=== PATIENT | male | born 1955 | race Hispanic/Latino ===

== ENCOUNTER 2018-03-05 12:25 | Inpatient (IN) | payer OTHER ==
[2018-03-05] MEDS ORDERED: Sodium Chloride 0.9% 1,000 ML IV ONE ×2 (13:23→15:04)
[2018-03-05 13:32] LABS: BASO % 0.5 % (0.0-2.0); EOS % 0.2 % (0.0-4.0); HEMOGLOBIN 15.7 g/dL (12.0-18.0); LYMPH # 0.6 K/uL (1.0-4.3); LYMPH % 6.4 % (20.0-40.0); MEAN CELL VOLUME 86.3 fL (80.0-94.0); MEAN CORPUSCULAR HEMOGLOBIN 29.1 pg (27.0-31.0); MEAN CORPUSCULAR HGB CONC 33.7 g/dL (33.0-37.0); MEAN PLATELET VOLUME 8.5 fL (7.2-11.7); MONO # 0.6 K/uL (0.0-0.8); MONO % 6.6 % (0.0-10.0); NEUT # 7.8 K/uL (1.8-7.0); NEUT % 86.3 % (50.0-75.0); NRBC % 0.1 % (0.0-2.0); PLATELET COUNT 239 K/uL (130-400); RED CELL DISTRIBUTION WIDTH 14.7 % (11.5-14.5)
[2018-03-05 13:46] LABS: ALBUMIN 3.2 g/dL (3.5-5.0); ALT/SGPT 6 U/L (21-72); AST/SGOT 36 U/L (17-59); BLOOD UREA NITROGEN 9 mg/dL (9-20); CALCIUM 8.4 mg/dl (8.6-10.4); GFR NON-AFRICAN AMERICAN > 60
--- NOTE | 2018-03-05 13:48 | C.PDOC ---
History Of Present Illness 62 y/o male, with history of diabetes and hypertension, comes in stating that he fell yesterday morning after feeling weak and had difficulty walking. Patient states he was in bed and got up to use the bathroom when he started feeling weak and slid to the floor. Patient was unable to get up and spent most of his day in his bedroom on the floor. States some residents in his apartment eventually came to check on him and found him on floor, prompting them to call EMS. Upon arrival, patient was helped to bed by EMS and felt okay and refused transport to the hospital. During that night, he got up and felt weak again. Patient did not eat or drink anything during the day and again fell to the floor, where he called 911. Patient presents to ED stating he has trouble walking with his legs and has chronic pain but nothing new. Otherwise he denies injury, chest pain, SOB, headache, LOC, or head injury. Time Seen by Provider: 03/05/18 13:16 Chief Complaint (Nursing): Weakness/Neurological Deficit History Per: Patient History/Exam Limitations: no limitations Onset/Duration Of Symptoms: Days Current Symptoms Are (Timing): Still Present Past Medical History Reviewed: Historical Data, Nursing Documentation, Vital Signs Vital Signs: Last Vital Signs Temp 98.7 F 03/05/18 12:36 Pulse 96 H 03/05/18 13:31 Resp 23 03/05/18 13:31 BP 148/84 03/05/18 13:31 Pulse Ox 97 03/05/18 13:31 - Medical History PMH: Diabetes, HTN Denies: Chronic Kidney Disease Surgical History: Cholecystectomy (05/2014) - [facility] Procedures DETACHMENT AT LEFT 5TH TOE, COMPLETE, OPEN APPROACH (02/04/15) Family History: States: No Known Family Hx - Social History Hx Tobacco Use: No Hx Alcohol Use: No Hx Substance Use: No - Immunization History Hx Tetanus Toxoid Vaccination: No Hx Influenza Vaccination: No Hx Pneumococcal Vaccination: No Review Of Systems Constitutional: Positive for: Weakness, Malaise. Negative for: Fever Cardiovascular: Positive for: Edema (chronic). Negative for: Chest Pain Respiratory: Negative for: Shortness of Breath Gastrointestinal: Negative for: Abdominal Pain, Diarrhea Musculoskeletal: Positive for: Leg Pain (bilaterally) Neurological: Negative for: Headache Physical Exam - Physical Exam Appears: Non-toxic, In Acute Distress, Unkempt Skin: Warm, Dry, Rash (groin and perineum including scrotum extending onto bilateral thighs, moist erythema ) Head: Atraumatic, Normacephalic Eye(s): bilateral: Normal Inspection, PERRL, EOMI Oral Mucosa: Dry Neck: Supple Chest: Symmetrical Cardiovascular: Rhythm Regular (tachycardic with occasional PVCs), No Murmur Respiratory: Normal Breath Sounds, No Rales, No Rhonchi, No Wheezing Gastrointestinal/Abdominal: Soft, No Tenderness, No Guarding Extremity: Pedal Edema (on bilateral legs; tense brawny edema with weeping from lower legs) Extremity: Bilateral: Normal Color And Temperature, Normal ROM Neurological/Psych: Oriented x3, Normal Speech ED Course And Treatment - Laboratory Results Result Diagrams: 18 13:28 1218 13:28 Lab Interpretation: Abnormal (Glucose 341, CPK 396, urine concentrated with blood, ketones and glucose) ECG: Interpreted By Ri ECG Rhythm: Junctional Rhythm (tachycardic with occasional PVCs), ST/T Changes (nonspecific) O2 Sat by Pulse Oximetry: 97 (RA) Pulse Ox Interpretation: Normal - Radiology CXR: Interpreted by Ri CXR Interpretation: Yes: Cardiomegaly (with vascular congestion). 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 Medical Decision Making Medical Decision Making: Plan: --EKG --Labs --IV fluids --Urinalysis Disposition - Disposition Disposition: HOSPITALIZED Disposition Time: 16:03 Condition: STABLE - POA Present On Arrival: Poor Glycemic Control - Clinical Impression Clinical Impression: Uncontrolled diabetes mellitus, Dehydration, Tinea cruris - Scribe Statement The provider has reviewed the documentation as recorded by the Josephine Wodo Provider Attestation: All medical record entries made by the Josephine were at my direction and personally dictated by me. I have reviewed the chart and agree that the record accurately reflects my personal performance of the history, physical exam, medical decision making, and the department course for this patient. I have also personally directed, reviewed, and agree with the discharge instructions and disposition.
[2018-03-05] MEDS ORDERED: Sodium Chloride 0.9% 1,000 ML ONE ×2 (13:50→15:10)
[2018-03-05 14:23] LABS: BANDS 1 % (0-2); LYMPHOCYTE 6 % (20-40); MONOCYTE 7 % (0-10); NEUTROPHIL 86 % (50-75); PLATELET ESTIMATE NORMAL (NORMAL); TOTAL CELLS COUNTED 100
[2018-03-05 14:24] LABS: ANISOCYTOSIS SLIGHT; LARGE PLATELETS PRESENT
[2018-03-05 15:02] LABS: SQUAMOUS EPITHIAL 1 /hpf (0-5); URINE BACTERIA RARE (<OCC); URINE BILIRUBIN NEGATIVE (NEGATIVE); URINE BLOOD 2+ (NEGATIVE); URINE CLARITY Clear (Clear); URINE COLOR Yellow (YELLOW); URINE GLUCOSE (UA) 3+ mg/dL (Normal); URINE LEUKOCYTE ESTERASE TRACE Leu/uL (Negative); URINE PROTEIN 3+ mg/dL (NEGATIVE); URINE UROBILINOGEN NORMAL mg/dL (0.2-1.0)
[2018-03-05 16:05] LABS: INFLUENZA A B NEGATIVE FOR FLU A/B (NEGATIVE)
[2018-03-05 16:16] LABS: TROPONIN I 0.046 ng/mL (0.00-0.120)
--- NOTE | 2018-03-05 16:30 | CP.PCM.HP ---
<Aida Wei - Last Filed: 03/05/18 17:38> History of Present Illness - History of Present Illness History of Present Illness: CC: I fell Patient is a 62 year old male with PMHx of DM2 and HTN who presents to the ED today s/p 2 falls. Pt reports he fell yesterday while trying to get up from bed. Pt reports he felt somewhat lightheaded, then slipped on his wood floor attempting to get out of bed. Pt reports he landed on his bottom and denies LOC or trauma to head. Pt was then unable to get up from floor, and remained there overnight until neighbors called EMS. Pt refused to go to hospital as he thought the lightheadedness had passed, and had no pain. Pt then sustained a second fall getting out of bed this morning, and immediately called EMS to bring him to ED. Once again pt reports attempting to roll out of bed, falling onto knees; denies LOC of trauma to head. Pt denies previous history of falls or syncopal events. Pt reports approximately 2 months of dry cough. Swelling in legs bilaterally. Numbness to medial dorsum of feet bilaterally. Patient denies recent illness or fever like symptoms including chilss/sweats. Denies chest pain, SOB, abdominal pain, nausea, diarrhea, dysuria. PMD: [place] PMHx: DM2, HTN, PSHx: left 5th toe amputation Meds: metformin, unknown antihypertensive Allergies: NKDA FamHx: DM2, HTN SocHx: denies alcohol/tobacco/drug use. Lives alone Healthcare proxy: Rut Tate, sister Code status: Wants DNR/DNI Present on Admission - Present on Admission Any Indicators Present on Admission: No Review of Systems - EENT Eyes: absent: Blurred Vision - Cardiovascular Cardiovascular: Leg Edema, Leg Ulcers. absent: Chest Pain - Respiratory Respiratory: Cough. absent: Dyspnea - Gastrointestinal Gastrointestinal: absent: Abdominal Pain, Diarrhea, Nausea - Genitourinary Genitourinary: absent: Difficulty Urinating, Dysuria - Integumentary Integumentary: Change in Pigmentation, Swelling (b/l legs) - Neurological Neurological: Numbness (medial feet b/l), Paresthesias. absent: Abnormal Gait - Psychiatric Psychiatric: absent: Confusion Past Patient History - Past Medical History & Family History Past Medical History?: Yes - Past Social History Smoking Status: Never Smoked - CARDIAC Hx Hypertension: Yes - PULMONARY Hx Respiratory Disorders: No - NEUROLOGICAL Hx Neurological Disorder: No - HEENT Hx HEENT Problems: No - RENAL Hx Chronic Kidney Disease: No - ENDOCRINE/METABOLIC Hx Diabetes Mellitus Type 2: Yes - HEMATOLOGICAL/ONCOLOGICAL Hx Blood Disorders: No - INTEGUMENTARY Hx Dermatological Problems: No - MUSCULOSKELETAL/RHEUMATOLOGICAL Hx Musculoskeletal Disorders: No Hx Falls: No - GASTROINTESTINAL Hx Gastrointestinal Disorders: No - GENITOURINARY/GYNECOLOGICAL Hx Genitourinary Disorders: No - PSYCHIATRIC Hx Substance Use: No - SURGICAL HISTORY Hx Cholecystectomy: Yes (05/2014) - ANESTHESIA Hx Anesthesia: Yes Hx Anesthesia Reactions: No Meds Allergies/Adverse Reactions: Allergies Allergy/AdvReac Type Severity Reaction Status Date / Time No Known Allergies Allergy Verified 03/05/18 12:30 Physical Exam - Constitutional Appears: No Acute Distress, Unkempt - Head Exam Head Exam: ATRAUMATIC, NORMAL INSPECTION, NORMOCEPHALIC - Eye Exam Eye Exam: EOMI, Scleral icterus Pupil Exam: NORMAL ACCOMODATION, PERRL - ENT Exam ENT Exam: Mucous Membranes Dry, Normal Exam Additional comments: nasal mucosa non-erythematous, dry - Neck Exam Neck exam: Positive for: Normal Inspection. Negative for: Lymphadenopathy, Thyromegaly - Respiratory Exam Respiratory Exam: Rales (b/l basilar rales), NORMAL BREATHING PATTERN. absent: Respiratory Distress - Cardiovascular Exam Cardiovascular Exam: Tachycardia, +S1, +S2. absent: REGULAR RHYTHM (occasion 4th or 5th skipped/extra beat) - GI/Abdominal Exam GI & Abdominal Exam: Normal Bowel Sounds, Soft. absent: Tenderness - Exam Exam: Scrotal Swelling. absent: NORMAL INSPECTION (scrotum and surrounding groing grossly erythematous. Penile retraction. B/L intertriginous groin with visible white fungus, moist.) - Extremities Exam Additional comments: B/L LE edema, red. Blanching. Disappears with leg raise RLE: linear unstageable lesion extending down right canchola anteriorly, approx 10cm in length. Right calf with multiple ulcerations from 1-4cm, stage 2. Left LE, no visible ulcerations. 5th digit amputated. Distal 1/3 of lower legs B/L cov ered with scaly skin/exophytic growths to toes. Nails thickened and discolored. - Back Exam Additional comments: erythematous crevices on buttock moist, covered with white fungus - Neurological Exam Neurological exam: Alert, Oriented x3 - Psychiatric Exam Psychiatric exam: Normal Affect, Normal Mood - Skin Skin Exam: Warm Results - Vital Signs Recent Vital Signs: Last Vital Signs Temp 98.7 F 03/05/18 12:36 Pulse 99 H 03/05/18 16:02 Resp 21 03/05/18 16:02 BP 152/86 H 03/05/18 16:02 Pulse Ox 97 03/05/18 16:04 - Labs Result Diagrams: 03/05/18 13:28 03/05/18 13:28 Labs: Laboratory Results - last 24 hr 03/05/18 03/05/18 03/05/18 13:03 13:28 13:28 WBC 9.0 D RBC 5.40 Hgb 15.7 Hct 46.6 MCV 86.3 MCH 29.1 MCHC 33.7 RDW 14.7 H Plt Count 239 MPV 8.5 Neut % (Auto) 86.3 H Lymph % (Auto) 6.4 L Wallace % (Auto) 6.6 Eos % (Auto) 0.2 Baso % (Auto) 0.5 Neut # (Auto) 7.8 H Lymph # (Auto) 0.6 L Wallace # (Auto) 0.6 Eos # (Auto) 0.0 Baso # (Auto) 0.0 Neutrophils % (Manual) 86 H Band Neutrophils % 1 Lymphocytes % (Manual) 6 L Monocytes % (Manual) 7 Platelet Estimate Normal Large Platelets Present Anisocytosis (manual) Slight Sodium 133 Potassium 4.5 Chloride 100 Carbon Dioxide 22 Anion Gap 17 BUN 9 Creatinine 0.6 L Est GFR ( Amer) > 60 Est GFR (Non-Af Amer) > 60 POC Glucose (mg/dL) 354 H Random Glucose 341 H Calcium 8.4 L Magnesium 1.7 Total Bilirubin 2.0 H AST 36 ALT 6 L D Alkaline Phosphatase 70 Total Creatine Kinase 396 H Troponin I Total Protein 6.6 Albumin 3.2 L Globulin 3.4 Albumin/Globulin Ratio 1.0 Urine Color Urine Clarity Urine pH Ur Specific [place] Urine Protein Urine Glucose (UA) Urine Ketones Urine Blood Urine Nitrate Urine Bilirubin Urine Urobilinogen Ur Leukocyte Esterase Urine WBC (Auto) Urine RBC (Auto) Ur Squamous Epith Cells Urine Bacteria Hyaline Casts Influenza Typ A,B (EIA) 03/05/18 03/05/18 03/05/18 14:40 15:40 15:44 WBC RBC Hgb Hct MCV MCH MCHC RDW Plt Count MPV Neut % (Auto) Lymph % (Auto) Wallace % (Auto) Eos % (Auto) Baso % (Auto) Neut # (Auto) Lymph # (Auto) Wallace # (Auto) Eos # (Auto) Baso # (Auto) Neutrophils % (Manual) Band Neutrophils % Lymphocytes % (Manual) Monocytes % (Manual) Platelet Estimate Large Platelets Anisocytosis (manual) Sodium Potassium Chloride Carbon Dioxide Anion Gap BUN Creatinine Est GFR ( Amer) Est GFR (Non-Af Amer) POC Glucose (mg/dL) Random Glucose Calcium Magnesium Total Bilirubin AST ALT Alkaline Phosphatase Total Creatine Kinase Troponin I 0.0460 Total Protein Albumin Globulin Albumin/Globulin Ratio Urine Color Yellow Urine Clarity Clear Urine pH 5.0 Ur Specific [place] 1.027 Urine Protein 3+ H Urine Glucose (UA) 3+ H Urine Ketones 1+ H Urine Blood 2+ H Urine Nitrate Negative Urine Bilirubin Negative Urine Urobilinogen Normal Ur Leukocyte Esterase Trace Urine WBC (Auto) 7 H Urine RBC (Auto) 19 H Ur Squamous Epith Cells 1 Urine Bacteria Rare Hyaline Casts 3-5 H Influenza Typ A,B (EIA) Negative for flu a/b Assessment & Plan - Assessment and Plan (Free Text) Assessment: 62 year old male with PMHx of DM2, HTN admitted s/p fall; evaluated for LE lymphedema/venous insufficiency Plan: s/p fall, 2/2 LE weakness/parasthesias, new onset HF -fall risk protocol -f/u head CT -f/u knee x-rays -f/u hip x-ray -TSH, T4, RPR, vit b12, folate, vit D, UDS Cardiomegaly, R/O CHF -abnormal EKG w/ PVCs and ST/T wave abnormalities -f/u cardiac enzymes, troponin, pBNP -CXR -lasix -f/u echo -head of bed @45 degrees -daily weights, I/O -cardio consult Dr. Shahram GUZMAN edema, likely 2/2 chronic venous insufficiency vs HF -SCD contraindication -lasix -non erythematous -ulcers to be eval and treated by wound care -f/u LE duplex -podiatry consult, Dr. Guillermina GUZMAN ulcers, stage 2 and unstageable -lasix -wound care Fungal infection, B/L inguinal, scrotal, intergluteal cleft -topical nystatin BID [id number] -rowley for penile retraction, rowley care w/ betadine TID DM2 -hold home meds -hgb a1c -ISS -hypoglycemia protocol -lipid panel Poor hygeine, difficulty caring for self-pt agreed -keycase assembler/social eval -PT eval, likely to OMI HTN -lasix -lisinopril Possible UTI -urine cx -ceftriaxone 1g qd Ppx -lactobacillus -HH low Na diet -DVT ppx, heparin after CT head negative, DVT risk~4 Discussed w/ Dr. Luna -Aida Wei, PGY-1 <José Miguel Luna - Last Filed: 03/06/18 20:14> Results - Vital Signs Recent Vital Signs: Last Vital Signs Temp 99.3 F 03/06/18 15:00 Pulse 92 H 03/06/18 18:00 Resp 18 03/06/18 15:00 BP 159/75 H 03/06/18 16:18 Pulse Ox 98 03/06/18 15:00 - Labs Result Diagrams: 03/06/18 08:33 03/06/18 08:33 Labs: Laboratory Results - last 24 hr 03/05/18 03/06/18 03/06/18 21:00 02:02 07:04 WBC RBC Hgb Hct MCV MCH MCHC RDW Plt Count MPV Neut % (Auto) Lymph % (Auto) Wallace % (Auto) Eos % (Auto) Baso % (Auto) Neut # (Auto) Lymph # (Auto) Wallace # (Auto) Eos # (Auto) Baso # (Auto) Sodium Potassium Chloride Carbon Dioxide Anion Gap BUN Creatinine Est GFR ( Amer) Est GFR (Non-Af Amer) POC Glucose (mg/dL) 435 H* 300 H 260 H Random Glucose Hemoglobin A1c Calcium Phosphorus Magnesium Total Bilirubin AST ALT Alkaline Phosphatase Total Protein Albumin Globulin Albumin/Globulin Ratio Triglycerides Cholesterol LDL Cholesterol Direct HDL Cholesterol Digoxin 03/06/18 03/06/18 03/06/18 08:33 08:33 08:33 WBC 7.0 RBC 4.98 Hgb 14.0 Hct 42.5 MCV 85.3 MCH 28.1 MCHC 32.9 L RDW 14.6 H Plt Count 192 MPV 8.4 Neut % (Auto) 72.9 Lymph % (Auto) 14.8 L Wallace % (Auto) 9.3 Eos % (Auto) 2.2 Baso % (Auto) 0.8 Neut # (Auto) 5.1 Lymph # (Auto) 1.0 Wallace # (Auto) 0.7 Eos # (Auto) 0.2 Baso # (Auto) 0.1 Sodium 139 Potassium 3.0 L Chloride 102 Carbon Dioxide 30 Anion Gap 10 BUN 12 Creatinine 0.8 Est GFR ( Amer) > 60 Est GFR (Non-Af Amer) > 60 POC Glucose (mg/dL) Random Glucose 221 H Hemoglobin A1c 12.7 H Calcium 8.4 L Phosphorus 3.4 Magnesium 1.7 Total Bilirubin 1.0 AST 24 ALT 22 Alkaline Phosphatase 65 Total Protein 5.6 L Albumin 2.8 L Globulin 2.8 Albumin/Globulin Ratio 1.0 Triglycerides 112 Cholesterol 119 LDL Cholesterol Direct 64 HDL Cholesterol 47 Digoxin 03/06/18 03/06/18 03/06/18 08:33 11:23 16:04 WBC RBC Hgb Hct MCV MCH MCHC RDW Plt Count MPV Neut % (Auto) Lymph % (Auto) Wallace % (Auto) Eos % (Auto) Baso % (Auto) Neut # (Auto) Lymph # (Auto) Wallace # (Auto) Eos # (Auto) Baso # (Auto) Sodium Potassium Chloride Carbon Dioxide Anion Gap BUN Creatinine Est GFR ( Amer) Est GFR (Non-Af Amer) POC Glucose (mg/dL) 268 H 277 H Random Glucose Hemoglobin A1c Calcium Phosphorus Magnesium Total Bilirubin AST ALT Alkaline Phosphatase Total Protein Albumin Globulin Albumin/Globulin Ratio Triglycerides Cholesterol LDL Cholesterol Direct HDL Cholesterol Digoxin < 0.4 L Attending/Attestation - Attestation I have personally seen and examined this patient.: Yes I have fully participated in the care of the patient.: Yes I have reviewed all pertinent clinical information: Yes Notes (Text): 03/06/18 20:13 This is a late entry. Patient was seen together with resident Dr Carmina Wei at the time of admission on 03/05/18 in ER Bed #9. History, Physical, Assessment and Plan, and all Orders were gone over with Dr. Wei. José Miguel Luna D.O.
[2018-03-05 16:41] LABS: BARBITURATES, UR NEGATIVE (NEGATIVE); BENZODIAZEPINES, UR NEGATIVE (NEGATIVE); OPIATES, UR NEGATIVE (NEGATIVE); PHENCYCLIDINE, UR NEGATIVE (NEGATIVE)
[2018-03-05 16:56] LABS: RAPID PLASMA REAGIN NONREACTIVE (NONREACTIVE)
[2018-03-05] MEDS ORDERED: Dextrose 50% SYRINGE Inj (50 ml) IV PRN (16:59)
[2018-03-05] MEDS ORDERED: Glucagon Recombinant 1 mg Inj IM PRN (16:59)
[2018-03-05] MEDS: Lactobacillus Acidophilus 500 MU Cap PO SCH (17:40)
[2018-03-05] MEDS ORDERED: cefTRIAXone 1 gm 1 GM/100 ML BAG IVPB ONE (17:40)
--- NOTE | 2018-03-05 17:44 | RAD ---
PROCEDURE: Radiographs of the pelvis and bilateral hips HISTORY: S/p Fall COMPARISON: None. FINDINGS: BONES: There is impacted fracture of the left femoral neck with mild valgus deformity of the major distal fracture fragment. No right hip fracture identified. Diffuse osteopenia suggests osteoporosis. JOINTS: Symmetric bilateral degenerative weight-bearing cortical sclerosis and osteophyte formation are identified at the hip joints without subluxation or dislocation evident. Lesser degenerative changes are seen the bilateral sacroiliac joints. Pubic symphysis: Unremarkable. SOFT TISSUES: Vasa differentia calcifications are identified in the pelvis soft tissues. OTHER FINDINGS: None. IMPRESSION: Impacted fracture left femoral neck without dislocation. Diffuse osteopenia suggests osteoporosis. Degenerative hip greater than sacroiliac joint changes bilaterally.
--- NOTE | 2018-03-05 17:46 | RAD ---
Date of service: 03/05/2018 PROCEDURE: Bilateral Knee Radiographs. HISTORY: S/P Fall COMPARISON: None. FINDINGS: BONES: No acute fracture or destructive bony lesion identified bilaterally. JOINTS: Advanced tricompartmental osteoarthritis appreciated manifest by joint space narrowing, articular cortical sclerosis and osteophyte development, seen worst at the bilateral medial femorotibial and patellofemoral compartments. SOFT TISSUES: Right Knee: Normal. Left Knee: Normal. JOINT EFFUSION: Small bilateral suprapatellar bursa effusions are identified with limited posterior vascular calcifications in the popliteal fossae. OTHER FINDINGS: None. IMPRESSION: Advanced tricompartmental osteoarthritis bilateral knees. No acute fracture, subluxation or dislocation.
[2018-03-05] MEDS ORDERED: (Novolin R) Insulin Human Regular 100 units/ml vial ONE (17:53)
--- NOTE | 2018-03-05 17:54 | CT ---
Date of service: 03/05/2018 PROCEDURE: CT HEAD WITHOUT CONTRAST. HISTORY: weakness COMPARISON: None available. TECHNIQUE: Axial computed tomography images were obtained through the head/brain without intravenous contrast. Radiation dose: Total exam DLP = 1093.3 mGy-cm. This CT exam was performed using one or more of the following dose reduction techniques: Automated exposure control, adjustment of the mA and/or kV according to patient size, and/or use of iterative reconstruction technique. FINDINGS: HEMORRHAGE: No intracranial hemorrhage. BRAIN: No mass effect or edema. Mild volume loss and [id number] white matter changes likely represent chronic microvascular ischemic disease. Sub centimeter encephalomalacia at the right basal ganglia likely represent chronic lacunar infarct. VENTRICLES: Unremarkable. No hydrocephalus. CALVARIUM: Unremarkable. PARANASAL SINUSES: Complete opacification of the left maxillary sinus. MASTOID AIR CELLS: Unremarkable as visualized. No inflammatory changes. OTHER FINDINGS: None. IMPRESSION: No evidence of acute intracranial hemorrhage intracranial collection mass effect or midline shift.
--- NOTE | 2018-03-05 17:58 | RAD ---
Date of service: 03/05/2018 HISTORY: weakness COMPARISON: No prior. FINDINGS: LUNGS: No definite acute infiltrate bilaterally. Nodule not excluded right base. Consider follow-up chest CT to exclude potential nodule. PLEURA: No significant pleural effusion identified, no pneumothorax apparent. CARDIOVASCULAR: No aortic atherosclerotic calcification present. Cardiomegaly with mild pulmonary vascular congestion appreciated. Study is somewhat underpenetrated accentuating bronchovascular markings. OSSEOUS STRUCTURES: No significant abnormalities. VISUALIZED UPPER ABDOMEN: Normal. OTHER FINDINGS: None. IMPRESSION: Cardiomegaly and pulmonary vascular congestion noted. No infiltrates bilaterally. Questionable nodule right base versus nipple shadow. Consider follow-up chest CT for more definitive characterization of right base.
[2018-03-05] MEDS: (Novolin R) Insulin Human Regular 100 units/ml vial SC SCH (21:07)
[2018-03-06] MEDS: (Novolin R) Insulin Human Regular 100 units/ml vial SC SCH ×4 (08:22→21:29)
--- NOTE | 2018-03-06 08:29 | CP.PCM.PN ---
<Aida Wei - Last Filed: 03/06/18 16:00> Subjective - Date & Time of Evaluation Date of Evaluation: 03/06/18 Time of Evaluation: 08:00 - Subjective Subjective: Patient examined at bedside, resting comfortably. Patient reports he slept well overnight and offers no complaint. Denies dizziness, chest pain, SOB, abdominal pain, nausea, diarrhea. Pt reports he doesn't know what nursing has done to him regarding cleaning of skin/fungus and wound care of ulcers. Pt was unaware he had a rowley inserted to collect urine. Denies pain. Objective - Vital Signs/Intake and Output Vital Signs (last 24 hours): Temp Pulse Resp BP Pulse Ox 98.9 F 83 10 L 158/75 H 96 03/06/18 07:00 03/06/18 07:29 03/06/18 07:00 03/06/18 07:00 03/06/18 07:00 Intake and Output: 03/06/18 03/06/18 06:59 18:59 Output Total 1200 Balance -1200 - Medications Medications: Current Medications Dextrose (Dextrose 50% Inj) 0 ml IV STAT PRN; Protocol PRN Reason: Hypoglycemia Protocol Dextrose (Glutose 15) 0 gm PO ONCE PRN; Protocol PRN Reason: Hypoglycemia Protocol Docusate Sodium (Colace) 100 mg PO BID [facility] Last Admin: 03/05/18 19:38 Dose: Not Given Furosemide (Lasix) 20 mg IVP Q12H [facility] Last Admin: 03/06/18 05:38 Dose: 20 mg Glucagon (Glucagen Diagnostic Kit) 0 mg IM STAT PRN; Protocol PRN Reason: Hypoglycemia Protocol Heparin Sodium (Porcine) (Heparin) 5,000 units SC Q8 [facility] Last Admin: 03/06/18 05:41 Dose: 5,000 units Dextrose (Dextrose 5% In Water 1000 Ml) 1,000 mls @ 0 mls/hr IV .Q0M PRN; Protocol PRN Reason: Hypoglycemia Protocol Ceftriaxone Sodium 1 gm/ (Sodium Chloride) 100 mls @ 100 mls/hr IVPB DAILY [facility]; Protocol Last Admin: 03/05/18 17:39 Dose: 100 mls/hr Insulin Human Regular (Novolin R) 0 unit SC ACHS [facility]; Protocol Last Admin: 03/05/18 21:07 Dose: 4 units Lactobacillus Acidophilus (Bacid Acidophilus) 1 cap PO BID [facility] Last Admin: 12/15/18 17:40 Dose: 1 cap Lisinopril (Zestril) 10 mg PO DAILY [facility] Last Admin: 03/05/18 17:40 Dose: 10 mg Morphine Sulfate (Morphine) 0.5 mg IVP Q6 PRN PRN Reason: Pain, moderate (4-7) Morphine Sulfate (Morphine) 1 mg IVP Q6 PRN PRN Reason: Pain, severe (8-10) Nystatin (Nystop Topical Powder) 1 applic TOP BID [facility] Stop: 03/20/18 18:00 Last Admin: 03/05/18 18:04 Dose: 1 applic Pneumococcal Polyvalent Vaccine (Pneumovax 23 Vaccine) 0.5 ml IM .ONCE ONE Stop: 03/08/18 10:01 - Labs Labs: 03/05/18 13:28 03/05/18 13:28 - Constitutional Appears: Non-toxic, No Acute Distress - Head Exam Head Exam: ATRAUMATIC, NORMAL INSPECTION, NORMOCEPHALIC - Eye Exam Eye Exam: EOMI, Normal appearance - ENT Exam ENT Exam: Mucous Membranes Moist, Normal Exam - Neck Exam Neck Exam: Normal Inspection - Respiratory Exam Respiratory Exam: Decreased Breath Sounds, Rales, NORMAL BREATHING PATTERN Additional comments: bibasilar rales - Cardiovascular Exam Cardiovascular Exam: REGULAR RHYTHM, +S1, +S2 - GI/Abdominal Exam GI & Abdominal Exam: Soft, Normal Bowel Sounds. absent: Tenderness - Exam Exam: absent: NORMAL INSPECTION (erythema to scrotum and inguinal folds, nystatin powder applied. Penile retraction with rowley draining clear yellow urine.) - Extremities Exam Additional comments: B/L LE from knees down 2+ pitting edema. Redness improved. Non tender to pa lpation. Much of excess skin/fungal growth cleaned from distal 1/3 of leg to toes, healthy intact skin now visible. RLE ulcers cleaned with ointment applied. Toes, thick and discolored. - Neurological Exam Neurological Exam: Alert, Awake, Oriented x3 - Psychiatric Exam Psychiatric exam: Normal Affect, Normal Mood - Skin Skin Exam: Dry, Warm Additional comments: LE ulcers and growths as noted above gluteal/inguinal erythema as noted above Assessment and Plan - Assessment and Plan (Free Text) Assessment: 62 year old male with PMHx of DM2, HTN admitted s/p fall; evaluated for LE l ymphedema/venous insufficiency Plan: CHF -abnormal EKG w/ PVCs and ST/T wave abnormalities -bnp~12,000 -CXR: cardiomegaly -lasix -f/u echo -head of bed @45 degrees -daily weights, I/O -cardio consult Dr. Omalley LE edema, likely 2/2 chronic venous insufficiency vs CHF -SCD contraindication -lasix -ulcers to be eval and treated by wound care -lac-hydrin to dorsum and heels b/l BID x7 days. Stop(03/13) -f/u LE duplex -f/u LE ABIs, r/o PAD -podiatry consult, Dr. Sarmiento s/p fall, 2/2 LE weakness/paresthesias, new onset HF -fall risk protocol -head CT, knee x-rays, hip x-ray negative for acute fracture. Left fem neck fracture-old LE ulcers, stage 2 and unstageable -lasix -wound care Fungal infection, B/L inguinal, scrotal, intergluteal cleft -topical nystatin BID [id number] -rowley for penile retraction, rowley care w/ betadine TID DM2, uncontrolled -hold home meds -hgb a1c 12.7 -ISS -lantus 26u added -hypoglycemia protocol -lipid panel WNL, add low dose crestor Poor hygeine, difficulty caring for self-pt agreed -caser up/social eval -PT eval, likely to OMI HTN -lasix -lisinopril -Coreg Possible UTI -f/u urine cx -ceftriaxone 1g qd -d/c cef if cxs negative Vitamin Deficiency -vit D, b12, Ppx -lactobacillus -HH low Na diet -DVT ppx, heparin, DVT risk~4 Discussed w/ Dr. Luna -Aida Wei, PGY-1 <José Miguel Luna - Last Filed: 03/06/18 20:09> Objective - Vital Signs/Intake and Output Vital Signs (last 24 hours): Temp Pulse Resp BP Pulse Ox 99.3 F 92 H 18 159/75 H 98 03/06/18 15:00 03/06/18 18:00 03/06/18 15:00 03/06/18 16:18 03/06/18 15:00 Intake and Output: 12/16/18 12/17/18 18:59 06:59 Intake Total 500 Output Total 150 Balance 350 - Medications Medications: Current Medications Aspirin (Aspirin Chewable) 81 mg PO DAILY [facility] Last Admin: 03/06/18 16:19 Dose: 81 mg Carvedilol (Coreg) 3.125 mg PO BID [facility] Last Admin: 03/06/18 17:59 Dose: 3.125 mg Dextrose (Dextrose 50% Inj) 0 ml IV STAT PRN; Protocol PRN Reason: Hypoglycemia Protocol Dextrose (Glutose 15) 0 gm PO ONCE PRN; Protocol PRN Reason: Hypoglycemia Protocol Docusate Sodium (Colace) 100 mg PO BID [facility] Last Admin: 03/06/18 17:59 Dose: 100 mg Ergocalciferol (Drisdol 50,000 Intl Units Cap) 1 cap PO Q7D [facility] Stop: 04/24/18 14:00 Last Admin: 03/06/18 14:19 Dose: 1 cap Furosemide (Lasix) 20 mg IVP Q12H [facility] Last Admin: 03/06/18 16:18 Dose: 20 mg Glucagon (Glucagen Diagnostic Kit) 0 mg IM STAT PRN; Protocol PRN Reason: Hypoglycemia Protocol Heparin Sodium (Porcine) (Heparin) 5,000 units SC Q8 [facility] Last Admin: 03/06/18 13:41 Dose: 5,000 units Dextrose (Dextrose 5% In Water 1000 Ml) 1,000 mls @ 0 mls/hr IV .Q0M PRN; Protocol PRN Reason: Hypoglycemia Protocol Ceftriaxone Sodium 1 gm/ (Sodium Chloride) 100 mls @ 100 mls/hr IVPB DAILY [facility]; Protocol Last Admin: 03/06/18 09:52 Dose: 100 mls/hr Insulin Glargine (Lantus) 26 unit SC HS [facility] Insulin Human Regular (Novolin R) 0 unit SC ACHS [facility]; Protocol Last Admin: 03/06/18 16:19 Dose: 6 units Lactic Acid (Lac-Hydrin 12% Lotion (225 G)) 0 gm EXT BID [facility] Stop: 03/20/18 16:00 Last Admin: 03/06/18 18:07 Dose: Not Given Lactobacillus Acidophilus (Bacid Acidophilus) 1 cap PO BID [facility] Last Admin: 03/06/18 17:59 Dose: 1 cap Lisinopril (Zestril) 10 mg PO DAILY [facility] Last Admin: 03/06/18 09:54 Dose: 10 mg Morphine Sulfate (Morphine) 0.5 mg IVP Q6 PRN PRN Reason: Pain, moderate (4-7) Morphine Sulfate (Morphine) 1 mg IVP Q6 PRN PRN Reason: Pain, severe (8-10) Nystatin (Nystop Topical Powder) 1 applic TOP BID [facility] Stop: 03/20/18 18:00 Last Admin: 03/06/18 18:00 Dose: 1 applic Pneumococcal Polyvalent Vaccine (Pneumovax 23 Vaccine) 0.5 ml IM .ONCE ONE Stop: 03/08/18 10:01 Potassium Chloride (Potassium Chloride Oral Soln) 20 meq PO Q2 [facility] Stop: 03/06/18 20:01 Last Admin: 03/06/18 18:21 Dose: 20 meq Potassium Chloride (K-Dur 20 Meq Er Tab) 20 meq PO ONCE ONE Stop: 03/07/18 08:01 Rosuvastatin Calcium (Crestor) 2.5 mg PO HS [facility] - Labs Labs: 03/06/18 08:33 03/06/18 08:33 Attending/Attestation - Attestation I have personally seen and examined this patient.: Yes I have fully participated in the care of the patient.: Yes I have reviewed all pertinent clinical information, including history, physical exam and plan: Yes Notes (Text): 03/06/18 19:55 Patient was seen and examined at 2:00 PM 03/06/18 Bed 566 P Care of this patient was gone over in detail with resident Dr. Carmina Wei. Please see her note for full details. Also on Exam: 2+ Pitting edema in bilateral LE from feet to the tibial tuberosities Low Vitamin B12: ordered Vitamin B12 1,000 mcg IM x 1 dose 03/06/18 Low Vitamin D: ordered Vitamin D 50,000 Units PO 1x/week on Sundays x 8 with last dose on 04/24/18. Upon discharge patient should be instructed to have repeat Vitamin D level 4 weeks after last dose F/U 2D Echocardiogram performance on Wednesday03/07/18 to help determine type of suspected Heart Failure. Patient is currently on ASA, Coreg, and Lisinopril. F/U performance of Venous Duplex Bilateral LE to rule out DVT. F/U performance of Arterial Duplex Bilateral LE to help determine possible PAD as cause of patient's bilateral lower leg pain although likely cause is the history of lower extremity edema likely secondary to undiagnosed Heart Failure. Patient has bilateral feet numbness on the dorsal aspect. This could be secondary to the edema. However, considering the HgBA1C > 12, this is likely due to Diabetic Neuropathy from uncontrolled diabetes. Patient was on oral medications for DM 2 (Metformin, Januvia, and Glucotrol). These were held due to the likely acute heart failure. Patient was placed on Regular Insulin Sliding Scale upon admission for 24 hours. Based upon a weight of 130 kg and that he is insulin naive, started him 0.2 units/kg of Lantus which comes out to 26 units Lantus to be started on night of 03/06/18. Medicine Team should adjust the Lantus and add premeal rapid acting insulin on 03/08/18 based upon accuchecks from 7 AM 03/07/18 through 7 AM 03/08/18. Patient will need to have Diabetic Counseling from the Diabetic Nurse from [place] and consult for her has been ordered. Follow up Urine Culture Follow up with Physical Therapy on 03/07/18. Follow up with [facility] on 03/07/18 as patient will likely need Subacute Rehab and home care/visiting nurse. José Miguel Luna D.O.
[2018-03-06 09:02] LABS: ALBUMIN 2.8 g/dL (3.5-5.0); ALT/SGPT 22 U/L (21-72); AST/SGOT 24 U/L (17-59); BLOOD UREA NITROGEN 12 mg/dL (9-20); CALCIUM 8.4 mg/dl (8.6-10.4); GFR NON-AFRICAN AMERICAN > 60; HDL CHOLESTEROL 47 mg/dL (30-70)
[2018-03-06 09:10] LABS: LDL CHOLESTEROL 64 mg/dL (0-129)
[2018-03-06 09:25] LABS: BASO # 0.1 K/uL (0.0-0.2); BASO % 0.8 % (0.0-2.0); EOS # 0.2 K/uL (0.0-0.7); EOS % 2.2 % (0.0-4.0); LYMPH % 14.8 % (20.0-40.0); MEAN CELL VOLUME 85.3 fL (80.0-94.0); MEAN CORPUSCULAR HEMOGLOBIN 28.1 pg (27.0-31.0); MEAN CORPUSCULAR HGB CONC 32.9 g/dL (33.0-37.0); MEAN PLATELET VOLUME 8.4 fL (7.2-11.7); MONO # 0.7 K/uL (0.0-0.8); MONO % 9.3 % (0.0-10.0); NEUT # 5.1 K/uL (1.8-7.0); NEUT % 72.9 % (50.0-75.0); RBC 4.98 Mil/uL (4.40-5.90); RED CELL DISTRIBUTION WIDTH 14.6 % (11.5-14.5)
[2018-03-06] MEDS: Lactobacillus Acidophilus 500 MU Cap PO SCH ×2 (09:54→17:59)
--- NOTE | 2018-03-06 10:41 | CT ---
Date of service: 03/05/2018 PROCEDURE: CT of the left hip without contrast HISTORY: DEFINITION OF FRACTURE COMPARISON: Comparison is made with the previous x-ray of the left hip and pelvis dated 03/05/2018 TECHNIQUE: Axial and reformatted coronal and sagittal CT images of the left hip were obtained. Axial and reformatted CT images of the right hip and pelvis were also obtained. Total exam DLP: 1106.53 FINDINGS: There is deformity in the left femoral neck associated with callus formation and periosteal thickening suggestive of old impacted fracture with callus formation. No definite CT evidence of acute fracture. No evidence of left hip dislocation. Moderate to severe degenerative changes at the left hip noted. There is heterogeneous sclerotic and small lytic changes noted at the right femur subcapital region without definite evidence of acute fracture. [id number] right hip osteoarthritic changes are also noted. There is a Vega catheter in the bladder. Mild diffuse soft tissue edema noted. No evidence of discrete hematoma or fluid collection. IMPRESSION: Findings suspicious for old impacted left femoral neck fracture. No definite CT evidence of acute fracture. Moderate to severe left hip osteoarthritis. Preliminary report was submitted by [facility] contains concordant findings.
--- NOTE | 2018-03-06 12:20 | CP.PCM.CON ---
<Gifty,Nader - Last Filed: 03/06/18 14:25> History of Present Illness - History of Present Illness History of Present Illness: Podiatry consult note for Dr. Sarmiento: 62 year old male Patient with PMHx of DM2 and HTN who Seen and evaluated at the bedside with attending Dr. Sarmiento for redness, swelling and skin breaks of the b/l LE. Pt reports he felt yesterday twice while trying to get up from bed. Patient states that he follows up with Dr. Sarmiento. Patient reports approximately 2 months of Swelling in legs bilaterally. Numbness to medial dorsum of feet bilaterally. Patient reports mild pain in his LE at this time. Patient denies any other pedal complaint Patient denies any recent illness. He denies any recent F/N/V/C or SOB. He denies chest pain, abdominal pain, nausea, diarrhea, dysuria. PMH: DM2, HTN, PSH: left 5th toe amputation Allergies: NKDA Social Hx: Patient denies alcohol/tobacco/drug use. Lives alone Review of Systems - Review of Systems Review of Systems: As per HPI - Constitutional Constitutional: As Per HPI Past Patient History - Past Medical History & Family History Past Medical History?: Yes - Past Social History Smoking Status: Never Smoked - CARDIAC Hx Hypertension: Yes - PULMONARY Hx Respiratory Disorders: No - NEUROLOGICAL Hx Neurological Disorder: No - HEENT Hx HEENT Problems: No - RENAL Hx Chronic Kidney Disease: No - ENDOCRINE/METABOLIC Hx Diabetes Mellitus Type 2: Yes - HEMATOLOGICAL/ONCOLOGICAL Hx Blood Disorders: No - INTEGUMENTARY Hx Dermatological Problems: No - MUSCULOSKELETAL/RHEUMATOLOGICAL Hx Musculoskeletal Disorders: No Hx Falls: Yes (fell at home, close to the nursing station) - GASTROINTESTINAL Hx Gastrointestinal Disorders: No - GENITOURINARY/GYNECOLOGICAL Hx Genitourinary Disorders: No - PSYCHIATRIC Hx Substance Use: No - SURGICAL HISTORY Hx Cholecystectomy: Yes (05/2014) - ANESTHESIA Hx Anesthesia: Yes Hx Anesthesia Reactions: No Meds Allergies/Adverse Reactions: Allergies Allergy/AdvReac Type Severity Reaction Status Date / Time No Known Allergies Allergy Verified 03/05/18 12:30 - Medications Medications: Current Medications Dextrose (Dextrose 50% Inj) 0 ml IV STAT PRN; Protocol PRN Reason: Hypoglycemia Protocol Dextrose (Glutose 15) 0 gm PO ONCE PRN; Protocol PRN Reason: Hypoglycemia Protocol Docusate Sodium (Colace) 100 mg PO BID [facility] Last Admin: 03/06/18 09:54 Dose: 100 mg Furosemide (Lasix) 20 mg IVP Q12H [facility] Last Admin: 03/06/18 05:38 Dose: 20 mg Glucagon (Glucagen Diagnostic Kit) 0 mg IM STAT PRN; Protocol PRN Reason: Hypoglycemia Protocol Heparin Sodium (Porcine) (Heparin) 5,000 units SC Q8 [facility] Last Admin: 03/06/18 05:41 Dose: 5,000 units Dextrose (Dextrose 5% In Water 1000 Ml) 1,000 mls @ 0 mls/hr IV .Q0M PRN; Protocol PRN Reason: Hypoglycemia Protocol Ceftriaxone Sodium 1 gm/ (Sodium Chloride) 100 mls @ 100 mls/hr IVPB DAILY [facility]; Protocol Last Admin: 03/06/18 09:52 Dose: 100 mls/hr Insulin Human Regular (Novolin R) 0 unit SC ACHS [facility]; Protocol Last Admin: 03/06/18 08:22 Dose: 6 units Lactobacillus Acidophilus (Bacid Acidophilus) 1 cap PO BID [facility] Last Admin: 03/06/18 09:54 Dose: 1 cap Lisinopril (Zestril) 10 mg PO DAILY [facility] Last Admin: 03/06/18 09:54 Dose: 10 mg Morphine Sulfate (Morphine) 0.5 mg IVP Q6 PRN PRN Reason: Pain, moderate (4-7) Morphine Sulfate (Morphine) 1 mg IVP Q6 PRN PRN Reason: Pain, severe (8-10) Nystatin (Nystop Topical Powder) 1 applic TOP BID [facility] Stop: 03/20/18 18:00 Last Admin: 03/06/18 09:53 Dose: 1 applic Pneumococcal Polyvalent Vaccine (Pneumovax 23 Vaccine) 0.5 ml IM .ONCE ONE Stop: 03/08/18 10:01 Physical Exam - Head Exam Head Exam: ATRAUMATIC, NORMOCEPHALIC - Extremities Exam Additional comments: B/L LE focused exam: Vasc: DP/PT pulses are non-palpable b/l 2ry to edema. Cap refill < 3 seconds to all digits. Skin temperature gradient warm to warm from proximal to distal b/l. +3 pitting edema noted to b/l LE up to the level of the tibial tuberosity. Erytheama and mottling noted to b/l LE up to the level of the upper 1/3 of the leg. The erythema blenches out by direct pressure. Neuro: Gross and protective sensations are grossly diminished b/l Derm: +3 pitting edema noted to b/l LE up to the level of the tibial tuberosity. Erytheama and mottling noted to b/l LE up to the level of the upper 1/3 of the leg. The erythema blenches out by direct pressure. scattered breaks in the skin of both legs covered by dry eschars. Superficial ulcerations o noted on the lateral aspect of the left leg with mild serous drainage, No malodor. MSK: Muscle power intact 5/5 to all major muscle groups b/l. Mild pain on palpating the leg B/L. - Neurological Exam Neurological exam: Alert, Oriented x3 Results - Vital Signs Recent Vital Signs: Last Vital Signs Temp 98.9 F 03/06/18 07:00 Pulse 90 03/06/18 09:53 Resp 10 L 03/06/18 07:00 BP 150/81 03/06/18 09:53 Pulse Ox 96 03/06/18 07:00 - Labs Result Diagrams: 03/06/18 08:33 03/06/18 08:33 Labs: Laboratory Results - last 24 hr 03/05/18 03/05/18 03/05/18 13:03 13:28 13:28 WBC 9.0 D RBC 5.40 Hgb 15.7 Hct 46.6 MCV 86.3 MCH 29.1 MCHC 33.7 RDW 14.7 H Plt Count 239 MPV 8.5 Neut % (Auto) 86.3 H Lymph % (Auto) 6.4 L [place] % (Auto) 6.6 Eos % (Auto) 0.2 Baso % (Auto) 0.5 Neut # (Auto) 7.8 H Lymph # (Auto) 0.6 L [place] # (Auto) 0.6 Eos # (Auto) 0.0 Baso # (Auto) 0.0 Neutrophils % (Manual) 86 H Band Neutrophils % 1 Lymphocytes % (Manual) 6 L Monocytes % (Manual) 7 Platelet Estimate Normal Large Platelets Present Anisocytosis (manual) Slight Sodium 133 Potassium 4.5 Chloride 100 Carbon Dioxide 22 Anion Gap 17 BUN 9 Creatinine 0.6 L Est GFR ( Amer) > 60 Est GFR (Non-Af Amer) > 60 POC Glucose (mg/dL) 354 H Random Glucose 341 H Calcium 8.4 L Phosphorus Magnesium 1.7 Total Bilirubin 2.0 H AST 36 ALT 6 L D Alkaline Phosphatase 70 Total Creatine Kinase 396 H Troponin I NT-Pro-B Natriuret Pep Total Protein 6.6 Albumin 3.2 L Globulin 3.4 Albumin/Globulin Ratio 1.0 Triglycerides Cholesterol LDL Cholesterol Direct HDL Cholesterol Vitamin B12 25-OH Vitamin D Total Free T4 TSH 3rd Generation Urine Color Urine Clarity Urine pH Ur Specific Barton Urine Protein Urine Glucose (UA) Urine Ketones Urine Blood Urine Nitrate Urine Bilirubin Urine Urobilinogen Ur Leukocyte Esterase Urine WBC (Auto) Urine RBC (Auto) Ur Squamous Epith Cells Urine Bacteria Hyaline Casts Digoxin Urine Opiates Screen Urine Methadone Screen Ur Barbiturates Screen Ur Phencyclidine Scrn Ur Amphetamines Screen U Benzodiazepines Scrn U Oth Cocaine Metabols U Cannabinoids Screen RPR Influenza Typ A,B (EIA) 03/05/18 03/05/18 03/05/18 14:40 15:04 15:05 WBC RBC Hgb Hct MCV MCH MCHC RDW Plt Count MPV Neut % (Auto) Lymph % (Auto) [place] % (Auto) Eos % (Auto) Baso % (Auto) Neut # (Auto) Lymph # (Auto) [place] # (Auto) Eos # (Auto) Baso # (Auto) Neutrophils % (Manual) Band Neutrophils % Lymphocytes % (Manual) Monocytes % (Manual) Platelet Estimate Large Platelets Anisocytosis (manual) Sodium Potassium Chloride Carbon Dioxide Anion Gap BUN Creatinine Est GFR ( Amer) Est GFR (Non-Af Amer) POC Glucose (mg/dL) Random Glucose Calcium Phosphorus Magnesium Total Bilirubin AST ALT Alkaline Phosphatase Total Creatine Kinase Troponin I NT-Pro-B Natriuret Pep Total Protein Albumin Globulin Albumin/Globulin Ratio Triglycerides Cholesterol LDL Cholesterol Direct HDL Cholesterol Vitamin B12 25-OH Vitamin D Total < 12.8 L Free T4 1.31 TSH 3rd Generation Urine Color Yellow Urine Clarity Clear Urine pH 5.0 Ur Specific Barton 1.027 Urine Protein 3+ H Urine Glucose (UA) 3+ H Urine Ketones 1+ H Urine Blood 2+ H Urine Nitrate Negative Urine Bilirubin Negative Urine Urobilinogen Normal Ur Leukocyte Esterase Trace Urine WBC (Auto) 7 H Urine RBC (Auto) 19 H Ur Squamous Epith Cells 1 Urine Bacteria Rare Hyaline Casts 3-5 H Digoxin Urine Opiates Screen Urine Methadone Screen Ur Barbiturates Screen Ur Phencyclidine Scrn Ur Amphetamines Screen U Benzodiazepines Scrn U Oth Cocaine Metabols U Cannabinoids Screen RPR Influenza Typ A,B (EIA) 03/05/18 03/05/18 03/05/18 15:40 15:44 16:07 WBC RBC Hgb Hct MCV MCH MCHC RDW Plt Count MPV Neut % (Auto) Lymph % (Auto) [place] % (Auto) Eos % (Auto) Baso % (Auto) Neut # (Auto) Lymph # (Auto) [place] # (Auto) Eos # (Auto) Baso # (Auto) Neutrophils % (Manual) Band Neutrophils % Lymphocytes % (Manual) Monocytes % (Manual) Platelet Estimate Large Platelets Anisocytosis (manual) Sodium Potassium Chloride Carbon Dioxide Anion Gap BUN Creatinine Est GFR ( Amer) Est GFR (Non-Af Amer) POC Glucose (mg/dL) Random Glucose Calcium Phosphorus Magnesium Total Bilirubin AST ALT Alkaline Phosphatase Total Creatine Kinase Troponin I 0.0460 NT-Pro-B Natriuret Pep Total Protein Albumin Globulin Albumin/Globulin Ratio Triglycerides Cholesterol LDL Cholesterol Direct HDL Cholesterol Vitamin B12 210 L 25-OH Vitamin D Total Free T4 TSH 3rd Generation 2.22 Urine Color Urine Clarity Urine pH Ur Specific Barton Urine Protein Urine Glucose (UA) Urine Ketones Urine Blood Urine Nitrate Urine Bilirubin Urine Urobilinogen Ur Leukocyte Esterase Urine WBC (Auto) Urine RBC (Auto) Ur Squamous Epith Cells Urine Bacteria Hyaline Casts Digoxin Urine Opiates Screen Negative Urine Methadone Screen Negative Ur Barbiturates Screen Negative Ur Phencyclidine Scrn Negative Ur Amphetamines Screen Negative U Benzodiazepines Scrn Negative U Oth Cocaine Metabols Negative U Cannabinoids Screen Negative RPR Nonreactive Influenza Typ A,B (EIA) Negative for flu a/b 03/05/18 03/05/18 03/05/18 16:22 17:24 21:00 WBC RBC Hgb Hct MCV MCH MCHC RDW Plt Count MPV Neut % (Auto) Lymph % (Auto) [place] % (Auto) Eos % (Auto) Baso % (Auto) Neut # (Auto) Lymph # (Auto) [place] # (Auto) Eos # (Auto) Baso # (Auto) Neutrophils % (Manual) Band Neutrophils % Lymphocytes % (Manual) Monocytes % (Manual) Platelet Estimate Large Platelets Anisocytosis (manual) Sodium Potassium Chloride Carbon Dioxide Anion Gap BUN Creatinine Est GFR ( Amer) Est GFR (Non-Af Amer) POC Glucose (mg/dL) 316 H 435 H* Random Glucose Calcium Phosphorus Magnesium Total Bilirubin AST ALT Alkaline Phosphatase Total Creatine Kinase Troponin I NT-Pro-B Natriuret Pep 62777 H Total Protein Albumin Globulin Albumin/Globulin Ratio Triglycerides Cholesterol LDL Cholesterol Direct HDL Cholesterol Vitamin B12 25-OH Vitamin D Total Free T4 TSH 3rd Generation Urine Color Urine Clarity Urine pH Ur Specific Barton Urine Protein Urine Glucose (UA) Urine Ketones Urine Blood Urine Nitrate Urine Bilirubin Urine Urobilinogen Ur Leukocyte Esterase Urine WBC (Auto) Urine RBC (Auto) Ur Squamous Epith Cells Urine Bacteria Hyaline Casts Digoxin Urine Opiates Screen Urine Methadone Screen Ur Barbiturates Screen Ur Phencyclidine Scrn Ur Amphetamines Screen U Benzodiazepines Scrn U Oth Cocaine Metabols U Cannabinoids Screen RPR Influenza Typ A,B (EIA) 03/06/18 03/06/18 03/06/18 02:02 07:04 08:33 WBC RBC Hgb Hct MCV MCH MCHC RDW Plt Count MPV Neut % (Auto) Lymph % (Auto) [place] % (Auto) Eos % (Auto) Baso % (Auto) Neut # (Auto) Lymph # (Auto) [place] # (Auto) Eos # (Auto) Baso # (Auto) Neutrophils % (Manual) Band Neutrophils % Lymphocytes % (Manual) Monocytes % (Manual) Platelet Estimate Large Platelets Anisocytosis (manual) Sodium 139 Potassium 3.0 L Chloride 102 Carbon Dioxide 30 Anion Gap 10 BUN 12 Creatinine 0.8 Est GFR ( Amer) > 60 Est GFR (Non-Af Amer) > 60 POC Glucose (mg/dL) 300 H 260 H Random Glucose 221 H Calcium 8.4 L Phosphorus 3.4 Magnesium 1.7 Total Bilirubin 1.0 AST 24 ALT 22 Alkaline Phosphatase 65 Total Creatine Kinase Troponin I NT-Pro-B Natriuret Pep Total Protein 5.6 L Albumin 2.8 L Globulin 2.8 Albumin/Globulin Ratio 1.0 Triglycerides 112 Cholesterol 119 LDL Cholesterol Direct 64 HDL Cholesterol 47 Vitamin B12 25-OH Vitamin D Total Free T4 TSH 3rd Generation Urine Color Urine Clarity Urine pH Ur Specific [place] Urine Protein Urine Glucose (UA) Urine Ketones Urine Blood Urine Nitrate Urine Bilirubin Urine Urobilinogen Ur Leukocyte Esterase Urine WBC (Auto) Urine RBC (Auto) Ur Squamous Epith Cells Urine Bacteria Hyaline Casts Digoxin Urine Opiates Screen Urine Methadone Screen Ur Barbiturates Screen Ur Phencyclidine Scrn Ur Amphetamines Screen U Benzodiazepines Scrn U Oth Cocaine Metabols U Cannabinoids Screen RPR Influenza Typ A,B (EIA) 03/06/18 03/06/18 03/06/18 08:33 08:33 11:23 WBC 7.0 RBC 4.98 Hgb 14.0 Hct 42.5 MCV 85.3 MCH 28.1 MCHC 32.9 L RDW 14.6 H Plt Count 192 MPV 8.4 Neut % (Auto) 72.9 Lymph % (Auto) 14.8 L [place] % (Auto) 9.3 Eos % (Auto) 2.2 Baso % (Auto) 0.8 Neut # (Auto) 5.1 Lymph # (Auto) 1.0 [place] # (Auto) 0.7 Eos # (Auto) 0.2 Baso # (Auto) 0.1 Neutrophils % (Manual) Band Neutrophils % Lymphocytes % (Manual) Monocytes % (Manual) Platelet Estimate Large Platelets Anisocytosis (manual) Sodium Potassium Chloride Carbon Dioxide Anion Gap BUN Creatinine Est GFR ( Amer) Est GFR (Non-Af Amer) POC Glucose (mg/dL) 268 H Random Glucose Calcium Phosphorus Magnesium Total Bilirubin AST ALT Alkaline Phosphatase Total Creatine Kinase Troponin I NT-Pro-B Natriuret Pep Total Protein Albumin Globulin Albumin/Globulin Ratio Triglycerides Cholesterol LDL Cholesterol Direct HDL Cholesterol Vitamin B12 25-OH Vitamin D Total Free T4 TSH 3rd Generation Urine Color Urine Clarity Urine pH Ur Specific [place] Urine Protein Urine Glucose (UA) Urine Ketones Urine Blood Urine Nitrate Urine Bilirubin Urine Urobilinogen Ur Leukocyte Esterase Urine WBC (Auto) Urine RBC (Auto) Ur Squamous Epith Cells Urine Bacteria Hyaline Casts Digoxin < 0.4 L Urine Opiates Screen Urine Methadone Screen Ur Barbiturates Screen Ur Phencyclidine Scrn Ur Amphetamines Screen U Benzodiazepines Scrn U Oth Cocaine Metabols U Cannabinoids Screen RPR Influenza Typ A,B (EIA) Assessment & Plan - Assessment and Plan (Free Text) Assessment: 62 year old male Patient Seen and evaluated at the bedside for redness, swelling and skin breaks and ulcerations of the b/l LE. Plan: Patient seen and evaluated at the Bedside with Dr. Sarmiento Plan discussed in details with attending Dr. Sarmiento Charts, labs and vitals reviewed; afebrile, WBCs 7.0 Ordered b/l Tib-fibula X-ray Ordered SHAY/PVR LE Ordred B/L venous duplex Ordered multipodus boots. Patient to wear the multipodus boots all the times while in bed R leg dressed using xeroform, ABD and DSD Ordered Medihoney to be added to the daily dressing change. Podiatry will continue to follow up while patient is in house - Date & Time Date: 03/06/18 Time: 12:15 <Crow Sarmiento - Last Filed: 03/06/18 23:09> Meds - Medications Medications: Current Medications Aspirin (Aspirin Chewable) 81 mg PO DAILY [facility] Last Admin: 03/06/18 16:19 Dose: 81 mg Carvedilol (Coreg) 3.125 mg PO BID [facility] Last Admin: 03/06/18 17:59 Dose: 3.125 mg Dextrose (Dextrose 50% Inj) 0 ml IV STAT PRN; Protocol PRN Reason: Hypoglycemia Protocol Dextrose (Glutose 15) 0 gm PO ONCE PRN; Protocol PRN Reason: Hypoglycemia Protocol Docusate Sodium (Colace) 100 mg PO BID [facility] Last Admin: 03/06/18 17:59 Dose: 100 mg Ergocalciferol (Drisdol 50,000 Intl Units Cap) 1 cap PO Q7D [facility] Stop: 19 14:00 Last Admin: 03/06/18 14:19 Dose: 1 cap Furosemide (Lasix) 20 mg IVP Q12H [facility] Last Admin: 03/06/18 16:18 Dose: 20 mg Glucagon (Glucagen Diagnostic Kit) 0 mg IM STAT PRN; Protocol PRN Reason: Hypoglycemia Protocol Heparin Sodium (Porcine) (Heparin) 5,000 units SC Q8 [facility] Last Admin: 03/06/18 21:29 Dose: 5,000 units Dextrose (Dextrose 5% In Water 1000 Ml) 1,000 mls @ 0 mls/hr IV .Q0M PRN; Protocol PRN Reason: Hypoglycemia Protocol Ceftriaxone Sodium 1 gm/ (Sodium Chloride) 100 mls @ 100 mls/hr IVPB DAILY [facility]; Protocol Last Admin: 03/06/18 09:52 Dose: 100 mls/hr Insulin Glargine (Lantus) 26 unit SC HS [facility] Last Admin: 03/06/18 21:30 Dose: 26 units Insulin Human Regular (Novolin R) 0 unit SC ACHS [facility]; Protocol Last Admin: 03/06/18 21:29 Dose: 2 units Lactic Acid (Lac-Hydrin 12% Lotion (225 G)) 0 gm EXT BID [facility] Stop: 03/20/18 16:00 Last Admin: 03/06/18 18:07 Dose: Not Given Lactobacillus Acidophilus (Bacid Acidophilus) 1 cap PO BID [facility] Last Admin: 03/06/18 17:59 Dose: 1 cap Lisinopril (Zestril) 10 mg PO DAILY [facility] Last Admin: 03/06/18 09:54 Dose: 10 mg Morphine Sulfate (Morphine) 0.5 mg IVP Q6 PRN PRN Reason: Pain, moderate (4-7) Morphine Sulfate (Morphine) 1 mg IVP Q6 PRN PRN Reason: Pain, severe (8-10) Nystatin (Nystop Topical Powder) 1 applic TOP BID [facility] Stop: 03/20/18 18:00 Last Admin: 03/06/18 18:00 Dose: 1 applic Pneumococcal Polyvalent Vaccine (Pneumovax 23 Vaccine) 0.5 ml IM .ONCE ONE Stop: 03/08/18 10:01 Potassium Chloride (K-Dur 20 Meq Er Tab) 20 meq PO ONCE ONE Stop: 03/07/18 08:01 Rosuvastatin Calcium (Crestor) 2.[address] [facility] Last Admin: 03/06/18 21:30 Dose: 2.5 mg Results - Vital Signs Recent Vital Signs: Last Vital Signs Temp 99.3 F 03/06/18 15:00 Pulse 92 H 03/06/18 18:00 Resp 18 03/06/18 15:00 BP 159/75 H 03/06/18 16:18 Pulse Ox 98 03/06/18 15:00 - Labs Result Diagrams: 03/06/18 08:33 03/06/18 08:33 Labs: Laboratory Results - last 24 hr 03/06/18 03/06/18 03/06/18 02:02 07:04 08:33 WBC RBC Hgb Hct MCV MCH MCHC RDW Plt Count MPV Neut % (Auto) Lymph % (Auto) [place] % (Auto) Eos % (Auto) Baso % (Auto) Neut # (Auto) Lymph # (Auto) [place] # (Auto) Eos # (Auto) Baso # (Auto) Sodium 139 Potassium 3.0 L Chloride 102 Carbon Dioxide 30 Anion Gap 10 BUN 12 Creatinine 0.8 Est GFR ( Amer) > 60 Est GFR (Non-Af Amer) > 60 POC Glucose (mg/dL) 300 H 260 H Random Glucose 221 H Hemoglobin A1c Calcium 8.4 L Phosphorus 3.4 Magnesium 1.7 Total Bilirubin 1.0 AST 24 ALT 22 Alkaline Phosphatase 65 Total Protein 5.6 L Albumin 2.8 L Globulin 2.8 Albumin/Globulin Ratio 1.0 Triglycerides 112 Cholesterol 119 LDL Cholesterol Direct 64 HDL Cholesterol 47 Digoxin 03/06/18 03/06/18 03/06/18 08:33 08:33 08:33 WBC 7.0 RBC 4.98 Hgb 14.0 Hct 42.5 MCV 85.3 MCH 28.1 MCHC 32.9 L RDW 14.6 H Plt Count 192 MPV 8.4 Neut % (Auto) 72.9 Lymph % (Auto) 14.8 L [place] % (Auto) 9.3 Eos % (Auto) 2.2 Baso % (Auto) 0.8 Neut # (Auto) 5.1 Lymph # (Auto) 1.0 [place] # (Auto) 0.7 Eos # (Auto) 0.2 Baso # (Auto) 0.1 Sodium Potassium Chloride Carbon Dioxide Anion Gap BUN Creatinine Est GFR ( Amer) Est GFR (Non-Af Amer) POC Glucose (mg/dL) Random Glucose Hemoglobin A1c 12.7 H Calcium Phosphorus Magnesium Total Bilirubin AST ALT Alkaline Phosphatase Total Protein Albumin Globulin Albumin/Globulin Ratio Triglycerides Cholesterol LDL Cholesterol Direct HDL Cholesterol Digoxin < 0.4 L 03/06/18 03/06/18 03/06/18 11:23 16:04 21:22 WBC RBC Hgb Hct MCV MCH MCHC RDW Plt Count MPV Neut % (Auto) Lymph % (Auto) [place] % (Auto) Eos % (Auto) Baso % (Auto) Neut # (Auto) Lymph # (Auto) [place] # (Auto) Eos # (Auto) Baso # (Auto) Sodium Potassium Chloride Carbon Dioxide Anion Gap BUN Creatinine Est GFR ( Amer) Est GFR (Non-Af Amer) POC Glucose (mg/dL) 268 H 277 H 331 H Random Glucose Hemoglobin A1c Calcium Phosphorus Magnesium Total Bilirubin AST ALT Alkaline Phosphatase Total Protein Albumin Globulin Albumin/Globulin Ratio Triglycerides Cholesterol LDL Cholesterol Direct HDL Cholesterol Digoxin Assessment & Plan - Assessment and Plan (Free Text) Plan: suzette with above findings . Medihoney dressings to wounds right lower legs for autolytic debridement . We will follow /Dr Huong Sarmiento
[2018-03-06] MEDS ORDERED: Ergocalciferol 50,000 Intl Units Cap PO SCH (14:00)
--- NOTE | 2018-03-06 16:45 | RAD ---
Date of service: 03/06/2018 PROCEDURE: Radiographs of the bilateral Tibiae and Fibulae. HISTORY: B/L LE edema and erythema COMPARISON: Comparison is made with prior study dated 11/27/2013 TECHNIQUE: Frontal and lateral views obtained. FINDINGS: BONES: RIGHT TIBIA: No fracture or destructive lesion. LEFT TIBIA: No fracture or destructive lesion. JOINT SPACES: RIGHT TIBIA: Moderate osteoarthritic changes. LEFT TIBIA: Moderate osteoarthritic changes. SOFT TISSUES: RIGHT TIBIA: Diffuse soft tissue edema. No evidence of pneumatosis in soft tissue. LEFT TIBIA: Diffuse soft tissue edema without evidence of pneumatosis. OTHER FINDINGS: Vascular calcification noted. IMPRESSION: No evidence of osteomyelitis or acute fracture. Moderate osteoarthritic changes . Diffuse moderate soft tissue edema.
[2018-03-06] MEDS: Ammonium Lactate 12% Lotion (225 g) EXT SCH (18:07)
[2018-03-06] MEDS: Potassium Chloride 20 mEq/15 ml LIQ UD PO SCH ×2 (18:21→20:45)
--- NOTE | 2018-03-06 20:09 | CP.PCM.PCO ---
Physician Communication Note - Physician Communication Note Physician Communication Note: Please see above
[2018-03-06] MEDS: Rosuvastatin Calcium 2.5 mg Tab PO SCH (21:30)
[2018-03-06] MEDS ORDERED: (Lantus) Insulin Glargine, Recombinant SC SCH (22:00)
--- NOTE | 2018-03-07 00:01 | CON ---
DATE: 03/06/2018 CARDIOLOGY CONSULTATION REASON FOR CONSULTATION: Abnormal EKG and status post fall. HISTORY OF PRESENT ILLNESS: The patient is 62-year-old male who has a history of hypertension and diabetes mellitus who was admitted because of a fall. The patient stated that on Wednesday heel edge inker machine around 2 a.m. when he was leaving his bed to go to the bathroom, he collapsed on the floor. Denies any dizziness or loss of consciousness; however, the patient was not able to stand up and remained on the floor for more than 24 hours until the route service manager was able to access the apartment and EMS was activated. The patient denies any prior similar fall scenario. The patient was referred by his PMD to the jordan worker whom the patient does not recall his name and does not recall any specific cardiac workup was performed and denies any history of heart attack or coronary intervention. The patient denies any history of stroke in the past. SOCIAL HISTORY: Nonsmoker, nondrinker. He lives by himself. His food is being delivered to him at home. The patient does the cooking and the preparation of his food for himself. CURRENT MEDICATIONS: Rocephin 1 g intravenously daily, Zestril 10 mg once a day, Lasix 20 mg intravenous twice a day, Bacid acidophilus one capsule twice a day. REVIEW OF SYSTEMS: No recent vomiting or diarrhea. No palpitation. No retrosternal chest pain. PHYSICAL EXAMINATION: GENERAL: The patient is a middle-aged male who does not appear to be in any distress. VITAL SIGNS: Blood pressure 158/75, heart rate 80, temperature 98.9, respirations 10. HEENT: Normocephalic. CHEST: Diminished breath sounds over the bases. HEART: S1 and S2, regular. ABDOMEN: Soft. EXTREMITIES: No edema. LABORATORY DATA: Today's hemoglobin and hematocrit are 14 and 42.5, white count and platelet count are within normal limits. Today's SMA-7: Sodium 139, potassium 3, chloride 102, CO2 of 30, glucose 221, BUN 12, creatinine 0.8. ProBNP is 12,000. Urinalysis revealed large rbc's and large wbc's with hyaline casts. Drug screen is negative. Digoxin less than 0.04. RPR is nonreactive and influenza type A and B serology is negative. Head CT scan without contrast, no acute findings. Chest x-ray revealed cardiomegaly with mild CHF, possible right lower lobe and middle lobe infiltrates. Knee x-ray, advanced tricompartmental osteoarthritis of the bilateral knees; no acute fracture. Hip and pelvis x-ray revealed impacted fracture of the left femoral neck without dislocation, diffuse osteopenia. Head CT scan without contrast, findings are suspicious of old impacted left femoral neck fracture, no definite CT evidence of acute fracture, [id number] left hip osteoarthritis. EKG reveals junctional rhythm with PVCs at the rate of 98 with nonspecific T-wave changes. The patient is currently in sinus rhythm on the monitor. ASSESSMENT: 1. Status post fall and impacted left femoral neck fracture, acute versus chronic. 2. Consider paroxysmal junctional tachycardia versus paroxysmal atrial fibrillation with regularization. 3. Congestive heart failure. 4. Hypokalemia. 5. Uncontrolled diabetes mellitus. RECOMMENDATIONS: I did review the most recent echo which was performed about a month ago which revealed ejection fraction in the range of 35% to 40%. In view of that, continue Lasix 20 mg intravenous twice a day and Zestril 10 mg once a day. Start Coreg at 3.125 mg twice a day. Repeat 12-lead EKG. Continue subcutaneous heparin 5000 units every 8 hours. I did review the TSH level and it is within normal limit. Mirza Omalley MD
[2018-03-07 07:47] LABS: BASO # 0.1 K/uL (0.0-0.2); BASO % 0.9 % (0.0-2.0); EOS # 0.2 K/uL (0.0-0.7); EOS % 3.6 % (0.0-4.0); HEMOGLOBIN 14.1 g/dL (12.0-18.0); LYMPH # 1.1 K/uL (1.0-4.3); LYMPH % 18.8 % (20.0-40.0); MEAN CELL VOLUME 86.5 fL (80.0-94.0); MEAN CORPUSCULAR HEMOGLOBIN 28.7 pg (27.0-31.0); MEAN CORPUSCULAR HGB CONC 33.2 g/dL (33.0-37.0); MEAN PLATELET VOLUME 8.3 fL (7.2-11.7); MONO # 0.6 K/uL (0.0-0.8); MONO % 9.5 % (0.0-10.0); NEUT # 3.9 K/uL (1.8-7.0); NEUT % 67.2 % (50.0-75.0); NRBC % 0.1 % (0.0-2.0); RBC 4.91 Mil/uL (4.40-5.90); RED CELL DISTRIBUTION WIDTH 14.9 % (11.5-14.5); WHITE BLOOD COUNT 5.8 K/uL (4.8-10.8)
[2018-03-07] MEDS ORDERED: Potassium Chloride 20 mEq ER Tab PO ONE (08:00)
[2018-03-07 08:26] LABS: ALB/GLOB RATIO 0.9 (1.0-2.1); ALBUMIN 2.8 g/dL (3.5-5.0); ALT/SGPT 21 U/L (21-72); AST/SGOT 24 U/L (17-59); BLOOD UREA NITROGEN 15 mg/dL (9-20); CALCIUM 8.3 mg/dl (8.6-10.4); GFR NON-AFRICAN AMERICAN > 60
[2018-03-07] MEDS: (Novolin R) Insulin Human Regular 100 units/ml vial SC SCH ×4 (08:43→22:34)
--- NOTE | 2018-03-07 09:50 | CP.PCM.PN ---
<Chris Becker - Last Filed: 03/07/18 18:11> Subjective - Date & Time of Evaluation Date of Evaluation: 03/07/18 Time of Evaluation: 09:49 - Subjective Subjective: PGY-1 Medicine Progress Note for Dr. Reagan Patient seen and examined at bedside this AM, in no acute distress. No acute overnight events reported. Patient endorses two recent falls, denies any head trauma or LOC. Unaware of chronic L leg fracture until made known during hospital course, cannot recall old falls. Denies any pain at this time. He primarily uses a cane to ambulate when outside, but does not use anything while at home. Endorses some tingling in his feet b/l. No fevers/chills, headaches, dizziness, chest pain, palpitations, SOB, cough, abdominal pain, n/v/d/c, dysuria, or changes in stool. Objective - Vital Signs/Intake and Output Vital Signs (last 24 hours): Temp Pulse Resp BP Pulse Ox 98.9 F 82 20 163/104 H 99 03/07/18 07:20 03/07/18 08:39 03/07/18 07:20 03/07/18 07:20 03/07/18 07:20 Intake and Output: 03/07/18 03/07/18 06:59 18:59 Output Total 930 Balance -930 - Medications Medications: Current Medications Aspirin (Aspirin Chewable) 81 mg PO DAILY [facility] Last Admin: 03/06/18 16:19 Dose: 81 mg Carvedilol (Coreg) 3.125 mg PO BID [facility] Last Admin: 03/06/18 17:59 Dose: 3.125 mg Dextrose (Dextrose 50% Inj) 0 ml IV STAT PRN; Protocol PRN Reason: Hypoglycemia Protocol Dextrose (Glutose 15) 0 gm PO ONCE PRN; Protocol PRN Reason: Hypoglycemia Protocol Docusate Sodium (Colace) 100 mg PO BID [facility] Last Admin: 03/06/18 17:59 Dose: 100 mg Ergocalciferol (Drisdol 50,000 Intl Units Cap) 1 cap PO Q7D [facility] Stop: 04/24/18 14:00 Last Admin: 03/06/18 14:19 Dose: 1 cap Furosemide (Lasix) 20 mg IVP Q12H [facility] Last Admin: 03/07/18 04:55 Dose: 20 mg Glucagon (Glucagen Diagnostic Kit) 0 mg IM STAT PRN; Protocol PRN Reason: Hypoglycemia Protocol Heparin Sodium (Porcine) (Heparin) 5,000 units SC Q8 [facility] Last Admin: 03/07/18 05:48 Dose: 5,000 units Dextrose (Dextrose 5% In Water 1000 Ml) 1,000 mls @ 0 mls/hr IV .Q0M PRN; Protocol PRN Reason: Hypoglycemia Protocol Ceftriaxone Sodium 1 gm/ (Sodium Chloride) 100 mls @ 100 mls/hr IVPB DAILY [facility]; Protocol Last Admin: 03/06/18 09:52 Dose: 100 mls/hr Insulin Glargine (Lantus) 26 unit SC HS [facility] Last Admin: 03/06/18 21:30 Dose: 26 units Insulin Human Regular (Novolin R) 0 unit SC ACHS [facility]; Protocol Last Admin: 03/07/18 08:43 Dose: 8 units Lactic Acid (Lac-Hydrin 12% Lotion (225 G)) 0 gm EXT BID [facility] Stop: 03/20/18 16:00 Last Admin: 03/06/18 18:07 Dose: Not Given Lactobacillus Acidophilus (Bacid Acidophilus) 1 cap PO BID [facility] Last Admin: 03/06/18 17:59 Dose: 1 cap Lisinopril (Zestril) 10 mg PO DAILY [facility] Last Admin: 03/06/18 09:54 Dose: 10 mg Morphine Sulfate (Morphine) 0.5 mg IVP Q6 PRN PRN Reason: Pain, moderate (4-7) Morphine Sulfate (Morphine) 1 mg IVP Q6 PRN PRN Reason: Pain, severe (8-10) Nystatin (Nystop Topical Powder) 1 applic TOP BID [facility] Stop: 03/20/18 18:00 Last Admin: 03/06/18 18:00 Dose: 1 applic Pneumococcal Polyvalent Vaccine (Pneumovax 23 Vaccine) 0.5 ml IM .ONCE ONE Stop: 03/08/18 10:01 Rosuvastatin Calcium (Crestor) 2.5 mg PO [facility] Last Admin: 03/06/18 21:30 Dose: 2.5 mg - Labs Labs: 03/07/18 07:30 03/07/18 07:30 - Constitutional Appears: Non-toxic, No Acute Distress, Other (obese) - Head Exam Head Exam: ATRAUMATIC, NORMAL INSPECTION, NORMOCEPHALIC - Eye Exam Eye Exam: EOMI, Normal appearance - ENT Exam ENT Exam: Mucous Membranes Moist, Normal Exam - Neck Exam Neck Exam: Full ROM, Normal Inspection - Respiratory Exam Respiratory Exam: Clear to Ausculation Bilateral, NORMAL BREATHING PATTERN. absent: Accessory Muscle Use, Rales, Rhonchi, Wheezes, Respiratory Distress, Stridor - Cardiovascular Exam Cardiovascular Exam: REGULAR RHYTHM, +S1, +S2 - Exam Exam: Scrotal Swelling Additional comments: Erythema to scrotum and inguinal folds, nystatin powder applied. Penile r etraction with rowley draining clear yellow urine. - Extremities Exam Additional comments: B/L LE from knees down 2+ pitting edema. Redness improved. Non tender to palpation. Much of excess skin/fungal growth cleaned from distal 1/3 of leg to toes, healthy intact skin now visible. RLE ulcers cleaned with ointment applied. Toes, thick and discolored. - Neurological Exam Neurological Exam: Alert, Awake, CN II-XII Intact, Oriented x3 - Psychiatric Exam Psychiatric exam: Normal Affect, Normal Mood - Skin Skin Exam: Dry, Warm Additional comments: LE ulcers and growths as noted above erythema to scrotum and inguinal folds, nystatin powder applied. Assessment and Plan - Assessment and Plan (Free Text) Assessment: 62 year old M with PMHx of HTN, DM type II presenting s/p 2 falls. Denies LOC or head trauma. No acute fractures noted but has chronic L femoral neck fracture. Denies previous history of falls or syncopal events. 2+ pitting edema in legs bilaterally. Being evaluated for LE lymphedema/venous insufficiency Also endorses tingling sensation to dorsum of feet bilaterally. Plan: Congestive heart failure -abnormal EKG w/ PVCs and ST/T wave abnormalities -BNP 12,000 -CXR: cardiomegaly -head of bed @45 degrees -daily weights, I/O -Cardiology recs (Dr. Omalley appreciated) -ECHO (03/07): EF 30%, LV systolic function is severely impaired. Moderate dilatation of all chambers. Grade 1 diastolic dysfunction-pseudonormal filling dynamics. RV systolic function moderately reduced. Mild tricuspid regurgitation. RV systolic pressure 30-40 mmHg suggestive of mild pulmonary HTN. Dilated IVC with poor inspiration collapse consistent with elevated RA pressure. Trace pericardial effusion. -Lasix 20 mg IVP BID -Lisinopril 10 mg PO Daily -Coreg 3.125 mg PO BID LE edema, likely 2/2 chronic venous insufficiency vs CHF -SCD contraindication -wound care on board -lac-hydrin to dorsum and heels b/l BID x7 days -d/c on 03/13 -LE duplex (03/06): -no evidence of deep or superficial vein thrombosis of b/l LE -mild valvular incompetence noted of the L great saphenous vein -f/u LE ABIs, r/o PAD -Wound care on board -Podiatry recs (Dr. Sarmiento) appreciated -R leg dressing changes using xeroform, ABD, and DSD -Medihoney to be added to daily dressing change -pt to wear multipodus boot at all times while in bead s/p fall, 2/2 LE weakness/paresthesias, new onset HF -fall risk protocol -head CT, knee x-rays, hip x-ray negative for acute fracture. Left fem neck fracture-old LE ulcers, stage 2 and unstageable -lasix -wound care Fungal infection, B/L inguinal, scrotal, intergluteal cleft -topical nystatin BID [id number] -rowley for penile retraction, rowley care w/ betadine TID DM2, uncontrolled -A1C 12.7 -ISS high dose -Increased Lantus to 30 units HS (03/07) -Added Novolog 10 units ACBL (03/07) -hypoglycemia protocol -lipid panel WNL, low dose crestor on board Poor hygeine, difficulty caring for self-pt agreed -caseworker/social eval -PT eval, likely to OMI HTN -continue to monitor -Lasix 20 mg IVP BID -Lisinopril 10 mg PO Daily -Coreg 3.125 mg PO BID Possible UTI -Urine Cx (03/05): no growth -Wound Cx (03/06): prelim gram positive cocci -Rocephin 1gm IV daily PPx, Diet, Disposition -DVT ppx: SCD contraindication; heparin 5000 units q8h -GI ppx: lactobacillus -Diet: Heart healthy, low salt Case discussed with Dr. Tez Becker DO, PGY-1 <Syd Reagan - Last Filed: 03/08/18 18:04> Objective - Vital Signs/Intake and Output Vital Signs (last 24 hours): Temp Pulse Resp BP Pulse Ox 98.3 F 81 20 144/94 H 95 03/08/18 15:00 03/08/18 16:38 03/08/18 15:00 03/08/18 17:26 03/08/18 15:00 Intake and Output: 03/08/18 03/08/18 06:59 18:59 Output Total 850 Balance -850 - Medications Medications: Current Medications Aspirin (Aspirin Chewable) 81 mg PO DAILY [facility] Last Admin: 03/08/18 09:28 Dose: 81 mg Calcium/Vitamin D (Oyster Shell Calcium/Vitamin D 500 Mg-200 Iu) 1 tab PO DAILY [facility] Last Admin: 03/08/18 13:06 Dose: 1 tab Carvedilol (Coreg) 3.125 mg PO BID [facility] Last Admin: 03/08/18 17:26 Dose: 3.125 mg Dextrose (Dextrose 50% Inj) 0 ml IV STAT PRN; Protocol PRN Reason: Hypoglycemia Protocol Dextrose (Glutose 15) 0 gm PO ONCE PRN; Protocol PRN Reason: Hypoglycemia Protocol Docusate Sodium (Colace) 100 mg PO BID [facility] Last Admin: 03/08/18 17:26 Dose: 100 mg Ergocalciferol (Drisdol 50,000 Intl Units Cap) 1 cap PO Q7D [facility] Stop: 04/24/18 14:00 Last Admin: 03/06/18 14:19 Dose: 1 cap Furosemide (Lasix) 20 mg IVP Q12H [facility] Last Admin: 18 17:26 Dose: 20 mg Glucagon (Glucagen Diagnostic Kit) 0 mg IM STAT PRN; Protocol PRN Reason: Hypoglycemia Protocol Heparin Sodium (Porcine) (Heparin) 5,000 units SC Q8 [facility] Last Admin: 03/08/18 13:05 Dose: 5,000 units Dextrose (Dextrose 5% In Water 1000 Ml) 1,000 mls @ 0 mls/hr IV .Q0M PRN; Protocol PRN Reason: Hypoglycemia Protocol Ceftriaxone Sodium 1 gm/ (Sodium Chloride) 100 mls @ 100 mls/hr IVPB DAILY [facility]; Protocol Last Admin: 03/08/18 09:28 Dose: 100 mls/hr Insulin Aspart (Novolog) 10 unit SC ACBL [facility] Last Admin: 03/08/18 13:06 Dose: 10 units Insulin Glargine (Lantus) 30 unit SC HS [facility] Last Admin: 03/07/18 22:33 Dose: 30 unit Insulin Human Regular (Novolin R) 0 unit SC ACHS [facility]; Protocol Last Admin: 03/08/18 17:27 Dose: 2 units Lactic Acid (Lac-Hydrin 12% Lotion (225 G)) 0 gm EXT BID [facility] Stop: 03/20/18 16:00 Last Admin: 03/08/18 17:32 Dose: 1 applic Lactobacillus Acidophilus (Bacid Acidophilus) 1 cap PO BID [facility] Last Admin: 03/08/18 17:26 Dose: 1 cap Lisinopril (Zestril) 10 mg PO DAILY [facility] Last Admin: 03/08/18 09:28 Dose: 10 mg Morphine Sulfate (Morphine) 0.5 mg IVP Q6 PRN PRN Reason: Pain, moderate (4-7) Morphine Sulfate (Morphine) 1 mg IVP Q6 PRN PRN Reason: Pain, severe (8-10) Nystatin (Nystop Topical Powder) 1 applic TOP BID [facility] Stop: 03/20/18 18:00 Last Admin: 03/08/18 17:32 Dose: 1 applic Rosuvastatin Calcium (Crestor) 2.5 mg PO [facility] Last Admin: 03/07/18 22:55 Dose: 2.5 mg - Labs Labs: 03/08/18 07:56 03/08/18 07:56 PT 12.0 SECONDS (9.7-12.2) 03/08/18 07:56 INR 1.1 03/08/18 07:56 Attending/Attestation - Attestation I have personally seen and examined this patient.: Yes I have fully participated in the care of the patient.: Yes I have reviewed all pertinent clinical information, including history, physical exam and plan: Yes Notes (Text): Patient has no complain. discussed about medication and follow up compliance.Discussed about sugar control and insulin patient's edema is improving. Likey due to chronic systolic heart failure and noncompliance with medication and follow ups. Has a manager creative services out patient but he was not following d/w Dr Bullock. He will talk to him again tomorrow. Plan discussed with the resident patient will be discharge to rehab once ready seen by ortho . NO plan for surgical intervention
--- NOTE | 2018-03-07 10:20 | CP.PCM.CON ---
History of Present Illness - History of Present Illness History of Present Illness: Orthopedic consultation Dr. Smith 62M complains of no pain at this time. He says that he had a few recent falls, but no pain at this time. He says he walks with a cane outside, but doesn't use anything at home. He lives in elevator building. He has no known history of left hip injury or fracture. He denies any current or previous left hip or groin pain. Denies CP/SOB/dizzines/n/v. admits to tingling in feet. Review of Systems - Review of Systems All systems: reviewed and no additional remarkable complaints except - Cardiovascular Cardiovascular: As Per HPI - Respiratory Respiratory: As Per HPI - Gastrointestinal Gastrointestinal: As Per HPI - Musculoskeletal Musculoskeletal: As Per HPI - Neurological Neurological: As Per HPI - Hematologic/Lymphatic Hematologic: absent: As Per HPI, Easy Bleeding, Easy Bruising, Lymphadenopathy, Other Past Patient History - Past Medical History & Family History Past Medical History?: Yes Past Family History: Reviewed and not pertinent - Past Social History Smoking Status: Never Smoked - CARDIAC Hx Hypertension: Yes - PULMONARY Hx Respiratory Disorders: No - NEUROLOGICAL Hx Neurological Disorder: No - HEENT Hx HEENT Problems: No - RENAL Hx Chronic Kidney Disease: No - ENDOCRINE/METABOLIC Hx Diabetes Mellitus Type 2: Yes - HEMATOLOGICAL/ONCOLOGICAL Hx Blood Disorders: No - INTEGUMENTARY Hx Dermatological Problems: No - MUSCULOSKELETAL/RHEUMATOLOGICAL Hx Musculoskeletal Disorders: No Hx Falls: Yes (fell at home, close to the nursing station) - GASTROINTESTINAL Hx Gastrointestinal Disorders: No - GENITOURINARY/GYNECOLOGICAL Hx Genitourinary Disorders: No - PSYCHIATRIC Hx Substance Use: No - SURGICAL HISTORY Hx Cholecystectomy: Yes (05/2014) - ANESTHESIA Hx Anesthesia: Yes Hx Anesthesia Reactions: No Meds Allergies/Adverse Reactions: Allergies Allergy/AdvReac Type Severity Reaction Status Date / Time No Known Allergies Allergy Verified 03/05/18 12:30 - Medications Medications: Current Medications Aspirin (Aspirin Chewable) 81 mg PO DAILY [facility] Last Admin: 03/06/18 16:19 Dose: 81 mg Carvedilol (Coreg) 3.125 mg PO BID [facility] Last Admin: 03/06/18 17:59 Dose: 3.125 mg Dextrose (Dextrose 50% Inj) 0 ml IV STAT PRN; Protocol PRN Reason: Hypoglycemia Protocol Dextrose (Glutose 15) 0 gm PO ONCE PRN; Protocol PRN Reason: Hypoglycemia Protocol Docusate Sodium (Colace) 100 mg PO BID [facility] Last Admin: 03/06/18 17:59 Dose: 100 mg Ergocalciferol (Drisdol 50,000 Intl Units Cap) 1 cap PO Q7D [facility] Stop: 04/24/18 14:00 Last Admin: 03/06/18 14:19 Dose: 1 cap Furosemide (Lasix) 20 mg IVP Q12H [facility] Last Admin: 03/07/18 04:55 Dose: 20 mg Glucagon (Glucagen Diagnostic Kit) 0 mg IM STAT PRN; Protocol PRN Reason: Hypoglycemia Protocol Heparin Sodium (Porcine) (Heparin) 5,000 units SC Q8 [facility] Last Admin: 03/07/18 05:48 Dose: 5,000 units Dextrose (Dextrose 5% In Water 1000 Ml) 1,000 mls @ 0 mls/hr IV .Q0M PRN; Protocol PRN Reason: Hypoglycemia Protocol Ceftriaxone Sodium 1 gm/ (Sodium Chloride) 100 mls @ 100 mls/hr IVPB DAILY [facility]; Protocol Last Admin: 03/06/18 09:52 Dose: 100 mls/hr Insulin Glargine (Lantus) 26 unit SC HS [facility] Last Admin: 03/06/18 21:30 Dose: 26 units Insulin Human Regular (Novolin R) 0 unit SC ACHS [facility]; Protocol Last Admin: 03/07/18 08:43 Dose: 8 units Lactic Acid (Lac-Hydrin 12% Lotion (225 G)) 0 gm EXT BID [facility] Stop: 03/20/18 16:00 Last Admin: 03/06/18 18:07 Dose: Not Given Lactobacillus Acidophilus (Bacid Acidophilus) 1 cap PO BID [facility] Last Admin: 03/06/18 17:59 Dose: 1 cap Lisinopril (Zestril) 10 mg PO DAILY [facility] Last Admin: 03/06/18 09:54 Dose: 10 mg Morphine Sulfate (Morphine) 0.5 mg IVP Q6 PRN PRN Reason: Pain, moderate (4-7) Morphine Sulfate (Morphine) 1 mg IVP Q6 PRN PRN Reason: Pain, severe (8-10) Nystatin (Nystop Topical Powder) 1 applic TOP BID [facility] Stop: 03/20/18 18:00 Last Admin: 03/06/18 18:00 Dose: 1 applic Pneumococcal Polyvalent Vaccine (Pneumovax 23 Vaccine) 0.5 ml IM .ONCE ONE Stop: 03/08/18 10:01 Rosuvastatin Calcium (Crestor) 2.5 mg PO HS [facility] Last Admin: 03/06/18 21:30 Dose: 2.5 mg Physical Exam - Constitutional Appears: Well, No Acute Distress - Head Exam Head Exam: ATRAUMATIC - Neck Exam Neck exam: Positive for: Full Rom, Normal Inspection - Respiratory Exam Respiratory Exam: NORMAL BREATHING PATTERN - Cardiovascular Exam Additional comments: toes warm, +DP/PT pulses - Expanded Lower Extremities Exam Left Hip exam: full ROM Knee exam: full ROM, normal inspection Lower Leg Exam: swelling (peripheral edema and rubor, s/p toe amp, +ROM ankle/toes, decreased sensation to feet) - Neurological Exam Neurological exam: Alert, Oriented x3 - Psychiatric Exam Psychiatric exam: Normal Affect, Normal Mood - Skin Skin Exam: Dry, Intact, Normal Color, Warm Results - Vital Signs Recent Vital Signs: Last Vital Signs Temp 98.9 F 03/07/18 07:20 Pulse 82 03/07/18 08:39 Resp 20 03/07/18 07:20 BP 163/104 H 03/07/18 07:20 Pulse Ox 99 03/07/18 07:20 - Labs Result Diagrams: 03/07/18 07:30 03/07/18 07:30 Labs: Laboratory Results - last 24 hr 03/06/18 03/06/18 03/06/18 08:33 11:23 16:04 WBC RBC Hgb Hct MCV MCH MCHC RDW Plt Count MPV Neut % (Auto) Lymph % (Auto) [place] % (Auto) Eos % (Auto) Baso % (Auto) Neut # (Auto) Lymph # (Auto) [place] # (Auto) Eos # (Auto) Baso # (Auto) Sodium Potassium Chloride Carbon Dioxide Anion Gap BUN Creatinine Est GFR ( Amer) Est GFR (Non-Af Amer) POC Glucose (mg/dL) 268 H 277 H Random Glucose Hemoglobin A1c 12.7 H Calcium Total Bilirubin AST ALT Alkaline Phosphatase Total Protein Albumin Globulin Albumin/Globulin Ratio 03/06/18 03/07/18 03/07/18 21:22 02:03 06:13 WBC RBC Hgb Hct MCV MCH MCHC RDW Plt Count MPV Neut % (Auto) Lymph % (Auto) [place] % (Auto) Eos % (Auto) Baso % (Auto) Neut # (Auto) Lymph # (Auto) [place] # (Auto) Eos # (Auto) Baso # (Auto) Sodium Potassium Chloride Carbon Dioxide Anion Gap BUN Creatinine Est GFR ( Amer) Est GFR (Non-Af Amer) POC Glucose (mg/dL) 331 H 308 H 311 H Random Glucose Hemoglobin A1c Calcium Total Bilirubin AST ALT Alkaline Phosphatase Total Protein Albumin Globulin Albumin/Globulin Ratio 03/07/18 03/07/18 07:30 07:30 WBC 5.8 RBC 4.91 Hgb 14.1 Hct 42.4 MCV 86.5 MCH 28.7 MCHC 33.2 RDW 14.9 H Plt Count 196 MPV 8.3 Neut % (Auto) 67.2 Lymph % (Auto) 18.8 L [place] % (Auto) 9.5 Eos % (Auto) 3.6 Baso % (Auto) 0.9 Neut # (Auto) 3.9 Lymph # (Auto) 1.1 [place] # (Auto) 0.6 Eos # (Auto) 0.2 Baso # (Auto) 0.1 Sodium 137 Potassium 3.9 Chloride 99 Carbon Dioxide 30 Anion Gap 11 BUN 15 Creatinine 0.8 Est GFR ( Amer) > 60 Est GFR (Non-Af Amer) > 60 POC Glucose (mg/dL) Random Glucose 324 H Hemoglobin A1c Calcium 8.3 L Total Bilirubin 0.8 AST 24 ALT 21 Alkaline Phosphatase 69 Total Protein 5.9 L Albumin 2.8 L Globulin 3.1 Albumin/Globulin Ratio 0.9 L - Impressions Impression: atient Name / ID : REBECCA TORRES / [id number] Exam Date : 03/06/2018 11:12:55 ( Approved ) Study Comment : Sex / Age : M / 62Y Creator : Natalie Hernández MD Dictator : Natalie Hernández MD [employer] Technician : Clam Shucker : Natalie Hernández MD Approver2 : Report Date : 03/06/2018 16:39:17 My Comment : Date of service: 03/06/2018 PROCEDURE: Radiographs of the bilateral Tibiae and Fibulae. HISTORY: B/L LE edema and erythema COMPARISON: Comparison is made with prior study dated 11/27/2013 TECHNIQUE: Frontal and lateral views obtained. FINDINGS: BONES: RIGHT TIBIA: No fracture or destructive lesion. LEFT TIBIA: No fracture or destructive lesion. JOINT SPACES: RIGHT TIBIA: Moderate osteoarthritic changes. LEFT TIBIA: Moderate osteoarthritic changes. SOFT TISSUES: RIGHT TIBIA: Diffuse soft tissue edema. No evidence of pneumatosis in soft tissue. LEFT TIBIA: Diffuse soft tissue edema without evidence of pneumatosis. OTHER FINDINGS: Vascular calcification noted. IMPRESSION: No evidence of osteomyelitis or acute fracture. Moderate osteoarthritic changes . Diffuse moderate soft tissue edema. Patient Name / ID : REBECCA TORRES / [id number] Exam Date : 03/05/2018 19:07:05 ( Approved ) Study Comment : Sex / Age : M / 62Y Creator : Natalie Hernández MD Dictator : Natalie Hernández MD [employer] Technician : Clam Shucker : Natalie Hernández MD Approver2 : Report Date : 03/06/2018 10:37:33 My Comment : Date of service: 03/05/2018 PROCEDURE: CT of the left hip without contrast HISTORY: DEFINITION OF FRACTURE COMPARISON: Comparison is made with the previous x-ray of the left hip and pelvis dated 03/05/2018 TECHNIQUE: Axial and reformatted coronal and sagittal CT images of the left hip were obtained. Axial and reformatted CT images of the right hip and pelvis were also obtained. Total exam DLP: 1106.53 FINDINGS: There is deformity in the left femoral neck associated with callus formation and periosteal thickening suggestive of old impacted fracture with callus formation. No definite CT evidence of acute fracture. No evidence of left hip dislocation. Moderate to severe degenerative changes at the left hip noted. There is heterogeneous sclerotic and small lytic changes noted at the right femur subcapital region without definite evidence of acute fracture. [id number] right hip osteoarthritic changes are also noted. There is a Vega catheter in the bladder. Mild diffuse soft tissue edema noted. No evidence of discrete hematoma or fluid collection. IMPRESSION: Findings suspicious for old impacted left femoral neck fracture. No definite CT evidence of acute fracture. Moderate to severe left hip osteoarthritis. Preliminary report was submitted by [facility] Radiology contains concordant findings. Patient Name / ID : REBECCA TORRES / [id number] Exam Date : 03/05/2018 17:06:27 ( Approved ) Study Comment : Sex / Age : M / 62Y Creator : Dario Bell MD Dictator : Dario Bell MD [employer] Technician : Clam Shucker : Dario Bell MD Approver2 : Report Date : 03/05/2018 17:40:37 My Comment : PROCEDURE: Radiographs of the pelvis and bilateral hips HISTORY: S/p Fall COMPARISON: None. FINDINGS: BONES: There is impacted fracture of the left femoral neck with mild valgus deformity of the major distal fracture fragment. No right hip fracture identified. Diffuse osteopenia suggests osteoporosis. JOINTS: Symmetric bilateral degenerative weight-bearing cortical sclerosis and osteophyte formation are identified at the hip joints without subluxation or dislocation evident. Lesser degenerative changes are seen the bilateral sacroiliac joints. Pubic symphysis: Unremarkable. SOFT TISSUES: Vasa differentia calcifications are identified in the pelvis soft tissues. OTHER FINDINGS: None. IMPRESSION: Impacted fracture left femoral neck without dislocation. Diffuse osteopenia suggests osteoporosis. Degenerative hip greater than sacroiliac joint changes bilaterally. Patient Name / ID : REBECCA TORRES / [id number] Exam Date : 03/05/2018 16:29:33 ( Approved ) Study Comment : Sex / Age : M / 62Y Creator : Dario Bell MD Dictator : Dario Bell MD [employer] Technician : Clam Shucker : Dario Bell MD Approver2 : Report Date : 03/05/2018 17:43:05 My Comment : Date of service: 03/05/2018 PROCEDURE: Bilateral Knee Radiographs. HISTORY: S/P Fall COMPARISON: None. FINDINGS: BONES: No acute fracture or destructive bony lesion identified bilaterally. JOINTS: Advanced tricompartmental osteoarthritis appreciated manifest by joint space narrowing, articular cortical sclerosis and osteophyte development, seen worst at the bilateral medial femorotibial and patellofemoral compartments. SOFT TISSUES: Right Knee: Normal. Left Knee: Normal. JOINT EFFUSION: Small bilateral suprapatellar bursa effusions are identified with limited posterior vascular calcifications in the popliteal fossae. OTHER FINDINGS: None. IMPRESSION: Advanced tricompartmental osteoarthritis bilateral knees. No acute fracture, subluxation or dislocation. Assessment & Plan (1) Nondisplaced fracture of neck of left femur with routine healing Assessment and Plan: chronic healed left femoral neck fracture no radiographic evidence of AVN significant hip DJD patient denies pain or known history of when this fracture occurred no hip or groin pain no surgery indicated at this time, patient will follow with PT/OT eval, follow up in office for any increased pain advised patient if he develops pain due to DJD, would recommend better control of DM and improved Vit D level prior to any elective procedure as he is at increased risk of infection at this point d/w dr. Smith, agrees with above Per Dr. Smith, MRI left hip. Will follow Status: Acute
[2018-03-07] MEDS: Lactobacillus Acidophilus 500 MU Cap PO SCH ×2 (10:25→18:06)
[2018-03-07] MEDS: Ammonium Lactate 12% Lotion (225 g) EXT SCH ×2 (10:27→18:06)
--- NOTE | 2018-03-07 12:17 | VASCLAB ---
Date of service: 03/07/2018 PROCEDURE: Lower Extremity Venous Duplex Exam. HISTORY: B/L LE edema and erythema PRIORS: None. TECHNIQUE: Bilateral common femoral, femoral, popliteal and posterior tibial, peroneal and great saphenous veins were evaluated. Flow was assessed with color Doppler, compressibility, assessment of phasic flow and augmentation response. Report prepared by Oswald Beatty, JOSUE, RVT FINDINGS: RIGHT: 1. Common Femoral Vein: 1.1. Compressibility - Fully compressible: Thrombus - None : Flow - Phasic: Augmentation -Normal: Reflux - None. 2. Femoral Vein: 2.1. Compressibility - Fully compressible: Thrombus - None : Flow - Phasic: Augmentation -Normal: Reflux - None. 3. Popliteal Vein: 3.1. Compressibility - Fully compressible: Thrombus - None : Flow - Phasic: Augmentation -Normal: Reflux - None. 4. Posterior Tibial Vein: n/a 5. Peroneal Vein: n/a 6. Great Saphenous Vein: 6.1. Compressibility - Fully compressible: Thrombus - None: Flow - Phasic: Augmentation - Normal: Reflux - None. LEFT: 1. Common Femoral Vein: 1.1. Compressibility - Fully compressible: Thrombus - None: Flow - Phasic: Augmentation -Normal: Reflux - None. 2. Femoral Vein: 2.1. Compressibility - Fully compressible: Thrombus - None: Flow - Phasic: Augmentation -Normal: Reflux - None. 3. Popliteal Vein: 3.1. Compressibility - Fully compressible: Thrombus - None : Flow - Phasic: Augmentation -Normal: Reflux - None. 4. Posterior Tibial Vein: 4.1. Compressibility - Fully compressible: Thrombus - None: Flow - Phasic: Augmentation -Normal: Reflux - None. 5. Peroneal Vein: n/a 6. Great Saphenous Vein: 6.1. Compressibility - Fully compressible: Thrombus - None: Flow - Phasic: Augmentation - Normal: Reflux - Mild 2.51s OTHER FINDINGS: Limited exam of bilateral calf veins due to swelling and patient body habitus. IMPRESSION: Right: No evidence of deep or superficial vein thrombosis of the right lower extremity, for the examined veins. Normal valve function noted of the right side. Left: No evidence of deep or superficial vein thrombosis of the left lower extremity, for the examined veins. Mild valvular incompetence noted of the left great saphenous vein.
[2018-03-07] MEDS: (Novolog) Insulin Aspart, Recombinant 100 u/ml 10 ml vial SC SCH (13:14)
--- NOTE | 2018-03-07 16:39 | CARD ---
APPROVED REPORT Date of service: 03/07/2018 EXAM: Two-dimensional and M-mode echocardiogram with Doppler and color Doppler. Other Information Quality : GoodRhythm : RISK FACTORS Hypertension Diabetes 2D DIMENSIONS IVSd1.1 (0.7-1.1cm)LVDd5.4 (3.9-5.9cm) PWd1.2 (0.7-1.1cm)LA Izdiyr65 (18-58mL) LVDs4.4 (2.5-4.0cm)FS (%) 18.7 % LVEF (%)35.0 (>50%)LVEF (Mullins's)30 % M-Mode DIMENSIONS Left Atrium (MM)4.44 (2.5-4.0cm)IVSd1.16 (0.7-1.1cm) Aortic Root3.79 (2.2-3.7cm)LVDd5.99 (4.0-5.6cm) Aortic Cusp Exc.2.45 (1.5-2.0cm)PWd1.37 (0.7-1.1cm) FS (%) 19 %LVDs4.87 (2.0-3.8cm) LVEF (%)30 (>50%) Mitral Valve MV E Cgsktusc24.9cm/sMV A Zwrawlyf98.3cm/sE/A ratio1.5 TDI Lateral E' Peak V5.96cm/sMedial E' Peak V4.80cm/sE/Lateral E'12.4 E/Medial E'15.4 Tricuspid Valve TR Peak [id number]/sTR Peak Gr.[id number] LEFT VENTRICLE The Left Ventricle is moderately dilated. There is borderline concentric left ventricular hypertrophy. Left ventricle systolic function is severely impaired. The Ejection Fraction is - 30% There is global hypokinesis of the left ventricle. Transmitral Doppler flow pattern is Grade II-pseudonormal filling dynamics. RIGHT VENTRICLE The right ventricle is mildly to moderately dilated. Systolic function is moderately reduced. ATRIA The left atrium is moderately dilated. The right atrium is moderately dilated. AORTIC VALVE The aortic valve is normal in structure. No aortic regurgitation is present. There is no aortic valvular stenosis. MITRAL VALVE The mitral valve is normal in structure. There is no mitral valve regurgitation noted. TRICUSPID VALVE The tricuspid valve is normal in structure. There is mild tricuspid regurgitation. Right ventricular systolic pressure is estimated at 30-40 mmHg. There is mild pulmonary hypertension. PULMONIC VALVE The pulmonary valve is normal in structure. There is trace pulmonic valvular regurgitation. GREAT VESSELS Dilated IVC with poor inspiration collapse is consistent with elevated right atrial pressure. PERICARDIAL EFFUSION There is a trace pericardial effusion. <Conclusion> Moderate dilatation of all cardiac chambers There is borderline concentric left ventricular hypertrophy with global hypokinesis. Left ventricle systolic function is severely impaired. The Ejection Fraction is - 30% Grade I diastolic dysfunctionI-pseudonormal filling dynamics. The right ventricular systolic function is moderately reduced. There is mild tricuspid regurgitation. Right ventricular systolic pressure is estimated at 30-40 mmHg compatible with mild pulmonary hypertension. Dilated IVC with poor inspiration collapse consistent with elevated right atrial pressure. There is a trace pericardial effusion.
--- NOTE | 2018-03-07 17:52 | CARD ---
APPROVED REPORT Date of service: 03/06/2018 EKG Measurement Heart [id number] <Conclusion> Sinus rhythm with short [place] Nonspecific ST and T wave abnormality Abnormal ECG
--- NOTE | 2018-03-07 17:54 | CARD ---
APPROVED REPORT Date of service: 03/05/2018 EKG Measurement Heart [id number] <Conclusion> PROMINENT BASELINE ARTIFACT - PLEASE REPEAT Probable sinus rhythm with occasional premature ventricular complexes Nonspecific ST and T wave abnormality Abnormal ECG
--- NOTE | 2018-03-07 22:17 | PN ---
DATE: 03/07/2018 SUBJECTIVE: The patient denies any chest pain or shortness of breath at this time. OBJECTIVE: VITAL SIGNS: Blood pressure 127/82, heart rate 82, temperature 98.3, respirations 20. HEENT: Normocephalic. CHEST: Diminished breath sounds over the bases. HEART: S1, S2 regular. EXTREMITIES: 2+ pitting edema with dressings applied to the right leg. LABORATORY DATA: Hemoglobin, hematocrit, white count and platelet count are within normal limits. Today's SMA-7 is within normal limits except for glucose of 324. The patient was evaluated by career specialist Dr. Smith and impression is no evidence of acute fracture, chronic healed left femoral neck fracture and no surgery is indicated at this time. Echocardiography study revealed borderline concentric LVH with global hypokinesis, ejection fraction is measured at 30% with grade 1 diastolic dysfunction. Right ventricular systolic function is moderately reduced. ASSESSMENT: 1. Cardiomyopathy. 2. Status post a fall. 3. Healed chronic impacted left femoral neck fracture. 4. Paroxysmal junctional tachycardia. 5. Uncontrolled diabetes mellitus. RECOMMENDATIONS: Continue aspirin 81 mg once a day, Coreg 3.125 mg twice a day, Lasix 20 intravenously twice a day, Zestril 10 mg once a day. Continue IV Rocephin at 1 g daily, subcutaneous heparin 5000 units every 8 hours. The patient will definitely require cardiac catheterization to rule out underlying ischemic cardiomyopathy once he is stable. The patient did see a patient financial representative as an outpatient but does not recall his name and will be advised to follow with his patient financial representative regarding the need for cardiac catheterization. Mirza Omalley MD
[2018-03-07] MEDS: (Lantus) Insulin Glargine, Recombinant SC SCH (22:33)
[2018-03-07] MEDS: Rosuvastatin Calcium 2.5 mg Tab PO SCH (22:55)
--- NOTE | 2018-03-08 07:15 | CP.PCM.PN ---
<Chris Becker - Last Filed: 03/08/18 15:33> Subjective - Date & Time of Evaluation Date of Evaluation: 03/08/18 Time of Evaluation: 07:14 - Subjective Subjective: PGY-1 Medicine Progress Note for Dr. Reagan Patient seen and examined at bedside this AM. No acute overnight events reported. Leg swelling mildly improved, continues to endorse tingling to feet. No other acute somatic complaints. No fevers/chills, headaches, dizziness, chest pain, palpitations, SOB, cough, abdominal pain, n/v/d/c, dysuria, or changes in stool. Objective - Vital Signs/Intake and Output Vital Signs (last 24 hours): Temp Pulse Resp BP Pulse Ox 98.2 F 88 20 136/74 98 03/08/18 00:00 03/08/18 01:43 03/08/18 00:00 03/08/18 05:24 03/08/18 00:00 Intake and Output: 03/08/18 03/08/18 06:59 18:59 Output Total 850 Balance -850 - Medications Medications: Current Medications Aspirin (Aspirin Chewable) 81 mg PO DAILY [facility] Last Admin: 03/07/18 10:25 Dose: 81 mg Carvedilol (Coreg) 3.125 mg PO BID [facility] Last Admin: 03/07/18 18:06 Dose: 3.125 mg Dextrose (Dextrose 50% Inj) 0 ml IV STAT PRN; Protocol PRN Reason: Hypoglycemia Protocol Dextrose (Glutose 15) 0 gm PO ONCE PRN; Protocol PRN Reason: Hypoglycemia Protocol Docusate Sodium (Colace) 100 mg PO BID [facility] Last Admin: 03/07/18 18:06 Dose: 100 mg Ergocalciferol (Drisdol 50,000 Intl Units Cap) 1 cap PO Q7D [facility] Stop: 04/24/18 14:00 Last Admin: 03/06/18 14:19 Dose: 1 cap Furosemide (Lasix) 20 mg IVP Q12H [facility] Last Admin: 03/08/18 05:24 Dose: 20 mg Glucagon (Glucagen Diagnostic Kit) 0 mg IM STAT PRN; Protocol PRN Reason: Hypoglycemia Protocol Heparin Sodium (Porcine) (Heparin) 5,000 units SC Q8 [facility] Last Admin: 03/08/18 05:24 Dose: 5,000 units Dextrose (Dextrose 5% In Water 1000 Ml) 1,000 mls @ 0 mls/hr IV .Q0M PRN; Protocol PRN Reason: Hypoglycemia Protocol Ceftriaxone Sodium 1 gm/ (Sodium Chloride) 100 mls @ 100 mls/hr IVPB DAILY [facility]; Protocol Last Admin: 03/07/18 10:26 Dose: 100 mls/hr Insulin Aspart (Novolog) 10 unit SC ACBL [facility] Last Admin: 03/07/18 13:14 Dose: 10 units Insulin Glargine (Lantus) 30 unit SC HS [facility] Last Admin: 03/07/18 22:33 Dose: 30 unit Insulin Human Regular (Novolin R) 0 unit SC ACHS [facility]; Protocol Last Admin: 03/07/18 22:34 Dose: Not Given Lactic Acid (Lac-Hydrin 12% Lotion (225 G)) 0 gm EXT BID [facility] Stop: 03/20/18 16:00 Last Admin: 03/07/18 18:06 Dose: 1 applic Lactobacillus Acidophilus (Bacid Acidophilus) 1 cap PO BID [facility] Last Admin: 03/07/18 18:06 Dose: 1 cap Lisinopril (Zestril) 10 mg PO DAILY [facility] Last Admin: 03/07/18 10:25 Dose: 10 mg Morphine Sulfate (Morphine) 0.5 mg IVP Q6 PRN PRN Reason: Pain, moderate (4-7) Morphine Sulfate (Morphine) 1 mg IVP Q6 PRN PRN Reason: Pain, severe (8-10) Nystatin (Nystop Topical Powder) 1 applic TOP BID [facility] Stop: 03/20/18 18:00 Last Admin: 03/07/18 22:35 Dose: 1 applic Pneumococcal Polyvalent Vaccine (Pneumovax 23 Vaccine) 0.5 ml IM .ONCE ONE Stop: 03/08/18 10:01 Rosuvastatin Calcium (Crestor) 2.5 mg PO [facility] Last Admin: 03/07/18 22:55 Dose: 2.5 mg - Labs Labs: 03/07/18 07:30 03/07/18 07:30 - Constitutional Appears: Non-toxic, No Acute Distress, Unkempt, Other (obese) - Head Exam Head Exam: ATRAUMATIC, NORMAL INSPECTION, NORMOCEPHALIC - Eye Exam Eye Exam: EOMI, Normal appearance, PERRL - ENT Exam ENT Exam: Mucous Membranes Moist, Normal Exam - Neck Exam Neck Exam: Full ROM, Normal Inspection - Respiratory Exam Respiratory Exam: Clear to Ausculation Bilateral, NORMAL BREATHING PATTERN. absent: Accessory Muscle Use, Rales, Rhonchi, Wheezes, Respiratory Distress, Stridor - Cardiovascular Exam Cardiovascular Exam: REGULAR RHYTHM, +S1, +S2 - GI/Abdominal Exam GI & Abdominal Exam: Normal Bowel Sounds. absent: Distended, Firm, Guarding, Rigid, Tenderness Additional comments: morbidly obese - Exam Exam: Scrotal Swelling Additional comments: Erythema to scrotum and inguinal folds, nystatin powder applied. Penile retraction with rowley draining clear yellow urine. - Extremities Exam Additional comments: RLE dressing clean/dry/intact B/L LE from knees down 2+ pitting edema. Redness improved. Non tender to palpation. - Neurological Exam Neurological Exam: Alert, Awake, Oriented x3 - Psychiatric Exam Psychiatric exam: Flat Affect - Skin Skin Exam: Dry, Warm Assessment and Plan - Assessment and Plan (Free Text) Assessment: 62 year old M with PMHx of HTN, DM type II presenting s/p 2 falls. Denies LOC or head trauma. No acute fractures noted but has chronic L femoral neck fracture. Denies previous history of falls or syncopal events. 2+ pitting edema in legs bilaterally. Being evaluated for LE lymphedema/venous insufficiency Also endorses tingling sensation to dorsum of feet bilaterally. Plan: Congestive heart failure -abnormal EKG w/ PVCs and ST/T wave abnormalities -BNP 12,000 -CXR: cardiomegaly -head of bed @45 degrees -daily weights, I/O -ECHO (03/07): EF 30%, LV systolic function is severely impaired. Moderate dilatation of all chambers. Grade 1 diastolic dysfunction-pseudonormal filling dynamics. RV systolic function moderately reduced. Mild tricuspid regurgitation. RV systolic pressure 30-40 mmHg suggestive of mild pulmonary HTN. Dilated IVC with poor inspiration collapse consistent with elevated RA pressure. Trace pericardial effusion. -Cardiology recs (Dr. Oamlley appreciated) -patient states he has dressmaker or tailor but does not recall name -may follow up with his private dressmaker or tailor outpatient for possible cardiac cath procedure LE edema, likely 2/2 chronic venous insufficiency vs CHF -SCD contraindication -lac-hydrin to dorsum and heels b/l BID x7 days -d/c on 03/13 -LE duplex (03/06): -no evidence of deep or superficial vein thrombosis of b/l LE -mild valvular incompetence noted of the L great saphenous vein -Wound care on board -Podiatry recs (Dr. Sarmiento) appreciated -R leg dressing changes using xeroform, ABD, and DSD -Medihoney to be added to daily dressing change -pt to wear multipodus boot at all times while in bead s/p fall, 2/2 LE weakness/paresthesias, new onset HF -fall risk protocol -head CT, knee x-rays, hip x-ray negative for acute fracture. Left fem neck fracture-old LE ulcers, stage 2 and unstageable -lasix -wound care Fungal infection, B/L inguinal, scrotal, intergluteal cleft -topical nystatin BID x 14 days -rowley for penile retraction, rowley care w/ betadine TID DM2, uncontrolled -A1C 12.7 -ISS high dose -Increased Lantus to 30 units HS (03/07) -Added Novolog 10 units ACBL (03/07) -hypoglycemia protocol -lipid panel WNL, low dose crestor on board Poor hygeine, difficulty caring for self-pt agreed -behavioral health case manager/social eval -PT eval: recommend [facility] when stable for discharge -Per friend at bedside today, patient is depressed but denies. Has not left apt in 4 years, is unkempt, is medically noncompliant. Refusing to admit he is not able to ambulate. -Psych consulted (Dr. Pepper), will f/u recs prior to discharge HTN -continue to monitor -Lasix 20 mg IVP BID -Lisinopril 10 mg PO Daily -Coreg 3.125 mg PO BID Possible UTI -Urine Cx (03/05): no growth -Wound Cx (03/06): prelim gram positive cocci -Rocephin 1gm IV daily PPx, Diet, Disposition -DVT ppx: SCD contraindication; heparin 5000 units q8h -GI ppx: lactobacillus -Diet: Heart healthy, low salt -Disposition: f/u Psych recs before d/c to [facility] Case discussed with Dr. Tez Becker DO, PGY-1 <Syd Reagan - Last Filed: 03/08/18 17:12> Objective - Vital Signs/Intake and Output Vital Signs (last 24 hours): Temp Pulse Resp BP Pulse Ox 98.3 F 81 20 137/87 95 03/08/18 15:00 03/08/18 16:38 03/08/18 15:00 03/08/18 15:00 03/08/18 15:00 Intake and Output: 03/08/18 03/08/18 06:59 18:59 Output Total 850 Balance -850 - Medications Medications: Current Medications Aspirin (Aspirin Chewable) 81 mg PO DAILY [facility] Last Admin: 03/08/18 09:28 Dose: 81 mg Calcium/Vitamin D (Oyster Shell Calcium/Vitamin D 500 Mg-200 Iu) 1 tab PO DAILY [facility] Last Admin: 03/08/18 13:06 Dose: 1 tab Carvedilol (Coreg) 3.125 mg PO BID [facility] Last Admin: 03/08/18 09:28 Dose: 3.125 mg Dextrose (Dextrose 50% Inj) 0 ml IV STAT PRN; Protocol PRN Reason: Hypoglycemia Protocol Dextrose (Glutose 15) 0 gm PO ONCE PRN; Protocol PRN Reason: Hypoglycemia Protocol Docusate Sodium (Colace) 100 mg PO BID [facility] Last Admin: 03/08/18 09:28 Dose: 100 mg Ergocalciferol (Drisdol 50,000 Intl Units Cap) 1 cap PO Q7D [facility] Stop: 04/24/18 14:00 Last Admin: 03/06/18 14:19 Dose: 1 cap Furosemide (Lasix) 20 mg IVP Q12H [facility] Last Admin: 03/08/18 05:24 Dose: 20 mg Glucagon (Glucagen Diagnostic Kit) 0 mg IM STAT PRN; Protocol PRN Reason: Hypoglycemia Protocol Heparin Sodium (Porcine) (Heparin) 5,000 units SC Q8 [facility] Last Admin: 03/08/18 13:05 Dose: 5,000 units Dextrose (Dextrose 5% In Water 1000 Ml) 1,000 mls @ 0 mls/hr IV .Q0M PRN; Protocol PRN Reason: Hypoglycemia Protocol Ceftriaxone Sodium 1 gm/ (Sodium Chloride) 100 mls @ 100 mls/hr IVPB DAILY [facility]; Protocol Last Admin: 03/08/18 09:28 Dose: 100 mls/hr Insulin Aspart (Novolog) 10 unit SC ACBL [facility] Last Admin: 03/08/18 13:06 Dose: 10 units Insulin Glargine (Lantus) 30 unit SC HS [facility] Last Admin: 03/07/18 22:33 Dose: 30 unit Insulin Human Regular (Novolin R) 0 unit SC ACHS [facility]; Protocol Last Admin: 03/08/18 13:06 Dose: 8 units Lactic Acid (Lac-Hydrin 12% Lotion (225 G)) 0 gm EXT BID [facility] Stop: 03/20/18 16:00 Last Admin: 03/08/18 09:29 Dose: 1 applic Lactobacillus Acidophilus (Bacid Acidophilus) 1 cap PO BID [facility] Last Admin: 03/08/18 09:28 Dose: 1 cap Lisinopril (Zestril) 10 mg PO DAILY [facility] Last Admin: 03/08/18 09:28 Dose: 10 mg Morphine Sulfate (Morphine) 0.5 mg IVP Q6 PRN PRN Reason: Pain, moderate (4-7) Morphine Sulfate (Morphine) 1 mg IVP Q6 PRN PRN Reason: Pain, severe (8-10) Nystatin (Nystop Topical Powder) 1 applic TOP BID [facility] Stop: 03/20/18 18:00 Last Admin: 03/08/18 09:29 Dose: 1 applic Rosuvastatin Calcium (Crestor) 2.5 mg PO [facility] Last Admin: 03/07/18 22:55 Dose: 2.5 mg - Labs Labs: 03/08/18 07:56 03/08/18 07:56 PT 12.0 SECONDS (9.7-12.2) 03/08/18 07:56 INR 1.1 03/08/18 07:56 Attending/Attestation - Attestation I have personally seen and examined this patient.: Yes I have fully participated in the care of the patient.: Yes I have reviewed all pertinent clinical information, including history, physical exam and plan: Yes Notes (Text): s/p fall,obesity,chronis systolic heart failure,noncompliance with meds and follow up As per SW his friend is concern about his depression and not going out of his apartment last 4 years. we will ask psychiatris to see him As per dressmaker or tailor we will recommend out pt cardia follow up and possible cath monitor sugar on current insulin d/w resident. Agree with the documentation
[2018-03-08 08:01] LABS: BASO # 0.1 K/uL (0.0-0.2); BASO % 1.1 % (0.0-2.0); EOS # 0.2 K/uL (0.0-0.7); EOS % 4.6 % (0.0-4.0); HEMOGLOBIN 14.4 g/dL (12.0-18.0); LYMPH # 1.2 K/uL (1.0-4.3); LYMPH % 22.9 % (20.0-40.0); MEAN CELL VOLUME 86.7 fL (80.0-94.0); MEAN CORPUSCULAR HEMOGLOBIN 28.7 pg (27.0-31.0); MEAN CORPUSCULAR HGB CONC 33.1 g/dL (33.0-37.0); MEAN PLATELET VOLUME 8.1 fL (7.2-11.7); MONO # 0.5 K/uL (0.0-0.8); MONO % 9.6 % (0.0-10.0); NEUT # 3.4 K/uL (1.8-7.0); NEUT % 61.8 % (50.0-75.0); RBC 5.01 Mil/uL (4.40-5.90); RED CELL DISTRIBUTION WIDTH 14.8 % (11.5-14.5); WHITE BLOOD COUNT 5.4 K/uL (4.8-10.8)
[2018-03-08 08:07] LABS: INR 1.1
[2018-03-08 08:16] LABS: ALB/GLOB RATIO 0.9 (1.0-2.1); ALBUMIN 2.8 g/dL (3.5-5.0); ALT/SGPT 25 U/L (21-72); AST/SGOT 22 U/L (17-59); BLOOD UREA NITROGEN 17 mg/dL (9-20); CALCIUM 8.3 mg/dl (8.6-10.4); GFR NON-AFRICAN AMERICAN > 60
[2018-03-08] MEDS: (Novolog) Insulin Aspart, Recombinant 100 u/ml 10 ml vial SC SCH ×2 (08:30→13:06)
[2018-03-08] MEDS: (Novolin R) Insulin Human Regular 100 units/ml vial SC SCH ×4 (08:30→21:50)
[2018-03-08] MEDS: Lactobacillus Acidophilus 500 MU Cap PO SCH ×2 (09:28→17:26)
[2018-03-08] MEDS: Ammonium Lactate 12% Lotion (225 g) EXT SCH ×2 (09:29→17:32)
[2018-03-08] MEDS ORDERED: Pneumococcal 23-Valent Vaccine IM ONE (10:00)
--- NOTE | 2018-03-08 11:52 | CP.PCM.PN ---
Subjective - Date & Time of Evaluation Date of Evaluation: 03/08/18 Time of Evaluation: 11:50 - Subjective Subjective: Patient states he has able to walk with walker with PT. He denies any leg/hip/groin/back pain while walking. No new complaints of CP/SOB/dizziness. still with tingling of both feet. Objective - Vital Signs/Intake and Output Vital Signs (last 24 hours): Temp Pulse Resp BP Pulse Ox 98.6 F 84 20 153/97 H 95 03/08/18 08:14 03/08/18 08:14 03/08/18 08:14 03/08/18 08:14 03/08/18 08:14 Intake and Output: 03/08/18 03/08/18 06:59 18:59 Output Total 850 Balance -850 - Medications Medications: Current Medications Aspirin (Aspirin Chewable) 81 mg PO DAILY [facility] Last Admin: 03/08/18 09:28 Dose: 81 mg Carvedilol (Coreg) 3.125 mg PO BID [facility] Last Admin: 03/08/18 09:28 Dose: 3.125 mg Dextrose (Dextrose 50% Inj) 0 ml IV STAT PRN; Protocol PRN Reason: Hypoglycemia Protocol Dextrose (Glutose 15) 0 gm PO ONCE PRN; Protocol PRN Reason: Hypoglycemia Protocol Docusate Sodium (Colace) 100 mg PO BID [facility] Last Admin: 03/08/18 09:28 Dose: 100 mg Ergocalciferol (Drisdol 50,000 Intl Units Cap) 1 cap PO Q7D [facility] Stop: 04/24/18 14:00 Last Admin: 03/06/18 14:19 Dose: 1 cap Furosemide (Lasix) 20 mg IVP Q12H [facility] Last Admin: 03/08/18 05:24 Dose: 20 mg Glucagon (Glucagen Diagnostic Kit) 0 mg IM STAT PRN; Protocol PRN Reason: Hypoglycemia Protocol Heparin Sodium (Porcine) (Heparin) 5,000 units SC Q8 [facility] Last Admin: 03/08/18 05:24 Dose: 5,000 units Dextrose (Dextrose 5% In Water 1000 Ml) 1,000 mls @ 0 mls/hr IV .Q0M PRN; Protocol PRN Reason: Hypoglycemia Protocol Ceftriaxone Sodium 1 gm/ (Sodium Chloride) 100 mls @ 100 mls/hr IVPB DAILY [facility]; Protocol Last Admin: 03/08/18 09:28 Dose: 100 mls/hr Insulin Aspart (Novolog) 10 unit SC ACBL [facility] Last Admin: 03/08/18 08:30 Dose: 10 units Insulin Glargine (Lantus) 30 unit SC [facility] Last Admin: 03/07/18 22:33 Dose: 30 unit Insulin Human Regular (Novolin R) 0 unit SC ACHS [facility]; Protocol Last Admin: 03/08/18 08:30 Dose: 6 units Lactic Acid (Lac-Hydrin 12% Lotion (225 G)) 0 gm EXT BID [facility] Stop: 03/20/18 16:00 Last Admin: 03/08/18 09:29 Dose: 1 applic Lactobacillus Acidophilus (Bacid Acidophilus) 1 cap PO BID [facility] Last Admin: 03/08/18 09:28 Dose: 1 cap Lisinopril (Zestril) 10 mg PO DAILY [facility] Last Admin: 03/08/18 09:28 Dose: 10 mg Morphine Sulfate (Morphine) 0.5 mg IVP Q6 PRN PRN Reason: Pain, moderate (4-7) Morphine Sulfate (Morphine) 1 mg IVP Q6 PRN PRN Reason: Pain, severe (8-10) Nystatin (Nystop Topical Powder) 1 applic TOP BID [facility] Stop: 03/20/18 18:00 Last Admin: 03/08/18 09:29 Dose: 1 applic Rosuvastatin Calcium (Crestor) 2.5 mg PO [facility] Last Admin: 03/07/18 22:55 Dose: 2.5 mg - Labs Labs: 03/08/18 07:56 03/08/18 07:56 PT 12.0 SECONDS (9.7-12.2) 03/08/18 07:56 INR 1.1 03/08/18 07:56 - Constitutional Appears: Well, No Acute Distress - Head Exam Head Exam: ATRAUMATIC - Neck Exam Neck Exam: Full ROM, Normal Inspection - Respiratory Exam Respiratory Exam: NORMAL BREATHING PATTERN - Extremities Exam Additional comments: +ROM ankle/toes no pain with left hip/knee AROM/PROM - Neurological Exam Neurological Exam: Alert, Awake, Oriented x3 Neuro motor strength exam: Right Lower Extremity: 5 - Psychiatric Exam Psychiatric exam: Normal Affect, Normal Mood - Skin Skin Exam: Dry, Normal Color, Warm Additional comments: wound to RLE skin intact to L knee/hip Assessment and Plan (1) Nondisplaced fracture of neck of left femur with routine healing Assessment & Plan: patient unable to complete MRI due to body habitus CT reviewed by Dr. Smith no orthopedic intervention indicated at this time cont PT/OT for rehab placement f/u as outpatient d/w Dr. Smith, agrees with above Status: Acute (2) Vitamin D deficiency Assessment & Plan: supp Status: Acute
[2018-03-08] MEDS: Calcium-Vit D 500 mg-200 Units Tab UD PO SCH (13:06)
--- NOTE | 2018-03-08 16:23 | CP.PCM.PN ---
Subjective - Date & Time of Evaluation Date of Evaluation: 03/08/18 Time of Evaluation: 16:16 - Subjective Subjective: Podiatry - Dr. Sarmiento 62M seen and evaluated for RLE wounds. Friend present at bedside. No new lower extremity complaints per patient. Dressing to RLE clean/dry/intact. Denies n/v/f/d/c/sob. Objective - Vital Signs/Intake and Output Vital Signs (last 24 hours): Temp Pulse Resp BP Pulse Ox 98.3 F 80 20 137/87 95 03/08/18 15:00 03/08/18 15:00 03/08/18 15:00 03/08/18 15:00 03/08/18 15:00 Intake and Output: 03/08/18 03/08/18 06:59 18:59 Output Total 850 Balance -850 - Medications Medications: Current Medications Aspirin (Aspirin Chewable) 81 mg PO DAILY [facility] Last Admin: 03/08/18 09:28 Dose: 81 mg Calcium/Vitamin D (Oyster Shell Calcium/Vitamin D 500 Mg-200 Iu) 1 tab PO DAILY [facility] Last Admin: 03/08/18 13:06 Dose: 1 tab Carvedilol (Coreg) 3.125 mg PO BID [facility] Last Admin: 03/08/18 09:28 Dose: 3.125 mg Dextrose (Dextrose 50% Inj) 0 ml IV STAT PRN; Protocol PRN Reason: Hypoglycemia Protocol Dextrose (Glutose 15) 0 gm PO ONCE PRN; Protocol PRN Reason: Hypoglycemia Protocol Docusate Sodium (Colace) 100 mg PO BID [facility] Last Admin: 03/08/18 09:28 Dose: 100 mg Ergocalciferol (Drisdol 50,000 Intl Units Cap) 1 cap PO Q7D [facility] Stop: 04/24/18 14:00 Last Admin: 03/06/18 14:19 Dose: 1 cap Furosemide (Lasix) 20 mg IVP Q12H [facility] Last Admin: 03/08/18 05:24 Dose: 20 mg Glucagon (Glucagen Diagnostic Kit) 0 mg IM STAT PRN; Protocol PRN Reason: Hypoglycemia Protocol Heparin Sodium (Porcine) (Heparin) 5,000 units SC Q8 [facility] Last Admin: 03/08/18 13:05 Dose: 5,000 units Dextrose (Dextrose 5% In Water 1000 Ml) 1,000 mls @ 0 mls/hr IV .Q0M PRN; Protocol PRN Reason: Hypoglycemia Protocol Ceftriaxone Sodium 1 gm/ (Sodium Chloride) 100 mls @ 100 mls/hr IVPB DAILY [facility]; Protocol Last Admin: 03/08/18 09:28 Dose: 100 mls/hr Insulin Aspart (Novolog) 10 unit SC ACBL [facility] Last Admin: 03/08/18 13:06 Dose: 10 units Insulin Glargine (Lantus) 30 unit SC HS [facility] Last Admin: 03/07/18 22:33 Dose: 30 unit Insulin Human Regular (Novolin R) 0 unit SC ACHS [facility]; Protocol Last Admin: 03/08/18 13:06 Dose: 8 units Lactic Acid (Lac-Hydrin 12% Lotion (225 G)) 0 gm EXT BID [facility] Stop: 03/20/18 16:00 Last Admin: 03/08/18 09:29 Dose: 1 applic Lactobacillus Acidophilus (Bacid Acidophilus) 1 cap PO BID [facility] Last Admin: 03/08/18 09:28 Dose: 1 cap Lisinopril (Zestril) 10 mg PO DAILY [facility] Last Admin: 03/08/18 09:28 Dose: 10 mg Morphine Sulfate (Morphine) 0.5 mg IVP Q6 PRN PRN Reason: Pain, moderate (4-7) Morphine Sulfate (Morphine) 1 mg IVP Q6 PRN PRN Reason: Pain, severe (8-10) Nystatin (Nystop Topical Powder) 1 applic TOP BID [facility] Stop: 03/20/18 18:00 Last Admin: 03/08/18 09:29 Dose: 1 applic Rosuvastatin Calcium (Crestor) 2.5 mg PO [facility] Last Admin: 03/07/18 22:55 Dose: 2.5 mg - Labs Labs: 03/08/18 07:56 03/08/18 07:56 PT 12.0 SECONDS (9.7-12.2) 03/08/18 07:56 INR 1.1 03/08/18 07:56 - Constitutional Appears: Non-toxic, No Acute Distress - Extremities Exam Additional comments: B/L LE focused exam: Vasc: DP/PT pulses are non-palpable b/l 2ry to edema. Cap refill < 3 seconds to all digits. Skin temperature gradient warm to warm from proximal to distal b/l. +3 pitting edema noted to b/l LE up to the level of the tibial tuberosity. Erytheama and mottling noted to b/l LE up to the level of the upper 1/3 of the leg. The erythema blenches out by direct pressure. Neuro: Gross and protective sensations are grossly diminished b/l Derm: +3 pitting edema noted to b/l LE up to the level of the tibial tuberosity. Erytheama and mottling noted to b/l LE up to the level of the upper 1/3 of the leg. The erythema blenches out by direct pressure. scattered breaks in the skin of both legs covered by dry eschars. Superficial ulcerations o noted on the lateral aspect of the left leg with mild serous drainage, No malodor. MSK: Muscle power intact 5/5 to all major muscle groups b/l. Mild pain on palpating the leg B/L. - Neurological Exam Neurological Exam: Alert, Awake, Oriented x3 - Psychiatric Exam Psychiatric exam: Normal Affect, Normal Mood Assessment and Plan - Assessment and Plan (Free Text) Assessment: 62M with RLE venous stasis ulcerations + dermatitis Plan: Patient seen and evaluated Discussed with attending, Dr. Sarmiento Afebrile, WBC 5.4 Bilateral tibfib XR: Negative OM or acute fracture Bilateral LE venous duplex: (-)DVT Continue multipodus boots Continue local wound care RLE: Medihoney, Xeroform, ABD and DSD Podiatry will continue to follow
[2018-03-08] MEDS: Rosuvastatin Calcium 2.5 mg Tab PO SCH (21:57)
[2018-03-08] MEDS: (Lantus) Insulin Glargine, Recombinant SC SCH (21:58)
--- NOTE | 2018-03-08 22:27 | PN ---
DATE: 03/08/2018 FOLLOWUP SUBJECTIVE: The patient denies any chest pain. His breathing is comfortable now. No dizziness. PHYSICAL EXAMINATION: VITAL SIGNS: Blood pressure 137/87, heart rate 80, temperature 98.3, respirations 20. HEENT: Normocephalic. CHEST: Diminished breath sounds over the bases. HEART: S1 and S2, regular. ABDOMEN: Soft. EXTREMITIES: 2+ pitting edema. LABORATORY DATA: Today's SMA-7: Sodium 137, potassium 3.9, chloride 100, CO2 of 32, glucose 248, BUN 17, creatinine 0.8. Today's hemoglobin, hematocrit, white count and platelet count are within normal limits. A venous Doppler of lower extremity official report, no evidence of DVT. ASSESSMENT: 1. Cardiomyopathy. 2. Status post a fall. 3. Chronic impacted left femoral neck fracture. 4. Paroxysmal junctional tachycardia. 5. Uncontrolled diabetes mellitus. RECOMMENDATIONS: Continue aspirin 81 mg once a day, IV Rocephin at 1 g daily, Coreg 3.125 mg twice a day, Crestor 2.5 mg once a day, subcutaneous heparin 5000 units every 8 hours, Lasix 20 mg intravenously every 12 hours, and Zestril 10 mg daily. Case was discussed with the patient at length. Cardiac catheterization is indicated and can be delayed until the patient is more clinically stable, and it can be performed under direction of his outpatient production wood craftsman whom the patient follows up but does not recall his name. The justification of not doing the cardiac catheterization now is the fact the major benefit will be if the patient has three-vessel disease with ischemic cardiomyopathy, and the major benefit will be from surgical intervention which is the patient not a candidate for it at this time. The case was discussed with the hospitalist, Dr. Reagan with medical residents. Mirza Omalely MD
[2018-03-09 08:10] LABS: BASO % 0.9 % (0.0-2.0); EOS # 0.3 K/uL (0.0-0.7); EOS % 5.3 % (0.0-4.0); HEMOGLOBIN 14.6 g/dL (12.0-18.0); LYMPH # 1.4 K/uL (1.0-4.3); LYMPH % 25.2 % (20.0-40.0); MEAN CELL VOLUME 86.5 fL (80.0-94.0); MEAN CORPUSCULAR HEMOGLOBIN 28.6 pg (27.0-31.0); MEAN CORPUSCULAR HGB CONC 33.1 g/dL (33.0-37.0); MEAN PLATELET VOLUME 8.3 fL (7.2-11.7); MONO # 0.5 K/uL (0.0-0.8); MONO % 9.5 % (0.0-10.0); NEUT # 3.2 K/uL (1.8-7.0); NEUT % 59.1 % (50.0-75.0); NRBC % 0.1 % (0.0-2.0); RBC 5.1 Mil/uL (4.40-5.90); RED CELL DISTRIBUTION WIDTH 14.6 % (11.5-14.5); WHITE BLOOD COUNT 5.4 K/uL (4.8-10.8)
[2018-03-09 08:17] LABS: ALB/GLOB RATIO 0.9 (1.0-2.1); ALBUMIN 2.9 g/dL (3.5-5.0); ALT/SGPT 26 U/L (21-72); AST/SGOT 22 U/L (17-59); BLOOD UREA NITROGEN 18 mg/dL (9-20); CALCIUM 8.4 mg/dl (8.6-10.4); GFR NON-AFRICAN AMERICAN > 60
[2018-03-09] MEDS: (Novolin R) Insulin Human Regular 100 units/ml vial SC SCH ×4 (08:19→21:44)
[2018-03-09] MEDS: (Novolog) Insulin Aspart, Recombinant 100 u/ml 10 ml vial SC SCH ×2 (08:19→13:10)
--- NOTE | 2018-03-09 10:45 | PCM.PSYCH ---
Initial Psychiatric Evaluation - Initial Psychiatric Evaluation Type of Admission: Voluntary Legal Status: Capacity Current Medications: Active Medications Generic Name Dose Route Start Last Admin Trade Name Freq PRN Reason Stop Dose Admin Aspirin 81 mg 03/06/18 15:30 03/08/18 09:28 Aspirin Chewable PO 81 mg DAILY [facility] Administration Calcium/Vitamin D 1 tab 03/08/18 12:00 03/08/18 13:06 Oyster Shell Calcium/Vitamin D 500 Mg-200 Iu PO 1 tab DAILY [facility] Administration Carvedilol 3.125 mg 03/06/18 18:00 03/08/18 17:26 Coreg PO 3.125 mg BID [facility] Administration Dextrose 0 ml 03/05/18 16:59 Dextrose 50% Inj IV STAT PRN Hypoglycemia Protocol Protocol Dextrose 0 gm 03/05/18 16:59 Glutose 15 PO ONCE PRN Hypoglycemia Protocol Protocol Docusate Sodium 100 mg 03/05/18 18:15 03/08/18 17:26 Colace PO 100 mg BID [facility] Administration Ergocalciferol 1 cap 03/06/18 14:00 03/06/18 14:19 Drisdol 50,000 Intl Units Cap PO 04/24/18 14:00 1 cap Q7D [facility] Administration Furosemide 20 mg 03/05/18 16:45 03/09/18 05:33 Lasix IVP 20 mg Q12H [facility] Administration Glucagon 0 mg 03/05/18 16:59 Glucagen Diagnostic Kit IM STAT PRN Hypoglycemia Protocol Protocol Heparin Sodium (Porcine) 5,000 units 03/05/18 22:00 03/09/18 05:33 Heparin SC 5,000 units Q8 [facility] Administration Dextrose 1,000 mls @ 0 mls/hr 03/05/18 16:59 Dextrose 5% In Water 1000 Ml IV .Q0M PRN Hypoglycemia Protocol Protocol Per Protocol Ceftriaxone Sodium 1 gm/ 100 mls @ 100 mls/hr 03/05/18 17:15 03/08/18 09:28 Sodium Chloride IVPB 100 mls/hr DAILY [facility] Administration Protocol Insulin Aspart 10 unit 03/07/18 11:30 03/09/18 08:19 Novolog SC 10 units ACBL [facility] Administration Insulin Glargine 34 unit 03/09/18 22:00 Lantus SC HS [facility] Insulin Human Regular 0 unit 03/05/18 22:00 03/09/18 08:19 Novolin R SC 4 units ACHS [facility] Administration Protocol Lactic Acid 0 gm 03/06/18 18:00 03/08/18 17:32 Lac-Hydrin 12% Lotion (225 G) EXT 03/20/18 16:00 1 applic BID [facility] Administration Lactobacillus Acidophilus 1 cap 03/05/18 18:00 03/08/18 17:26 Bacid Acidophilus PO 1 cap BID [facility] Administration Lisinopril 10 mg 03/05/18 17:15 03/08/18 09:28 Zestril PO 10 mg DAILY [facility] Administration Morphine Sulfate 0.5 mg 03/05/18 18:07 Morphine IVP Q6 PRN Pain, moderate (4-7) Morphine Sulfate 1 mg 03/05/18 18:09 Morphine IVP Q6 PRN Pain, severe (8-10) Nystatin 1 applic 03/05/18 18:00 03/08/18 17:32 Nystop Topical Powder TOP 03/20/18 18:00 1 applic BID [facility] Administration Rosuvastatin Calcium 2.5 mg 03/06/18 22:00 03/08/18 21:57 Crestor PO 2.5 mg HS [facility]EN Administration Past Psychiatric History - Past Psychiatric History Pertinent Medical Hx (Current Medical&Sleep Prob, Allergies): Allergies Allergy/AdvReac Type Severity Reaction Status Date / Time No Known Allergies Allergy Verified 03/05/18 12:30 Furosemide [Lasix] 20 mg PO DAILY 03/05/18 GlipiZIDE [Glucotrol] 5 mg PO DAILY 03/05/18 MetFORMIN [glucOPHAGE] 1,000 mg PO BID 03/05/18 SITagliptin [Januvia] 25 mg PO DAILY 03/05/18
[2018-03-09] MEDS: Lactobacillus Acidophilus 500 MU Cap PO SCH ×2 (10:59→17:26)
[2018-03-09] MEDS: Ammonium Lactate 12% Lotion (225 g) EXT SCH ×2 (10:59→17:30)
[2018-03-09] MEDS: Calcium-Vit D 500 mg-200 Units Tab UD PO SCH (10:59)
--- NOTE | 2018-03-09 13:40 | CP.PCM.PN ---
Subjective - Date & Time of Evaluation Date of Evaluation: 03/09/18 Time of Evaluation: 13:38 - Subjective Subjective: Patient tolerating PT well. No increased pain in hip or groin with ambulation. Denies numbness/tingling. Review of Systems - Review of Systems All systems: reviewed and no additional remarkable complaints except - Musculoskeletal Musculoskeletal: As Par HPI Objective - Vital Signs/Intake and Output Vital Signs (last 24 hours): Temp Pulse Resp BP Pulse Ox 98.3 F 80 84 H 159/106 H 96 03/09/18 08:06 03/09/18 08:06 03/09/18 13:12 03/09/18 13:12 03/09/18 08:06 Intake and Output: 03/09/18 03/09/18 06:59 18:59 Intake Total 600 Output Total 1800 Balance -1200 - Medications Medications: Current Medications Aspirin (Aspirin Chewable) 81 mg PO DAILY [facility] Last Admin: 03/09/18 10:59 Dose: 81 mg Calcium/Vitamin D (Oyster Shell Calcium/Vitamin D 500 Mg-200 Iu) 1 tab PO DAILY [facility] Last Admin: 03/09/18 10:59 Dose: 1 tab Carvedilol (Coreg) 3.125 mg PO BID [facility] Last Admin: 03/09/18 10:59 Dose: 3.125 mg Dextrose (Dextrose 50% Inj) 0 ml IV STAT PRN; Protocol PRN Reason: Hypoglycemia Protocol Dextrose (Glutose 15) 0 gm PO ONCE PRN; Protocol PRN Reason: Hypoglycemia Protocol Docusate Sodium (Colace) 100 mg PO BID [facility] Last Admin: 03/09/18 10:59 Dose: Not Given Ergocalciferol (Drisdol 50,000 Intl Units Cap) 1 cap PO Q7D [facility] Stop: 04/24/18 14:00 Last Admin: 03/06/18 14:19 Dose: 1 cap Furosemide (Lasix) 20 mg IVP Q12H [facility] Last Admin: 03/09/18 05:33 Dose: 20 mg Glucagon (Glucagen Diagnostic Kit) 0 mg IM STAT PRN; Protocol PRN Reason: Hypoglycemia Protocol Heparin Sodium (Porcine) (Heparin) 5,000 units SC Q8 [facility] Last Admin: 03/09/18 13:10 Dose: 5,000 units Dextrose (Dextrose 5% In Water 1000 Ml) 1,000 mls @ 0 mls/hr IV .Q0M PRN; Protocol PRN Reason: Hypoglycemia Protocol Ceftriaxone Sodium 1 gm/ (Sodium Chloride) 100 mls @ 100 mls/hr IVPB DAILY [facility]; Protocol Last Admin: 03/09/18 11:03 Dose: 100 mls/hr Insulin Aspart (Novolog) 10 unit SC ACBL [facility] Last Admin: 03/09/18 13:10 Dose: 10 units Insulin Glargine (Lantus) 34 unit SC HS [facility] Insulin Human Regular (Novolin R) 0 unit SC ACHS [facility]; Protocol Last Admin: 03/09/18 13:11 Dose: 4 units Lactic Acid (Lac-Hydrin 12% Lotion (225 G)) 0 gm EXT BID [facility] Stop: 03/20/18 16:00 Last Admin: 03/09/18 10:59 Dose: 1 applic Lactobacillus Acidophilus (Bacid Acidophilus) 1 cap PO BID [facility] Last Admin: 03/09/18 10:59 Dose: 1 cap Lisinopril (Zestril) 10 mg PO DAILY [facility] Last Admin: 03/09/18 11:03 Dose: 10 mg Morphine Sulfate (Morphine) 0.5 mg IVP Q6 PRN PRN Reason: Pain, moderate (4-7) Morphine Sulfate (Morphine) 1 mg IVP Q6 PRN PRN Reason: Pain, severe (8-10) Nystatin (Nystop Topical Powder) 1 applic TOP BID [facility] Stop: 03/20/18 18:00 Last Admin: 03/09/18 11:00 Dose: 1 applic Rosuvastatin Calcium (Crestor) 2.5 mg PO [facility] Last Admin: 03/08/18 21:57 Dose: 2.5 mg - Labs Labs: 03/09/18 07:52 03/09/18 07:52 PT 12.0 SECONDS (9.7-12.2) 03/08/18 07:56 INR 1.1 03/08/18 07:56 - Constitutional Appears: Well, No Acute Distress - Neck Exam Neck Exam: Full ROM, Normal Inspection - Respiratory Exam Respiratory Exam: NORMAL BREATHING PATTERN - Cardiovascular Exam Additional comments: normal temp to knee/LLE - Extremities Exam Additional comments: no pain with hip ROM calves soft NT neg homans - Neurological Exam Neurological Exam: Alert, Awake, Oriented x3 Neuro motor strength exam: Left Lower Extremity: 5, Right Lower Extremity: 5 - Psychiatric Exam Psychiatric exam: Normal Affect, Normal Mood - Skin Skin Exam: Dry, Intact, Normal Color, Warm Additional comments: LLE Assessment and Plan (1) Nondisplaced fracture of neck of left femur with routine healing Assessment & Plan: cont PT/OT pending rehab placement improving daily with PT non operative VTE proph f/u as outpatient 2 weeks call for appt d/w Dr. Smith, agrees with above Status: Acute (2) Vitamin D deficiency Assessment & Plan: supp Status: Acute
--- NOTE | 2018-03-09 14:51 | CP.PCM.PN ---
<Chris Becker - Last Filed: 03/09/18 15:12> Subjective - Date & Time of Evaluation Date of Evaluation: 03/09/18 Time of Evaluation: 09:00 - Subjective Subjective: PGY-1 Medicine Progress Note for Dr. Reagan Patient seen and examined at bedside this AM. No acute overnight events reported. Continues to deny any pain in the hip or groin area with ambulation. No other acute somatic complaints. No fevers/chills, headaches, dizziness, chest pain, palpitations, SOB, cough, abdominal pain, n/v/d/c, dysuria, or changes in stool. Objective - Vital Signs/Intake and Output Vital Signs (last 24 hours): Temp Pulse Resp BP Pulse Ox 98.3 F 80 84 H 159/106 H 96 03/09/18 08:06 03/09/18 08:06 03/09/18 13:12 03/09/18 13:12 03/09/18 08:06 Intake and Output: 03/09/18 03/09/18 06:59 18:59 Intake Total 600 Output Total 1800 Balance -1200 - Medications Medications: Current Medications Aspirin (Aspirin Chewable) 81 mg PO DAILY [facility] Last Admin: 03/09/18 10:59 Dose: 81 mg Calcium/Vitamin D (Oyster Shell Calcium/Vitamin D 500 Mg-200 Iu) 1 tab PO DAILY [facility] Last Admin: 03/09/18 10:59 Dose: 1 tab Carvedilol (Coreg) 3.125 mg PO BID [facility] Last Admin: 03/09/18 10:59 Dose: 3.125 mg Dextrose (Dextrose 50% Inj) 0 ml IV STAT PRN; Protocol PRN Reason: Hypoglycemia Protocol Dextrose (Glutose 15) 0 gm PO ONCE PRN; Protocol PRN Reason: Hypoglycemia Protocol Docusate Sodium (Colace) 100 mg PO BID [facility] Last Admin: 03/09/18 10:59 Dose: Not Given Ergocalciferol (Drisdol 50,000 Intl Units Cap) 1 cap PO Q7D [facility] Stop: 04/24/18 14:00 Last Admin: 03/06/18 14:19 Dose: 1 cap Furosemide (Lasix) 20 mg IVP Q12H [facility] Last Admin: 03/09/18 05:33 Dose: 20 mg Glucagon (Glucagen Diagnostic Kit) 0 mg IM STAT PRN; Protocol PRN Reason: Hypoglycemia Protocol Heparin Sodium (Porcine) (Heparin) 5,000 units SC Q8 [facility] Last Admin: 03/09/18 13:10 Dose: 5,000 units Dextrose (Dextrose 5% In Water 1000 Ml) 1,000 mls @ 0 mls/hr IV .Q0M PRN; Protocol PRN Reason: Hypoglycemia Protocol Ceftriaxone Sodium 1 gm/ (Sodium Chloride) 100 mls @ 100 mls/hr IVPB DAILY [facility]; Protocol Last Admin: 03/09/18 11:03 Dose: 100 mls/hr Insulin Aspart (Novolog) 10 unit SC ACBL [facility] Last Admin: 03/09/18 13:10 Dose: 10 units Insulin Glargine (Lantus) 34 unit SC HS [facility] Insulin Human Regular (Novolin R) 0 unit SC ACHS [facility]; Protocol Last Admin: 03/09/18 13:11 Dose: 4 units Lactic Acid (Lac-Hydrin 12% Lotion (225 G)) 0 gm EXT BID [facility] Stop: 03/20/18 16:00 Last Admin: 03/09/18 10:59 Dose: 1 applic Lactobacillus Acidophilus (Bacid Acidophilus) 1 cap PO BID [facility] Last Admin: 03/09/18 10:59 Dose: 1 cap Lisinopril (Zestril) 10 mg PO DAILY [facility] Last Admin: 03/09/18 11:03 Dose: 10 mg Morphine Sulfate (Morphine) 0.5 mg IVP Q6 PRN PRN Reason: Pain, moderate (4-7) Morphine Sulfate (Morphine) 1 mg IVP Q6 PRN PRN Reason: Pain, severe (8-10) Nystatin (Nystop Topical Powder) 1 applic TOP BID [facility] Stop: 03/20/18 18:00 Last Admin: 03/09/18 11:00 Dose: 1 applic Rosuvastatin Calcium (Crestor) 2.5 mg PO HS [facility] Last Admin: 03/08/18 21:57 Dose: 2.5 mg - Labs Labs: 03/09/18 07:52 03/09/18 07:52 PT 12.0 SECONDS (9.7-12.2) 03/08/18 07:56 INR 1.1 03/08/18 07:56 - Constitutional Appears: Non-toxic, No Acute Distress, Unkempt, Other (obese) - Head Exam Head Exam: ATRAUMATIC, NORMAL INSPECTION, NORMOCEPHALIC - Eye Exam Eye Exam: EOMI, Normal appearance, PERRL - ENT Exam ENT Exam: Mucous Membranes Moist, Normal Exam - Neck Exam Neck Exam: Full ROM, Normal Inspection - Respiratory Exam Respiratory Exam: Clear to Ausculation Bilateral, NORMAL BREATHING PATTERN. absent: Accessory Muscle Use, Rales, Wheezes, Respiratory Distress - Cardiovascular Exam Cardiovascular Exam: REGULAR RHYTHM, +S1, +S2 - GI/Abdominal Exam GI & Abdominal Exam: Soft, Normal Bowel Sounds. absent: Distended, Firm, Guarding, Rigid Additional comments: morbidly obese - Exam Exam: Scrotal Swelling Additional comments: Erythema to scrotum and inguinal folds improving, nystatin powder applied. Penile retraction with rowley draining clear yellow urine. - Extremities Exam Additional comments: RLE dressing clean/dry/intact B/L LE from knees down 2+ pitting edema. Redness improved. Non tender to palp ation. - Neurological Exam Neurological Exam: Alert, Awake, Oriented x3 - Psychiatric Exam Psychiatric exam: Flat Affect - Skin Skin Exam: Dry, Warm Additional comments: as noted above Assessment and Plan - Assessment and Plan (Free Text) Assessment: 62 year old M with PMHx of HTN, DM type II presenting s/p 2 falls. Denies LOC or head trauma. No acute fractures noted but has chronic L femoral neck fracture. Denies previous history of falls or syncopal events. 2+ pitting e ashley in legs bilaterally. Being evaluated for LE lymphedema/venous insufficiency Also endorses tingling sensation to dorsum of feet bilaterally. Plan: Congestive heart failure -abnormal EKG w/ PVCs and ST/T wave abnormalities -BNP 12,000 -CXR: cardiomegaly -head of bed @45 degrees -daily weights, I/O -ECHO (03/07): EF 30%, LV systolic function is severely impaired. Moderate dilatation of all chambers. Grade 1 diastolic dysfunction-pseudonormal filling dynamics. RV systolic function moderately reduced. Mild tricuspid regurgitation. RV systolic pressure 30-40 mmHg suggestive of mild pulmonary HTN. Dilated IVC with poor inspiration collapse consistent with elevated RA pressure. Trace pericardial effusion. -Cardiology recs (Dr. Omalley) appreciated -Patient was followed by Dr. Nuñez, who was made aware of case -f/u recs re:possible cardiac cath and outpatient follow-up LE edema, likely 2/2 chronic venous insufficiency vs CHF -SCD contraindication -lac-hydrin to dorsum and heels b/l BID x7 days -d/c on 03/13 -LE duplex (03/06): -no evidence of deep or superficial vein thrombosis of b/l LE -mild valvular incompetence noted of the L great saphenous vein -Wound care on board -Podiatry recs (Dr. Sarmiento) appreciated -R leg dressing changes using xeroform, ABD, and DSD -Medihoney to be added to daily dressing change -pt to wear multipodus boot at all times while in bead s/p fall, 2/2 LE weakness/paresthesias, new onset HF -fall risk protocol -head CT, knee x-rays, hip x-ray negative for acute fracture. Left fem neck fracture-old LE ulcers, stage 2 and unstageable -lasix -wound care Fungal infection, B/L inguinal, scrotal, intergluteal cleft -topical nystatin BID x 14 days -rowley for penile retraction, rowley care w/ betadine TID DM2, uncontrolled -A1C 12.7 -ISS high dose -Lantus to 34 units HS -Novolog 10 units ACBL -hypoglycemia protocol -lipid panel WNL, low dose crestor on board Poor hygeine, difficulty caring for self-pt agreed -major case detective/social eval -PT eval: recommend [facility] when stable for discharge -Per friend at bedside, patient is depressed but denies. Has not left apt in 4 years, is unkempt, is medically noncompliant. Refusing to admit he is not able to ambulate. -Psych consulted (Dr. Pepper who transferred case to Dr. Croft) -f/u Psych recs HTN -continue to monitor -Lasix 20 mg IVP BID -Lisinopril 10 mg PO Daily -Coreg 3.125 mg PO BID Possible UTI -Urine Cx (03/05): no growth -Wound Cx (03/06): prelim gram positive cocci -Rocephin 1gm IV daily PPx, Diet, Disposition -DVT ppx: SCD contraindication; heparin 5000 units q8h -GI ppx: lactobacillus -Diet: Heart healthy, low salt -Disposition: f/u Cardio (Dr. Nuñez) and Psych (Dr. Croft) recs prior to d/c to [facility] Case discussed with Dr. Tez Becker DO, PGY-1 <Syd Reagan - Last Filed: 03/09/18 15:48> Objective - Vital Signs/Intake and Output Vital Signs (last 24 hours): Temp Pulse Resp BP Pulse Ox 98.3 F 80 84 H 159/106 H 96 03/09/18 08:06 03/09/18 08:06 03/09/18 13:12 03/09/18 13:12 03/09/18 08:06 Intake and Output: 03/09/18 03/09/18 06:59 18:59 Intake Total 600 Output Total 1800 Balance -1200 - Medications Medications: Current Medications Aspirin (Aspirin Chewable) 81 mg PO DAILY [facility] Last Admin: 03/09/18 10:59 Dose: 81 mg Calcium/Vitamin D (Oyster Shell Calcium/Vitamin D 500 Mg-200 Iu) 1 tab PO DAILY [facility] Last Admin: 03/09/18 10:59 Dose: 1 tab Carvedilol (Coreg) 3.125 mg PO BID [facility] Last Admin: 03/09/18 10:59 Dose: 3.125 mg Dextrose (Dextrose 50% Inj) 0 ml IV STAT PRN; Protocol PRN Reason: Hypoglycemia Protocol Dextrose (Glutose 15) 0 gm PO ONCE PRN; Protocol PRN Reason: Hypoglycemia Protocol Docusate Sodium (Colace) 100 mg PO BID [facility] Last Admin: 03/09/18 10:59 Dose: Not Given Ergocalciferol (Drisdol 50,000 Intl Units Cap) 1 cap PO Q7D [facility] Stop: 04/24/18 14:00 Last Admin: 03/06/18 14:19 Dose: 1 cap Furosemide (Lasix) 20 mg IVP Q12H [facility] Last Admin: 03/09/18 05:33 Dose: 20 mg Glucagon (Glucagen Diagnostic Kit) 0 mg IM STAT PRN; Protocol PRN Reason: Hypoglycemia Protocol Heparin Sodium (Porcine) (Heparin) 5,000 units SC Q8 [facility] Last Admin: 03/09/18 13:10 Dose: 5,000 units Dextrose (Dextrose 5% In Water 1000 Ml) 1,000 mls @ 0 mls/hr IV .Q0M PRN; Protocol PRN Reason: Hypoglycemia Protocol Ceftriaxone Sodium 1 gm/ (Sodium Chloride) 100 mls @ 100 mls/hr IVPB DAILY [facility]; Protocol Last Admin: 03/09/18 11:03 Dose: 100 mls/hr Insulin Aspart (Novolog) 10 unit SC ACBL [facility] Last Admin: 03/09/18 13:10 Dose: 10 units Insulin Glargine (Lantus) 34 unit SC HS [facility] Insulin Human Regular (Novolin R) 0 unit SC ACHS [facility]; Protocol Last Admin: 03/09/18 13:11 Dose: 4 units Lactic Acid (Lac-Hydrin 12% Lotion (225 G)) 0 gm EXT BID [facility] Stop: 03/20/18 16:00 Last Admin: 03/09/18 10:59 Dose: 1 applic Lactobacillus Acidophilus (Bacid Acidophilus) 1 cap PO BID [facility] Last Admin: 03/09/18 10:59 Dose: 1 cap Lisinopril (Zestril) 10 mg PO DAILY [facility] Last Admin: 03/09/18 11:03 Dose: 10 mg Morphine Sulfate (Morphine) 0.5 mg IVP Q6 PRN PRN Reason: Pain, moderate (4-7) Morphine Sulfate (Morphine) 1 mg IVP Q6 PRN PRN Reason: Pain, severe (8-10) Nystatin (Nystop Topical Powder) 1 applic TOP BID [facility] Stop: 03/20/18 18:00 Last Admin: 03/09/18 11:00 Dose: 1 applic Rosuvastatin Calcium (Crestor) 2.5 mg PO HS [facility] Last Admin: 03/08/18 21:57 Dose: 2.5 mg - Labs Labs: 03/09/18 07:52 03/09/18 07:52 PT 12.0 SECONDS (9.7-12.2) 03/08/18 07:56 INR 1.1 03/08/18 07:56 Attending/Attestation - Attestation I have personally seen and examined this patient.: Yes I have fully participated in the care of the patient.: Yes I have reviewed all pertinent clinical information, including history, physical exam and plan: Yes Notes (Text): Seen and examined . Patient has no complain. His initialchest x ray is suspicious for lung nodule. I will do a CT chest As per patient's primary care care office( Dr Judge) his cradiologist is DR Nuñez I spoke to Dr Greenwood . He agrees to see this patient.spoke to DR Bullock. Had long discussion with the patient's sister Rut at [phone] after talk to the patient. 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 Continue IV lasix, coreg,lisinopril ,statin and a sprin follow psychiatrist recommendation. spoke to Dr Croft. We will follow biological chemist Dr Nuñez
--- NOTE | 2018-03-09 15:45 | CP.PCM.PN ---
Subjective - Date & Time of Evaluation Date of Evaluation: 03/09/18 Time of Evaluation: 08:00 - Subjective Subjective: Podiatry - Dr. Sarmiento 62M seen and evaluated for RLE wounds. Patient resting comfortably, NAD. No acute events overnight. No new lower extremity complaints per patient. Dressing to RLE clean/dry/intact. Denies n/v/f/d/c/sob. Objective - Vital Signs/Intake and Output Vital Signs (last 24 hours): Temp Pulse Resp BP Pulse Ox 98.7 F 75 20 139/89 97 03/09/18 15:00 03/09/18 15:00 03/09/18 15:00 03/09/18 15:00 03/09/18 15:00 Intake and Output: 03/09/18 03/09/18 06:59 18:59 Intake Total 600 200 Output Total 1800 Balance -1200 200 - Medications Medications: Current Medications Aspirin (Aspirin Chewable) 81 mg PO DAILY [facility] Last Admin: 03/09/18 10:59 Dose: 81 mg Calcium/Vitamin D (Oyster Shell Calcium/Vitamin D 500 Mg-200 Iu) 1 tab PO DAILY [facility] Last Admin: 03/09/18 10:59 Dose: 1 tab Carvedilol (Coreg) 3.125 mg PO BID [facility] Last Admin: 03/09/18 10:59 Dose: 3.125 mg Dextrose (Dextrose 50% Inj) 0 ml IV STAT PRN; Protocol PRN Reason: Hypoglycemia Protocol Dextrose (Glutose 15) 0 gm PO ONCE PRN; Protocol PRN Reason: Hypoglycemia Protocol Docusate Sodium (Colace) 100 mg PO BID [facility] Last Admin: 03/09/18 10:59 Dose: Not Given Ergocalciferol (Drisdol 50,000 Intl Units Cap) 1 cap PO Q7D [facility] Stop: 04/24/18 14:00 Last Admin: 03/06/18 14:19 Dose: 1 cap Furosemide (Lasix) 20 mg IVP Q12H [facility] Last Admin: 03/09/18 05:33 Dose: 20 mg Glucagon (Glucagen Diagnostic Kit) 0 mg IM STAT PRN; Protocol PRN Reason: Hypoglycemia Protocol Heparin Sodium (Porcine) (Heparin) 5,000 units SC Q8 [facility] Last Admin: 03/09/18 13:10 Dose: 5,000 units Dextrose (Dextrose 5% In Water 1000 Ml) 1,000 mls @ 0 mls/hr IV .Q0M PRN; Protocol PRN Reason: Hypoglycemia Protocol Ceftriaxone Sodium 1 gm/ (Sodium Chloride) 100 mls @ 100 mls/hr IVPB DAILY [facility]; Protocol Last Admin: 03/09/18 11:03 Dose: 100 mls/hr Insulin Aspart (Novolog) 10 unit SC ACBL [facility] Last Admin: 03/09/18 13:10 Dose: 10 units Insulin Glargine (Lantus) 34 unit SC HS [facility] Insulin Human Regular (Novolin R) 0 unit SC ACHS [facility]; Protocol Last Admin: 03/09/18 13:11 Dose: 4 units Lactic Acid (Lac-Hydrin 12% Lotion (225 G)) 0 gm EXT BID [facility] Stop: 03/20/18 16:00 Last Admin: 03/09/18 10:59 Dose: 1 applic Lactobacillus Acidophilus (Bacid Acidophilus) 1 cap PO BID [facility] Last Admin: 03/09/18 10:59 Dose: 1 cap Lisinopril (Zestril) 10 mg PO DAILY [facility] Last Admin: 03/09/18 11:03 Dose: 10 mg Morphine Sulfate (Morphine) 0.5 mg IVP Q6 PRN PRN Reason: Pain, moderate (4-7) Morphine Sulfate (Morphine) 1 mg IVP Q6 PRN PRN Reason: Pain, severe (8-10) Nystatin (Nystop Topical Powder) 1 applic TOP BID [facility] Stop: 03/20/18 18:00 Last Admin: 03/09/18 11:00 Dose: 1 applic Rosuvastatin Calcium (Crestor) 2.5 mg PO [facility] Last Admin: 03/08/18 21:57 Dose: 2.5 mg - Labs Labs: 03/09/18 07:52 03/09/18 07:52 PT 12.0 SECONDS (9.7-12.2) 03/08/18 07:56 INR 1.1 03/08/18 07:56 - Constitutional Appears: Non-toxic, No Acute Distress - Extremities Exam Additional comments: B/L LE focused exam: Vasc: DP/PT pulses are non-palpable b/l 2ry to edema. Cap refill < 3 seconds to all digits. Skin temperature gradient warm to warm from proximal to distal b/l. +3 pitting edema noted to b/l LE up to the level of the tibial tuberosity. Erytheama and mottling noted to b/l LE up to the level of the upper 1/3 of the leg. The erythema blenches out by direct pressure. Neuro: Gross and protective sensations are grossly diminished b/l Derm: +3 pitting edema noted to b/l LE up to the level of the tibial tuberosity. Erytheama and mottling noted to b/l LE up to the level of the upper 1/3 of the leg. The erythema blenches out by direct pressure. scattered breaks in the skin of both legs covered by dry eschars. Superficial ulcerations o noted on the lateral aspect of the left leg with mild serous drainage, No malodor. MSK: Muscle power intact 5/5 to all major muscle groups b/l. No pain on palpation present. - Neurological Exam Neurological Exam: Alert, Awake, Oriented x3 - Psychiatric Exam Psychiatric exam: Normal Affect, Normal Mood Assessment and Plan - Assessment and Plan (Free Text) Assessment: 62M with RLE venous stasis ulcerations + dermatitis Plan: Patient seen and evaluated with attending, Dr. Sarmiento Afebrile, WBC 5.4 Bilateral tibfib XR: Negative OM or acute fracture Bilateral LE venous duplex: (-)DVT Continue multipodus boots Continue local wound care RLE: Xeroform, DSD, [place] Podiatry will continue to follow
--- NOTE | 2018-03-09 16:31 | CP.PCM.CON ---
History of Present Illness - History of Present Illness History of Present Illness: The patient is a 62 year old man who cant walk much, morbidly obese, fell at home was on the floor for a night. Denies syncope, chest pain. pt waw me in the office 07/2017, report not available at this time. Pt had a stress test. He did not follow up for results Pt seen by Dr atkinson. Work up so far: ''ECG by me nsr, mild non specific st changes. There is one ecg with tremor artifact, and not a junctional rhythm with afib. CXR shows mild congestion and bnp is elevated. TNi negative Pt has an old healed hip fracture. Pt denies previous falling or hip trauma. Review of Systems - Review of Systems All systems: reviewed and no additional remarkable complaints except (as above) Past Patient History - Past Medical History & Family History Past Medical History?: Yes Past Family History: Reviewed and not pertinent - Past Social History Smoking Status: Never Smoked - CARDIAC Hx Hypertension: Yes - PULMONARY Hx Respiratory Disorders: No - NEUROLOGICAL Hx Neurological Disorder: No - HEENT Hx HEENT Problems: No - RENAL Hx Chronic Kidney Disease: No - ENDOCRINE/METABOLIC Hx Diabetes Mellitus Type 2: Yes - HEMATOLOGICAL/ONCOLOGICAL Hx Blood Disorders: No - INTEGUMENTARY Hx Dermatological Problems: No - MUSCULOSKELETAL/RHEUMATOLOGICAL Hx Musculoskeletal Disorders: No Hx Falls: Yes (fell at home, close to the nursing station) - GASTROINTESTINAL Hx Gastrointestinal Disorders: No - GENITOURINARY/GYNECOLOGICAL Hx Genitourinary Disorders: No - PSYCHIATRIC Hx Substance Use: No - SURGICAL HISTORY Hx Cholecystectomy: Yes (05/2014) - ANESTHESIA Hx Anesthesia: Yes Hx Anesthesia Reactions: No Meds Allergies/Adverse Reactions: Allergies Allergy/AdvReac Type Severity Reaction Status Date / Time No Known Allergies Allergy Verified 03/05/18 12:30 - Medications Medications: Current Medications Aspirin (Aspirin Chewable) 81 mg PO DAILY [facility] Last Admin: 03/09/18 10:59 Dose: 81 mg Calcium/Vitamin D (Oyster Shell Calcium/Vitamin D 500 Mg-200 Iu) 1 tab PO DAILY [facility] Last Admin: 03/09/18 10:59 Dose: 1 tab Carvedilol (Coreg) 3.125 mg PO BID [facility] Last Admin: 03/09/18 10:59 Dose: 3.125 mg Dextrose (Dextrose 50% Inj) 0 ml IV STAT PRN; Protocol PRN Reason: Hypoglycemia Protocol Dextrose (Glutose 15) 0 gm PO ONCE PRN; Protocol PRN Reason: Hypoglycemia Protocol Docusate Sodium (Colace) 100 mg PO BID [facility] Last Admin: 03/09/18 10:59 Dose: Not Given Ergocalciferol (Drisdol 50,000 Intl Units Cap) 1 cap PO Q7D [facility] Stop: 04/24/18 14:00 Last Admin: 03/06/18 14:19 Dose: 1 cap Furosemide (Lasix) 20 mg IVP Q12H [facility] Last Admin: 03/09/18 05:33 Dose: 20 mg Glucagon (Glucagen Diagnostic Kit) 0 mg IM STAT PRN; Protocol PRN Reason: Hypoglycemia Protocol Heparin Sodium (Porcine) (Heparin) 5,000 units SC Q8 [facility] Last Admin: 03/09/18 13:10 Dose: 5,000 units Dextrose (Dextrose 5% In Water 1000 Ml) 1,000 mls @ 0 mls/hr IV .Q0M PRN; Pr otocol PRN Reason: Hypoglycemia Protocol Ceftriaxone Sodium 1 gm/ (Sodium Chloride) 100 mls @ 100 mls/hr IVPB DAILY [facility]; Protocol Last Admin: 03/09/18 11:03 Dose: 100 mls/hr Insulin Aspart (Novolog) 10 unit SC ACBL [facility] Last Admin: 03/09/18 13:10 Dose: 10 units Insulin Glargine (Lantus) 34 unit SC HS [facility] Insulin Human Regular (Novolin R) 0 unit SC ACHS [facility]; Protocol Last Admin: 03/09/18 13:11 Dose: 4 units Lactic Acid (Lac-Hydrin 12% Lotion (225 G)) 0 gm EXT BID [facility] Stop: 03/20/18 16:00 Last Admin: 03/09/18 10:59 Dose: 1 applic Lactobacillus Acidophilus (Bacid Acidophilus) 1 cap PO BID [facility] Last Admin: 03/09/18 10:59 Dose: 1 cap Lisinopril (Zestril) 10 mg PO DAILY [facility] Last Admin: 03/09/18 11:03 Dose: 10 mg Morphine Sulfate (Morphine) 0.5 mg IVP Q6 PRN PRN Reason: Pain, moderate (4-7) Morphine Sulfate (Morphine) 1 mg IVP Q6 PRN PRN Reason: Pain, severe (8-10) Nystatin (Nystop Topical Powder) 1 applic TOP BID [facility] Stop: 03/20/18 18:00 Last Admin: 03/09/18 11:00 Dose: 1 applic Rosuvastatin Calcium (Crestor) 2.5 mg PO HS [facility] Last Admin: 03/08/18 21:57 Dose: 2.5 mg Physical Exam - Head Exam Head Exam: ATRAUMATIC - Eye Exam Eye Exam: EOMI - ENT Exam ENT Exam: Mucous Membranes Dry - Respiratory Exam Respiratory Exam: Clear to Auscultation Bilateral, NORMAL BREATHING PATTERN - Cardiovascular Exam Cardiovascular Exam: REGULAR RHYTHM - GI/Abdominal Exam GI & Abdominal Exam: Normal Bowel Sounds - Extremities Exam Extremities exam: Positive for: pedal edema Additional comments: kraig bandage right leg - Back Exam Back exam: NORMAL INSPECTION - Neurological Exam Neurological exam: Alert, Oriented x3 - Psychiatric Exam Psychiatric exam: Normal Affect Results - Vital Signs Recent Vital Signs: Last Vital Signs Temp 98.7 F 03/09/18 15:00 Pulse 77 03/09/18 15:59 Resp 20 03/09/18 15:00 BP 139/89 03/09/18 15:00 Pulse Ox 97 03/09/18 15:00 - Labs Result Diagrams: 03/09/18 07:52 03/09/18 07:52 Labs: Laboratory Results - last 24 hr 03/08/18 03/08/18 03/09/18 16:38 21:22 06:26 WBC RBC Hgb Hct MCV MCH MCHC RDW Plt Count MPV Neut % (Auto) Lymph % (Auto) [place] % (Auto) Eos % (Auto) Baso % (Auto) Neut # (Auto) Lymph # (Auto) [place] # (Auto) Eos # (Auto) Baso # (Auto) Sodium Potassium Chloride Carbon Dioxide Anion Gap BUN Creatinine Est GFR ( Amer) Est GFR (Non-Af Amer) POC Glucose (mg/dL) 168 H 225 H 229 H Random Glucose Calcium Total Bilirubin AST ALT Alkaline Phosphatase Total Protein Albumin Globulin Albumin/Globulin Ratio 03/09/18 03/09/18 03/09/18 07:52 07:52 11:33 WBC 5.4 RBC 5.10 Hgb 14.6 Hct 44.1 MCV 86.5 MCH 28.6 MCHC 33.1 RDW 14.6 H Plt Count 214 MPV 8.3 Neut % (Auto) 59.1 Lymph % (Auto) 25.2 [place] % (Auto) 9.5 Eos % (Auto) 5.3 H Baso % (Auto) 0.9 Neut # (Auto) 3.2 Lymph # (Auto) 1.4 [place] # (Auto) 0.5 Eos # (Auto) 0.3 Baso # (Auto) 0.0 Sodium 137 Potassium 4.2 Chloride 100 Carbon Dioxide 34 H Anion Gap 8 L BUN 18 Creatinine 0.7 L Est GFR ( Amer) > 60 Est GFR (Non-Af Amer) > 60 POC Glucose (mg/dL) 242 H Random Glucose 239 H Calcium 8.4 L Total Bilirubin 0.6 AST 22 ALT 26 Alkaline Phosphatase 66 Total Protein 6.0 L Albumin 2.9 L Globulin 3.1 Albumin/Globulin Ratio 0.9 L - EKG Data EKG Interpreted by: Myself EKG shows normal: Sinus rhythm (as per HPI, by me) Assessment & Plan - Assessment and Plan (Free Text) Assessment: 1. Cardiomyopathy: EF is about 30%. I will get recent nuclear stress results. If no significant ischemia, then the patient will be treated medically. Echo will be repeated in 3-4 months and decision to have ICD would be based on repeat echo. 2. Increase coreg to meaningful doses, and increase lisinopril. Add aldactone, and watch lytes. 3. If there was ischemia on the last stress test, then I will advise a c cath. I will have this information by tomorrow.
[2018-03-09] MEDS: (Lantus) Insulin Glargine, Recombinant SC SCH (21:49)
[2018-03-09] MEDS: Rosuvastatin Calcium 2.5 mg Tab PO SCH (21:49)
--- NOTE | 2018-03-10 06:53 | CP.PCM.PN ---
<Chris Becker - Last Filed: 03/10/18 16:30> Subjective - Date & Time of Evaluation Date of Evaluation: 03/10/18 Time of Evaluation: 06:50 - Subjective Subjective: PGY-1 Medicine Progress Note for Dr. Reagan Patient seen and examined at bedside this AM, clean shaven and in better spirits. No acute overnight events reported. No pain hip/leg/groin pain noted, no acute somatic complaints. Denies fevers/chills, headaches, dizziness, chest pain, palpitations, SOB, cough, abdominal pain, n/v/d/c, dysuria, or changes in stool. Objective - Vital Signs/Intake and Output Vital Signs (last 24 hours): Temp Pulse Resp BP Pulse Ox 97.8 F 75 20 142/93 H 97 03/09/18 23:25 03/10/18 00:25 03/09/18 23:25 03/10/18 05:28 03/09/18 23:25 Intake and Output: 03/09/18 03/10/18 18:59 06:59 Intake Total 200 400 Output Total 500 2350 Balance -300 -1950 - Medications Medications: Current Medications Aspirin (Aspirin Chewable) 81 mg PO DAILY [facility] Last Admin: 03/09/18 10:59 Dose: 81 mg Calcium/Vitamin D (Oyster Shell Calcium/Vitamin D 500 Mg-200 Iu) 1 tab PO DAILY [facility] Last Admin: 03/09/18 10:59 Dose: 1 tab Carvedilol (Coreg) 12.5 mg PO BID [facility] Last Admin: 03/09/18 18:31 Dose: 12.5 mg Dextrose (Dextrose 50% Inj) 0 ml IV STAT PRN; Protocol PRN Reason: Hypoglycemia Protocol Dextrose (Glutose 15) 0 gm PO ONCE PRN; Protocol PRN Reason: Hypoglycemia Protocol Docusate Sodium (Colace) 100 mg PO BID [facility] Last Admin: 03/09/18 17:26 Dose: 100 mg Ergocalciferol (Drisdol 50,000 Intl Units Cap) 1 cap PO Q7D [facility] Stop: 04/24/18 14:00 Last Admin: 03/06/18 14:19 Dose: 1 cap Furosemide (Lasix) 20 mg IVP Q12H [facility] Last Admin: 03/10/18 05:28 Dose: 20 mg Glucagon (Glucagen Diagnostic Kit) 0 mg IM STAT PRN; Protocol PRN Reason: Hypoglycemia Protocol Heparin Sodium (Porcine) (Heparin) 5,000 units SC Q8 [facility] Last Admin: 03/10/18 05:27 Dose: 5,000 units Dextrose (Dextrose 5% In Water 1000 Ml) 1,000 mls @ 0 mls/hr IV .Q0M PRN; Protocol PRN Reason: Hypoglycemia Protocol Ceftriaxone Sodium 1 gm/ (Sodium Chloride) 100 mls @ 100 mls/hr IVPB DAILY [facility]; Protocol Last Admin: 03/09/18 11:03 Dose: 100 mls/hr Insulin Aspart (Novolog) 10 unit SC ACBL [facility] Last Admin: 03/09/18 13:10 Dose: 10 units Insulin Glargine (Lantus) 34 unit SC HS [facility] Last Admin: 03/09/18 21:49 Dose: 34 units Insulin Human Regular (Novolin R) 0 unit SC ACHS [facility]; Protocol Last Admin: 03/09/18 21:44 Dose: Not Given Lactic Acid (Lac-Hydrin 12% Lotion (225 G)) 0 gm EXT BID [facility] Stop: 03/20/18 16:00 Last Admin: 03/09/18 17:30 Dose: 1 applic Lactobacillus Acidophilus (Bacid Acidophilus) 1 cap PO BID [facility] Last Admin: 03/09/18 17:26 Dose: 1 cap Lisinopril (Zestril) 10 mg PO DAILY [facility] Last Admin: 03/09/18 17:26 Dose: 10 mg Morphine Sulfate (Morphine) 0.5 mg IVP Q6 PRN PRN Reason: Pain, moderate (4-7) Morphine Sulfate (Morphine) 1 mg IVP Q6 PRN PRN Reason: Pain, severe (8-10) Nystatin (Nystop Topical Powder) 1 applic TOP BID [facility] Stop: 03/20/18 18:00 Last Admin: 03/09/18 17:31 Dose: 1 applic Rosuvastatin Calcium (Crestor) 2.5 mg PO HS [facility] Last Admin: 03/09/18 21:49 Dose: 2.5 mg Spironolactone (Aldactone) 25 mg PO DAILY [facility] Last Admin: 03/09/18 17:26 Dose: 25 mg - Labs Labs: 03/09/18 07:52 03/09/18 07:52 PT 12.0 SECONDS (9.7-12.2) 12/18/18 07:56 INR 1.1 03/08/18 07:56 - Constitutional Appears: No Acute Distress, Chronically Ill, Other (morbidly obese) - Head Exam Head Exam: ATRAUMATIC, NORMAL INSPECTION, NORMOCEPHALIC - Eye Exam Eye Exam: EOMI, Normal appearance, PERRL - ENT Exam ENT Exam: Mucous Membranes Moist, Normal Exam - Neck Exam Neck Exam: Full ROM, Normal Inspection - Respiratory Exam Respiratory Exam: Clear to Ausculation Bilateral, NORMAL BREATHING PATTERN. absent: Accessory Muscle Use, Rales, Rhonchi, Wheezes, Respiratory Distress, Stridor - Cardiovascular Exam Cardiovascular Exam: REGULAR RHYTHM, +S1, +S2 - GI/Abdominal Exam GI & Abdominal Exam: Soft, Normal Bowel Sounds. absent: Distended, Firm, Guarding, Rigid, Tenderness, Rebound Additional comments: morbidly obese - Exam Exam: Scrotal Swelling Additional comments: Erythema to scrotum and inguinal folds improving, nystatin powder applied. Penile retraction with rowley draining clear yellow urine. - Extremities Exam Extremities Exam: Normal Capillary Refill, Pedal Edema. absent: Calf Tenderness Additional comments: [place] bandage RLE B/L LE from knees down 2+ pitting edema. Redness improved. Non tender to palpation. - Neurological Exam Neurological Exam: Alert, Awake, Oriented x3 - Psychiatric Exam Psychiatric exam: Depressed, Flat Affect - Skin Skin Exam: Dry, Warm Additional comments: as noted above Assessment and Plan - Assessment and Plan (Free Text) Assessment: 62 year old M with PMHx of HTN, DM type II presenting s/p 2 falls. Denies LOC or head trauma. No acute fractures noted but has chronic L femoral neck fracture. Denies previous history of falls or syncopal events. 2+ pitting edema in legs bilaterally. Being evaluated for LE lymphedema/venous insufficiency Also endorses tingling sensation to dorsum of feet bilaterally. Plan: Cardiomyopathy -abnormal EKG w/ PVCs and ST/T wave abnormalities -BNP 12,000 -CXR: cardiomegaly -head of bed @45 degrees -daily weights, I/O -ECHO (03/07): EF 30%, LV systolic function is severely impaired. Moderate dilatation of all chambers. Grade 1 diastolic dysfunction-pseudonormal filling dynamics. RV systolic function moderately reduced. Mild tricuspid regurgitation. RV systolic pressure 30-40 mmHg suggestive of mild pulmonary HTN. Dilated IVC with poor inspiration collapse consistent with elevated RA pressure. Trace pericardial effusion. -Pt's private immigration officer (Dr. Nuñez) recs appreciated -patient was last seen in July, had nuclear stress test done but did not follow up results -f/u recent results; if no significant ischemia is noted, pt will be treated medically -if ischemia is noted, cardiac cath advised -repeat ECHO x 3-4 months, decision on ICD to be made at that time -increase coreg, lisinopril -add aldactone, monitor electrolytes -Medications -Coreg 12.5 mg PO BID -Lisinopril 10 mg PO daily -Aldactone 25 mg PO daily -ASA 81 mg PO daily LE edema, likely 2/2 chronic venous insufficiency vs CHF -SCD contraindication -lac-hydrin to dorsum and heels b/l BID x7 days -d/c on 03/13 -LE duplex (03/06): -no evidence of deep or superficial vein thrombosis of b/l LE -mild valvular incompetence noted of the L great saphenous vein -Wound care on board -Podiatry recs (Dr. Sarmiento) appreciated -R leg dressing changes using xeroform, ABD, and DSD -Medihoney to be added to daily dressing change -pt to wear multipodus boot at all times while in bead s/p fall, 2/2 LE weakness/paresthesias, new onset HF -fall risk protocol -head CT, knee x-rays, hip x-ray negative for acute fracture. Left fem neck fracture-old LE ulcers, stage 2 and unstageable -Lasix 20 mg IVP BID -wound care Fungal infection, B/L inguinal, scrotal, intergluteal cleft -topical nystatin BID x 14 days -rowley for penile retraction, rowley care w/ betadine TID DM2, uncontrolled -A1C 12.7 -ISS high dose -Lantus to 34 units HS -Novolog 10 units ACBL -hypoglycemia protocol -lipid panel WNL, low dose crestor on board Poor hygeine, difficulty caring for self-pt agreed -senior case manager/social eval -PT eval: recommend OMI when stable for discharge -Per friend at bedside, patient is depressed but denies. Has not left apt in 4 years, is unkempt, is medically noncompliant. Refusing to admit he is not able to ambulate. -Patient's sister, Rut , agrees with friend and wants brother to get help. 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 -Psych consulted (Dr. Pepper who transferred case to Dr. Croft) -f/u Psych recs HTN -continue to monitor -Lasix 20 mg IVP BID -Lisinopril 10 mg PO daily -Aldactone 25 mg PO daily -Coreg 12.5 mg PO BID Possible UTI -Urine Cx (03/05): no growth -Wound Cx (03/06): prelim gram positive cocci -Rocephin 1gm IV daily PPx, Diet, Disposition -DVT ppx: SCD contraindication; heparin 5000 units q8h -GI ppx: lactobacillus -Diet: Heart healthy, low salt -Disposition: f/u Cardio (Dr. Nuñez) and Psych (Dr. Croft) recs prior to d/c to [facility] Case discussed with Dr. Tez Becker DO, PGY-1 <Syd Reagan - Last Filed: 03/11/18 19:53> Objective - Vital Signs/Intake and Output Vital Signs (last 24 hours): Temp Pulse Resp BP Pulse Ox 98.5 F 71 18 125/78 96 03/11/18 15:00 03/11/18 16:05 03/11/18 15:00 03/11/18 16:55 03/11/18 15:00 Intake and Output: 03/11/18 03/12/18 18:59 06:59 Intake Total 680 Output Total 800 Balance -120 - Labs Labs: 03/11/18 07:40 03/11/18 07:40 PT 12.0 SECONDS (9.7-12.2) 03/08/18 07:56 INR 1.1 03/08/18 07:56 Attending/Attestation - Attestation I have personally seen and examined this patient.: Yes I have fully participated in the care of the patient.: Yes I have reviewed all pertinent clinical information, including history, physical exam and plan: Yes Notes (Text): No complain,patient's edema is improving denies sob,denies pain,denies depression continue current cardiac meds as per immigration officer we will follow cardio recommendation Assessment and the plan discussed with the resident and I agree with the documentation
--- NOTE | 2018-03-10 08:08 | CP.PCM.PN ---
Subjective - Date & Time of Evaluation Date of Evaluation: 03/10/18 Time of Evaluation: 08:06 - Subjective Subjective: Offers no complaints this am. Denies pain in hip/groin. Review of Systems - Review of Systems All systems: reviewed and no additional remarkable complaints except - Cardiovascular Cardiovascular: UNREMARKABLE - Respiratory Respiratory: UNREMARKABLE - Gastrointestinal Gastrointestinal: UNREMARKABLE - Musculoskeletal Musculoskeletal: As Par HPI - Integumentary Integumentary: Skin Ulcer - Neurological Neurological: UNREMARKABLE - Hematologic/Lymphatic Hematologic: UNREMARKABLE Objective - Vital Signs/Intake and Output Vital Signs (last 24 hours): Temp Pulse Resp BP Pulse Ox 98.3 F 75 20 124/85 97 03/10/18 07:00 03/10/18 07:00 03/10/18 07:00 03/10/18 07:00 03/10/18 07:00 Intake and Output: 03/10/18 03/10/18 06:59 18:59 Intake Total 400 Output Total 2350 Balance -1950 - Medications Medications: Current Medications Aspirin (Aspirin Chewable) 81 mg PO DAILY [facility] Last Admin: 03/09/18 10:59 Dose: 81 mg Calcium/Vitamin D (Oyster Shell Calcium/Vitamin D 500 Mg-200 Iu) 1 tab PO DAILY [facility] Last Admin: 03/09/18 10:59 Dose: 1 tab Carvedilol (Coreg) 12.5 mg PO BID [facility] Last Admin: 03/09/18 18:31 Dose: 12.5 mg Dextrose (Dextrose 50% Inj) 0 ml IV STAT PRN; Protocol PRN Reason: Hypoglycemia Protocol Dextrose (Glutose 15) 0 gm PO ONCE PRN; Protocol PRN Reason: Hypoglycemia Protocol Docusate Sodium (Colace) 100 mg PO BID [facility] Last Admin: 03/09/18 17:26 Dose: 100 mg Ergocalciferol (Drisdol 50,000 Intl Units Cap) 1 cap PO Q7D [facility] Stop: 04/24/18 14:00 Last Admin: 03/06/18 14:19 Dose: 1 cap Furosemide (Lasix) 20 mg IVP Q12H [facility] Last Admin: 03/10/18 05:28 Dose: 20 mg Glucagon (Glucagen Diagnostic Kit) 0 mg IM STAT PRN; Protocol PRN Reason: Hypoglycemia Protocol Heparin Sodium (Porcine) (Heparin) 5,000 units SC Q8 [facility] Last Admin: 03/10/18 05:27 Dose: 5,000 units Dextrose (Dextrose 5% In Water 1000 Ml) 1,000 mls @ 0 mls/hr IV .Q0M PRN; Protocol PRN Reason: Hypoglycemia Protocol Ceftriaxone Sodium 1 gm/ (Sodium Chloride) 100 mls @ 100 mls/hr IVPB DAILY [facility]; Protocol Last Admin: 03/09/18 11:03 Dose: 100 mls/hr Insulin Aspart (Novolog) 10 unit SC ACBL [facility] Last Admin: 03/09/18 13:10 Dose: 10 units Insulin Glargine (Lantus) 34 unit SC [facility] Last Admin: 03/09/18 21:49 Dose: 34 units Insulin Human Regular (Novolin R) 0 unit SC ACHS [facility]; Protocol Last Admin: 03/09/18 21:44 Dose: Not Given Lactic Acid (Lac-Hydrin 12% Lotion (225 G)) 0 gm EXT BID [facility] Stop: 03/20/18 16:00 Last Admin: 03/09/18 17:30 Dose: 1 applic Lactobacillus Acidophilus (Bacid Acidophilus) 1 cap PO BID [facility] Last Admin: 03/09/18 17:26 Dose: 1 cap Lisinopril (Zestril) 10 mg PO DAILY [facility] Last Admin: 03/09/18 17:26 Dose: 10 mg Morphine Sulfate (Morphine) 0.5 mg IVP Q6 PRN PRN Reason: Pain, moderate (4-7) Morphine Sulfate (Morphine) 1 mg IVP Q6 PRN PRN Reason: Pain, severe (8-10) Nystatin (Nystop Topical Powder) 1 applic TOP BID [facility] Stop: 03/20/18 18:00 Last Admin: 03/09/18 17:31 Dose: 1 applic Rosuvastatin Calcium (Crestor) 2.5 mg PO [facility] Last Admin: 03/09/18 21:49 Dose: 2.5 mg Spironolactone (Aldactone) 25 mg PO DAILY [facility] Last Admin: 03/09/18 17:26 Dose: 25 mg - Labs Labs: 03/09/18 07:52 03/09/18 07:52 PT 12.0 SECONDS (9.7-12.2) 03/08/18 07:56 INR 1.1 03/08/18 07:56 - Constitutional Appears: Well, No Acute Distress - Head Exam Head Exam: ATRAUMATIC - Respiratory Exam Respiratory Exam: NORMAL BREATHING PATTERN - Extremities Exam Extremities Exam: Normal Inspection Additional comments: LLE: no pain wtih AROM left knee/hip calves soft NT neg homans - Neurological Exam Neurological Exam: Alert, Awake, Oriented x3 Neuro motor strength exam: Left Lower Extremity: 5, Right Lower Extremity: 5 - Psychiatric Exam Psychiatric exam: Normal Affect, Normal Mood - Skin Skin Exam: Dry, Intact, Warm Additional comments: LLE Assessment and Plan (1) Nondisplaced fracture of neck of left femur with routine healing Assessment & Plan: cont PT/OT pending rehab placement improving daily with PT non operative VTE proph f/u as outpatient 2 weeks call for appt d/w Dr. Smith, agrees with above Status: Acute (2) Vitamin D deficiency Status: Acute
[2018-03-10] MEDS: (Novolin R) Insulin Human Regular 100 units/ml vial SC SCH ×4 (08:30→21:10)
[2018-03-10] MEDS: (Novolog) Insulin Aspart, Recombinant 100 u/ml 10 ml vial SC SCH ×2 (08:30→12:49)
--- NOTE | 2018-03-10 09:31 | CP.PCM.PN ---
Subjective - Date & Time of Evaluation Date of Evaluation: 03/10/18 Time of Evaluation: 09:31 - Subjective Subjective: Podiatry - Dr. Sarmiento 62M seen and evaluated for RLE wounds. Resting comfortably, NAD. No acute events overnight. No new lower extremity complaints. Denies n/v/f/d/c/sob. Objective - Vital Signs/Intake and Output Vital Signs (last 24 hours): Temp Pulse Resp BP Pulse Ox 98.3 F 75 20 124/85 97 03/10/18 07:00 03/10/18 07:00 03/10/18 07:00 03/10/18 07:00 03/10/18 07:00 Intake and Output: 03/10/18 03/10/18 06:59 18:59 Intake Total 400 Output Total 2350 Balance -1950 - Medications Medications: Current Medications Aspirin (Aspirin Chewable) 81 mg PO DAILY [facility] Last Admin: 03/09/18 10:59 Dose: 81 mg Calcium/Vitamin D (Oyster Shell Calcium/Vitamin D 500 Mg-200 Iu) 1 tab PO DAILY [facility] Last Admin: 03/09/18 10:59 Dose: 1 tab Carvedilol (Coreg) 12.5 mg PO BID [facility] Last Admin: 03/09/18 18:31 Dose: 12.5 mg Dextrose (Dextrose 50% Inj) 0 ml IV STAT PRN; Protocol PRN Reason: Hypoglycemia Protocol Dextrose (Glutose 15) 0 gm PO ONCE PRN; Protocol PRN Reason: Hypoglycemia Protocol Docusate Sodium (Colace) 100 mg PO BID [facility] Last Admin: 03/09/18 17:26 Dose: 100 mg Ergocalciferol (Drisdol 50,000 Intl Units Cap) 1 cap PO Q7D [facility] Stop: 04/24/18 14:00 Last Admin: 03/06/18 14:19 Dose: 1 cap Furosemide (Lasix) 20 mg IVP Q12H [facility] Last Admin: 03/10/18 05:28 Dose: 20 mg Glucagon (Glucagen Diagnostic Kit) 0 mg IM STAT PRN; Protocol PRN Reason: Hypoglycemia Protocol Heparin Sodium (Porcine) (Heparin) 5,000 units SC Q8 [facility] Last Admin: 03/10/18 05:27 Dose: 5,000 units Dextrose (Dextrose 5% In Water 1000 Ml) 1,000 mls @ 0 mls/hr IV .Q0M PRN; Protocol PRN Reason: Hypoglycemia Protocol Ceftriaxone Sodium 1 gm/ (Sodium Chloride) 100 mls @ 100 mls/hr IVPB DAILY [facility]; Protocol Last Admin: 03/09/18 11:03 Dose: 100 mls/hr Insulin Aspart (Novolog) 10 unit SC ACBL [facility] Last Admin: 03/09/18 13:10 Dose: 10 units Insulin Glargine (Lantus) 34 unit SC HS [facility] Last Admin: 03/09/18 21:49 Dose: 34 units Insulin Human Regular (Novolin R) 0 unit SC ACHS [facility]; Protocol Last Admin: 03/09/18 21:44 Dose: Not Given Lactic Acid (Lac-Hydrin 12% Lotion (225 G)) 0 gm EXT BID [facility] Stop: 03/20/18 16:00 Last Admin: 03/09/18 17:30 Dose: 1 applic Lactobacillus Acidophilus (Bacid Acidophilus) 1 cap PO BID [facility] Last Admin: 03/09/18 17:26 Dose: 1 cap Lisinopril (Zestril) 10 mg PO DAILY [facility] Last Admin: 03/09/18 17:26 Dose: 10 mg Morphine Sulfate (Morphine) 0.5 mg IVP Q6 PRN PRN Reason: Pain, moderate (4-7) Morphine Sulfate (Morphine) 1 mg IVP Q6 PRN PRN Reason: Pain, severe (8-10) Nystatin (Nystop Topical Powder) 1 applic TOP BID [facility] Stop: 03/20/18 18:00 Last Admin: 03/09/18 17:31 Dose: 1 applic Rosuvastatin Calcium (Crestor) 2.5 mg PO [facility] Last Admin: 03/09/18 21:49 Dose: 2.5 mg Spironolactone (Aldactone) 25 mg PO DAILY [facility] Last Admin: 03/09/18 17:26 Dose: 25 mg - Labs Labs: 03/09/18 07:52 03/09/18 07:52 PT 12.0 SECONDS (9.7-12.2) 03/08/18 07:56 INR 1.1 03/08/18 07:56 - Constitutional Appears: Non-toxic, No Acute Distress - Extremities Exam Additional comments: B/L LE focused exam: Vasc: DP/PT pulses are non-palpable b/l 2/2 edema. CFT < 3 seconds to all digits. Temperature gradient warm to warm from proximal to distal b/l. +3 pitting edema noted to b/l LE up to the level of the tibial tuberosity. Erythema and mottling noted to b/l LE up to the level of the upper 1/3 of the leg. Neuro: Gross and protective sensations are grossly diminished b/l Derm: Erythema and mottling noted to b/l LE up to the level of the upper 1/3 of the leg. The erythema blenches out by direct pressure. scattered breaks in the skin of both legs covered by dry eschars. Superficial ulcerations o noted on the lateral aspect of the left leg with mild serous drainage, No malodor. MSK: Muscle power intact 5/5 to all major muscle groups b/l. No pain on palpation present. - Neurological Exam Neurological Exam: Alert, Awake, Oriented x3 - Psychiatric Exam Psychiatric exam: Flat Affect Assessment and Plan - Assessment and Plan (Free Text) Assessment: 62M with RLE venous stasis ulcerations + dermatitis Plan: Patient seen and evaluated Discussed with attending, Dr. Sarmiento Afebrile Bilateral tibfib XR: Negative OM or acute fracture Bilateral LE venous duplex: (-)DVT Continue local wound care RLE: Xeroform, DSD, [place] Continue multipodus boots Podiatry will continue to follow
[2018-03-10] MEDS: Calcium-Vit D 500 mg-200 Units Tab UD PO SCH (10:02)
[2018-03-10] MEDS: Ammonium Lactate 12% Lotion (225 g) EXT SCH ×2 (10:03→17:19)
[2018-03-10] MEDS: Lactobacillus Acidophilus 500 MU Cap PO SCH ×2 (10:05→17:15)
[2018-03-10 11:24] LABS: BASO % 0.9 % (0.0-2.0); EOS # 0.2 K/uL (0.0-0.7); LYMPH # 1.3 K/uL (1.0-4.3); LYMPH % 28.6 % (20.0-40.0); MEAN CELL VOLUME 86.7 fL (80.0-94.0); MEAN CORPUSCULAR HEMOGLOBIN 28.8 pg (27.0-31.0); MEAN CORPUSCULAR HGB CONC 33.2 g/dL (33.0-37.0); MEAN PLATELET VOLUME 8.3 fL (7.2-11.7); MONO # 0.5 K/uL (0.0-0.8); MONO % 10.7 % (0.0-10.0); NEUT # 2.6 K/uL (1.8-7.0); NEUT % 54.8 % (50.0-75.0); NRBC % 0.1 % (0.0-2.0); RBC 4.88 Mil/uL (4.40-5.90); RED CELL DISTRIBUTION WIDTH 14.5 % (11.5-14.5); WHITE BLOOD COUNT 4.7 K/uL (4.8-10.8)
[2018-03-10 11:36] LABS: ALB/GLOB RATIO 0.9 (1.0-2.1); ALBUMIN 2.8 g/dL (3.5-5.0); ALT/SGPT 25 U/L (21-72); AST/SGOT 27 U/L (17-59); BLOOD UREA NITROGEN 16 mg/dL (9-20); CALCIUM 8.2 mg/dl (8.6-10.4); GFR NON-AFRICAN AMERICAN > 60
--- NOTE | 2018-03-10 14:07 | CT ---
Date of service: 03/09/2018 PROCEDURE: CT Chest without contrast HISTORY: r/o Right lung nodule COMPARISON: None available. TECHNIQUE: Contiguous axial images were obtained through the chest without intravenous contrast enhancement. Sagittal and coronal reconstructions were performed. Radiation dose: Total exam DLP = 1154.27 mGy-cm. This CT exam was performed using one or more of the following dose reduction techniques: Automated exposure control, adjustment of the mA and/or kV according to patient size, and/or use of iterative reconstruction technique. FINDINGS: LUNGS: Clear lungs. Visualized airway clear. No evidence of infiltrate or nodule MEDIASTINUM: Unremarkable thoracic aorta. No aneurysm. Cardiomegaly main pulmonary artery unremarkable. No vascular congestion. No lymphadenopathy. No aortic atherosclerotic calcification. PLEURA: No pleural fluid. No pneumothorax. BONES: No fracture. No destructive lesion. UPPER ABDOMEN: Gallbladder removed. Large left renal cyst OTHER FINDINGS: The report concurs with the preliminary [facility] report IMPRESSION: Unremarkable non-contrast enhanced CT of the chest.
[2018-03-10] MEDS: Rosuvastatin Calcium 2.5 mg Tab PO SCH (21:40)
[2018-03-10] MEDS: (Lantus) Insulin Glargine, Recombinant SC SCH (21:40)
--- NOTE | 2018-03-11 08:11 | CP.PCM.PN ---
Subjective - Date & Time of Evaluation Date of Evaluation: 03/11/18 Time of Evaluation: 08:08 - Subjective Subjective: No subjective: pt not seen today. Objective - Vital Signs/Intake and Output Vital Signs (last 24 hours): Temp Pulse Resp BP Pulse Ox 98.6 F 75 20 142/95 H 95 03/10/18 23:30 03/11/18 00:30 03/10/18 23:30 03/11/18 05:09 03/10/18 23:30 Intake and Output: 03/11/18 03/11/18 06:59 18:59 Intake Total 500 Output Total 1300 Balance -800 - Medications Medications: Current Medications Aspirin (Aspirin Chewable) 81 mg PO DAILY [facility] Last Admin: 03/10/18 10:03 Dose: 81 mg Calcium/Vitamin D (Oyster Shell Calcium/Vitamin D 500 Mg-200 Iu) 1 tab PO DAILY [facility] Last Admin: 03/10/18 10:02 Dose: 1 tab Carvedilol (Coreg) 12.5 mg PO BID [facility] Last Admin: 03/10/18 17:15 Dose: 12.5 mg Dextrose (Dextrose 50% Inj) 0 ml IV STAT PRN; Protocol PRN Reason: Hypoglycemia Protocol Dextrose (Glutose 15) 0 gm PO ONCE PRN; Protocol PRN Reason: Hypoglycemia Protocol Docusate Sodium (Colace) 100 mg PO BID [facility] Last Admin: 03/10/18 17:14 Dose: 100 mg Ergocalciferol (Drisdol 50,000 Intl Units Cap) 1 cap PO Q7D [facility] Stop: 04/24/18 14:00 Last Admin: 03/06/18 14:19 Dose: 1 cap Furosemide (Lasix) 20 mg IVP Q12H [facility] Last Admin: 03/11/18 05:09 Dose: 20 mg Glucagon (Glucagen Diagnostic Kit) 0 mg IM STAT PRN; Protocol PRN Reason: Hypoglycemia Protocol Heparin Sodium (Porcine) (Heparin) 5,000 units SC Q8 [facility] Last Admin: 03/11/18 05:10 Dose: 5,000 units Dextrose (Dextrose 5% In Water 1000 Ml) 1,000 mls @ 0 mls/hr IV .Q0M PRN; Protocol PRN Reason: Hypoglycemia Protocol Ceftriaxone Sodium 1 gm/ (Sodium Chloride) 100 mls @ 100 mls/hr IVPB DAILY [facility]; Protocol Last Admin: 03/10/18 10:02 Dose: 100 mls/hr Insulin Aspart (Novolog) 10 unit SC ACBL [facility] Last Admin: 03/10/18 12:49 Dose: 10 units Insulin Glargine (Lantus) 34 unit SC HS [facility] Last Admin: 03/10/18 21:40 Dose: 34 units Insulin Human Regular (Novolin R) 0 unit SC ACHS [facility]; Protocol Last Admin: 03/10/18 21:10 Dose: Not Given Lactic Acid (Lac-Hydrin 12% Lotion (225 G)) 0 gm EXT BID [facility] Stop: 03/20/18 16:00 Last Admin: 03/10/18 17:19 Dose: 1 applic Lactobacillus Acidophilus (Bacid Acidophilus) 1 cap PO BID [facility] Last Admin: 03/10/18 17:15 Dose: 1 cap Lisinopril (Zestril) 10 mg PO DAILY [facility] Last Admin: 03/10/18 10:03 Dose: 10 mg Morphine Sulfate (Morphine) 0.5 mg IVP Q6 PRN PRN Reason: Pain, moderate (4-7) Morphine Sulfate (Morphine) 1 mg IVP Q6 PRN PRN Reason: Pain, severe (8-10) Nystatin (Nystop Topical Powder) 1 applic TOP BID [facility] Stop: 03/20/18 18:00 Last Admin: 03/10/18 17:19 Dose: 1 applic Rosuvastatin Calcium (Crestor) 2.5 mg PO [facility] Last Admin: 03/10/18 21:40 Dose: 2.5 mg Spironolactone (Aldactone) 25 mg PO DAILY [facility] Last Admin: 03/10/18 10:02 Dose: 25 mg - Labs Labs: 03/10/18 11:16 03/10/18 11:16 PT 12.0 SECONDS (9.7-12.2) 03/08/18 07:56 INR 1.1 03/08/18 07:56 Assessment and Plan - Assessment and Plan (Free Text) Assessment: Amreview of office noted reveals pt came for only part one of two day nuclear stress enoch, and only resting was done. Vitals are stable, lytes ok, bp better. Plan: increase core to 25 bid. Follow lytes, transition to po lasix. Pt should follow up in office for bp eval, second part of nuclear stress. Eventual repeat echo in 3-4 months to assess lv ef
[2018-03-11 08:14] LABS: BASO % 0.9 % (0.0-2.0); EOS # 0.3 K/uL (0.0-0.7); HEMOGLOBIN 15.4 g/dL (12.0-18.0); LYMPH # 1.3 K/uL (1.0-4.3); LYMPH % 24.1 % (20.0-40.0); MEAN CELL VOLUME 86.7 fL (80.0-94.0); MEAN CORPUSCULAR HEMOGLOBIN 28.6 pg (27.0-31.0); MEAN CORPUSCULAR HGB CONC 32.9 g/dL (33.0-37.0); MEAN PLATELET VOLUME 8.5 fL (7.2-11.7); MONO # 0.6 K/uL (0.0-0.8); MONO % 10.3 % (0.0-10.0); NEUT # 3.2 K/uL (1.8-7.0); NEUT % 59.7 % (50.0-75.0); NRBC % 0.1 % (0.0-2.0); RBC 5.4 Mil/uL (4.40-5.90); RED CELL DISTRIBUTION WIDTH 14.6 % (11.5-14.5); WHITE BLOOD COUNT 5.3 K/uL (4.8-10.8)
[2018-03-11 08:17] LABS: ALB/GLOB RATIO 0.9 (1.0-2.1); ALBUMIN 3.2 g/dL (3.5-5.0); ALT/SGPT 21 U/L (21-72); AST/SGOT 30 U/L (17-59); BLOOD UREA NITROGEN 19 mg/dL (9-20); CALCIUM 8.6 mg/dl (8.6-10.4); GFR NON-AFRICAN AMERICAN > 60
[2018-03-11 08:35] VITALS: TEMP 98.5
[2018-03-11] MEDS: (Novolog) Insulin Aspart, Recombinant 100 u/ml 10 ml vial SC SCH ×2 (08:52→12:39)
[2018-03-11] MEDS: (Novolin R) Insulin Human Regular 100 units/ml vial SC SCH ×2 (08:52→12:39)
[2018-03-11] MEDS: Lactobacillus Acidophilus 500 MU Cap PO SCH (09:37)
[2018-03-11] MEDS: Calcium-Vit D 500 mg-200 Units Tab UD PO SCH (09:37)
[2018-03-11] MEDS: Ammonium Lactate 12% Lotion (225 g) EXT SCH (09:38)
--- NOTE | 2018-03-11 10:40 | CP.PCM.PN ---
Subjective - Date & Time of Evaluation Date of Evaluation: 03/11/18 Time of Evaluation: 10:39 - Subjective Subjective: Patient offers no complaints this am. Still has rowley. Tolerating PT well. No hip/groin pain. Review of Systems - Review of Systems All systems: reviewed and no additional remarkable complaints except - Cardiovascular Cardiovascular: UNREMARKABLE - Respiratory Respiratory: UNREMARKABLE - Gastrointestinal Gastrointestinal: UNREMARKABLE - Genitourinary Genitourinary: As Per HPI - Musculoskeletal Musculoskeletal: As Par HPI - Hematologic/Lymphatic Hematologic: UNREMARKABLE Objective - Vital Signs/Intake and Output Vital Signs (last 24 hours): Temp Pulse Resp BP Pulse Ox 98.5 F 72 20 136/89 94 L 03/11/18 07:34 03/11/18 07:34 03/11/18 07:34 03/11/18 09:37 03/11/18 07:34 Intake and Output: 03/11/18 03/11/18 06:59 18:59 Intake Total 500 Output Total 1300 Balance -800 - Medications Medications: Current Medications Aspirin (Aspirin Chewable) 81 mg PO DAILY [facility] Last Admin: 03/11/18 09:37 Dose: 81 mg Calcium/Vitamin D (Oyster Shell Calcium/Vitamin D 500 Mg-200 Iu) 1 tab PO DAILY [facility] Last Admin: 03/11/18 09:37 Dose: 1 tab Carvedilol (Coreg) 25 mg PO BID [facility] Last Admin: 03/11/18 09:37 Dose: 25 mg Dextrose (Dextrose 50% Inj) 0 ml IV STAT PRN; Protocol PRN Reason: Hypoglycemia Protocol Dextrose (Glutose 15) 0 gm PO ONCE PRN; Protocol PRN Reason: Hypoglycemia Protocol Docusate Sodium (Colace) 100 mg PO BID [facility] Last Admin: 03/11/18 09:37 Dose: 100 mg Ergocalciferol (Drisdol 50,000 Intl Units Cap) 1 cap PO Q7D [facility] Stop: 04/24/18 14:00 Last Admin: 03/06/18 14:19 Dose: 1 cap Furosemide (Lasix) 20 mg IVP Q12H [facility] Last Admin: 03/11/18 05:09 Dose: 20 mg Glucagon (Glucagen Diagnostic Kit) 0 mg IM STAT PRN; Protocol PRN Reason: Hypoglycemia Protocol Heparin Sodium (Porcine) (Heparin) 5,000 units SC Q8 [facility] Last Admin: 03/11/18 05:10 Dose: 5,000 units Dextrose (Dextrose 5% In Water 1000 Ml) 1,000 mls @ 0 mls/hr IV .Q0M PRN; Protocol PRN Reason: Hypoglycemia Protocol Ceftriaxone Sodium 1 gm/ (Sodium Chloride) 100 mls @ 100 mls/hr IVPB DAILY [facility]; Protocol Last Admin: 03/11/18 09:38 Dose: 100 mls/hr Insulin Aspart (Novolog) 10 unit SC ACBL [facility] Last Admin: 03/11/18 08:52 Dose: 10 units Insulin Glargine (Lantus) 34 unit SC HS [facility] Last Admin: 03/10/18 21:40 Dose: 34 units Insulin Human Regular (Novolin R) 0 unit SC ACHS [facility]; Protocol Last Admin: 03/11/18 08:52 Dose: 2 units Lactic Acid (Lac-Hydrin 12% Lotion (225 G)) 0 gm EXT BID [facility] Stop: 03/20/18 16:00 Last Admin: 03/11/18 09:38 Dose: 1 applic Lactobacillus Acidophilus (Bacid Acidophilus) 1 cap PO BID [facility] Last Admin: 03/11/18 09:37 Dose: 1 cap Lisinopril (Zestril) 10 mg PO DAILY [facility] Last Admin: 03/11/18 09:37 Dose: 10 mg Morphine Sulfate (Morphine) 0.5 mg IVP Q6 PRN PRN Reason: Pain, moderate (4-7) Morphine Sulfate (Morphine) 1 mg IVP Q6 PRN PRN Reason: Pain, severe (8-10) Nystatin (Nystop Topical Powder) 1 applic TOP BID [facility] Stop: 03/20/18 18:00 Last Admin: 03/11/18 09:38 Dose: 1 applic Rosuvastatin Calcium (Crestor) 2.5 mg PO [facility] Last Admin: 03/10/18 21:40 Dose: 2.5 mg Spironolactone (Aldactone) 25 mg PO DAILY [facility] Last Admin: 03/11/18 09:38 Dose: 25 mg - Labs Labs: 03/11/18 07:40 03/11/18 07:40 PT 12.0 SECONDS (9.7-12.2) 03/08/18 07:56 INR 1.1 03/08/18 07:56 - Constitutional Appears: Well, No Acute Distress - Neck Exam Neck Exam: Full ROM, Normal Inspection - Respiratory Exam Respiratory Exam: NORMAL BREATHING PATTERN - Extremities Exam Additional comments: no pain with hip/knee ROM calves soft NT neg homans - Neurological Exam Neurological Exam: Alert, Awake, Oriented x3 Neuro motor strength exam: Left Lower Extremity: 5, Right Lower Extremity: 5 - Psychiatric Exam Psychiatric exam: Normal Affect, Normal Mood - Skin Skin Exam: Dry, Intact, Normal Color, Warm Assessment and Plan (1) Nondisplaced fracture of neck of left femur with routine healing Assessment & Plan: cont PT/OT pending rehab placement improving daily with PT non operative VTE proph f/u as outpatient 2 weeks call for appt d/w Dr. Smith, agrees with above Status: Acute (2) Vitamin D deficiency Status: Acute
--- NOTE | 2018-03-11 12:21 | CP.PCM.PN ---
Subjective - Date & Time of Evaluation Date of Evaluation: 03/11/18 Time of Evaluation: 12:20 - Subjective Subjective: Podiatry - Dr. Sarmiento 62M seen and evaluated for RLE wounds. Patient hemodynamically stable and NAD. No acute events overnight. No new lower extremity complaints. Denies n/v/f/d/c/sob. Objective - Vital Signs/Intake and Output Vital Signs (last 24 hours): Temp Pulse Resp BP Pulse Ox 98.5 F 72 20 136/89 94 L 03/11/18 07:34 03/11/18 07:34 03/11/18 07:34 03/11/18 09:37 03/11/18 07:34 Intake and Output: 03/11/18 03/11/18 06:59 18:59 Intake Total 500 Output Total 1300 Balance -800 - Medications Medications: Current Medications Aspirin (Aspirin Chewable) 81 mg PO DAILY [facility] Last Admin: 03/11/18 09:37 Dose: 81 mg Calcium/Vitamin D (Oyster Shell Calcium/Vitamin D 500 Mg-200 Iu) 1 tab PO DAILY [facility] Last Admin: 03/11/18 09:37 Dose: 1 tab Carvedilol (Coreg) 25 mg PO BID [facility] Last Admin: 03/11/18 09:37 Dose: 25 mg Dextrose (Dextrose 50% Inj) 0 ml IV STAT PRN; Protocol PRN Reason: Hypoglycemia Protocol Dextrose (Glutose 15) 0 gm PO ONCE PRN; Protocol PRN Reason: Hypoglycemia Protocol Docusate Sodium (Colace) 100 mg PO BID [facility] Last Admin: 03/11/18 09:37 Dose: 100 mg Ergocalciferol (Drisdol 50,000 Intl Units Cap) 1 cap PO Q7D [facility] Stop: 04/24/18 14:00 Last Admin: 03/06/18 14:19 Dose: 1 cap Furosemide (Lasix) 20 mg IVP Q12H [facility] Last Admin: 03/11/18 05:09 Dose: 20 mg Glucagon (Glucagen Diagnostic Kit) 0 mg IM STAT PRN; Protocol PRN Reason: Hypoglycemia Protocol Heparin Sodium (Porcine) (Heparin) 5,000 units SC Q8 [facility] Last Admin: 03/11/18 05:10 Dose: 5,000 units Dextrose (Dextrose 5% In Water 1000 Ml) 1,000 mls @ 0 mls/hr IV .Q0M PRN; Protocol PRN Reason: Hypoglycemia Protocol Ceftriaxone Sodium 1 gm/ (Sodium Chloride) 100 mls @ 100 mls/hr IVPB DAILY [facility]; Protocol Last Admin: 03/11/18 09:38 Dose: 100 mls/hr Insulin Aspart (Novolog) 10 unit SC ACBL [facility] Last Admin: 03/11/18 08:52 Dose: 10 units Insulin Glargine (Lantus) 34 unit SC HS [facility] Last Admin: 03/10/18 21:40 Dose: 34 units Insulin Human Regular (Novolin R) 0 unit SC ACHS [facility]; Protocol Last Admin: 03/11/18 08:52 Dose: 2 units Lactic Acid (Lac-Hydrin 12% Lotion (225 G)) 0 gm EXT BID [facility] Stop: 03/20/18 16:00 Last Admin: 03/11/18 09:38 Dose: 1 applic Lactobacillus Acidophilus (Bacid Acidophilus) 1 cap PO BID [facility] Last Admin: 03/11/18 09:37 Dose: 1 cap Lisinopril (Zestril) 10 mg PO DAILY [facility] Last Admin: 03/11/18 09:37 Dose: 10 mg Morphine Sulfate (Morphine) 0.5 mg IVP Q6 PRN PRN Reason: Pain, moderate (4-7) Morphine Sulfate (Morphine) 1 mg IVP Q6 PRN PRN Reason: Pain, severe (8-10) Nystatin (Nystop Topical Powder) 1 applic TOP BID [facility] Stop: 03/20/18 18:00 Last Admin: 03/11/18 09:38 Dose: 1 applic Rosuvastatin Calcium (Crestor) 2.5 mg PO HS [facility] Last Admin: 03/10/18 21:40 Dose: 2.5 mg Spironolactone (Aldactone) 25 mg PO DAILY [facility] Last Admin: 03/11/18 09:38 Dose: 25 mg - Labs Labs: 03/11/18 07:40 03/11/18 07:40 PT 12.0 SECONDS (9.7-12.2) 03/08/18 07:56 INR 1.1 03/08/18 07:56 - Constitutional Appears: Well, Non-toxic, No Acute Distress - Extremities Exam Additional comments: B/L LE focused exam: Vasc: DP/PT pulses are non-palpable b/l 2/2 edema. CFT < 3 seconds to all digits. Temperature gradient warm to warm from proximal to distal b/l. +3 pitting edema noted to b/l LE up to the level of the tibial tuberosity. Erythema and mottling noted to b/l LE up to the level of the upper 1/3 of the leg. Neuro: Gross and protective sensations are grossly diminished b/l Derm: Erythema and mottling noted to b/l LE up to the level of the upper 1/3 of the leg. The erythema blenches out by direct pressure. scattered breaks in the skin of both legs covered by dry eschars. Superficial ulcerations o noted on the lateral aspect of the left leg with mild serous drainage, No malodor. MSK: Muscle power intact 5/5 to all major muscle groups b/l. No pain on palpation present. - Neurological Exam Neurological Exam: Alert, Awake, Oriented x3 - Psychiatric Exam Psychiatric exam: Flat Affect Assessment and Plan - Assessment and Plan (Free Text) Assessment: 62M with RLE venous stasis ulcerations + dermatitis Plan: Patient seen and evaluated with attending, Dr. Sarmiento Afebrile, WBC WNL 5.3 Bilateral tibfib XR: Negative OM or acute fracture Bilateral LE venous duplex: (-)DVT Continue local wound care RLE: Xeroform, DSD, [place] Continue multipodus boots Stable from podiatric standpoint Podiatry will continue to follow
--- NOTE | 2018-03-11 15:10 | CP.PCM.DIS ---
<SairamirotylerChris - Last Filed: 03/11/18 15:40> Provider - Provider Date of Admission: 03/05/18 16:05 Attending physician: Syd Reagan MD Consults: 03/05/18 16:37 Wound Care [Nursing Referral for Wound Care] Routine Comment: Physician Instructions: groin intertriginous fungal infection Reason For Exam: unstageable right anterior leg ulcer and stage 2, 03/05/18 16:49 Podiatry Consult Stat Comment: Consulting Provider: Crow Sarmiento Consulting Physician: Crow Sarmiento Reason for Consult: Rt Lower leg ulcers, B/L Lower leg hyperkeratosis vs fungus 03/05/18 17:59 Orthopedic Consult Routine Comment: Consulting Provider: Candelario Smith III Consulting Physician: Candelario Smith III Reason for Consult: left femoral neck fracture 03/05/18 22:10 Social Work Referral Routine Comment: patient lives alone with no support Physician Instructions: Reason For Exam: patient lives alone with no support 03/06/18 20:06 Diabetic Education Referral Routine Comment: Patient needs to be taught insulin administration Physician Instructions: Have Diabetic Nurse from [facility] educate patient Reason For Exam: Uncontrolled DM 2 with HgBA1C 03/08/18 15:41 Psychiatry Consult Routine Comment: per friend, pt denies being depressed Consulting Provider: Adelia Pepper Consulting Physician: Adelia Pepper Reason for Consult: depression, has not left apt in 4 years, unkempt, noncompliant 03/09/18 09:55 Physician Consult Routine Comment: Consulting Provider: Franck Nuñez Consulting Physician: Franck Nuñez Reason for Consult: Systolic heart failure Time Spent in preparation of Discharge (in minutes): 40 Hospital Course - Lab Results Lab Results: Micro Results 03/06/18 11:03 Leg - Right Gram Stain - Final 03/06/18 11:03 Leg - Right Wound Culture - Final Staphylococcus Aureus 03/05/18 18:03 Urine,Catheterized Urine Culture - Final No Growth (<1,000 CFU/ML) Most Recent Lab Values WBC 5.3 K/uL (4.8-10.8) 03/11/18 07:40 RBC 5.40 Mil/uL (4.40-5.90) 03/11/18 07:40 Hgb 15.4 g/dL (12.0-18.0) 03/11/18 07:40 Hct 46.8 % (35.0-51.0) 03/11/18 07:40 MCV 86.7 fL (80.0-94.0) 03/11/18 07:40 MCH 28.6 pg (27.0-31.0) 03/11/18 07:40 MCHC 32.9 g/dL (33.0-37.0) L 03/11/18 07:40 RDW 14.6 % (11.5-14.5) H 03/11/18 07:40 Plt Count 208 K/uL (130-400) 03/11/18 07:40 MPV 8.5 fL (7.2-11.7) 03/11/18 07:40 Neut % (Auto) 59.7 % (50.0-75.0) 03/11/18 07:40 Lymph % (Auto) 24.1 % (20.0-40.0) 03/11/18 07:40 [place] % (Auto) 10.3 % (0.0-10.0) H 03/11/18 07:40 Eos % (Auto) 5.0 % (0.0-4.0) H 03/11/18 07:40 Baso % (Auto) 0.9 % (0.0-2.0) 03/11/18 07:40 Neut # (Auto) 3.2 K/uL (1.8-7.0) 03/11/18 07:40 Lymph # (Auto) 1.3 K/uL (1.0-4.3) 03/11/18 07:40 [place] # (Auto) 0.6 K/uL (0.0-0.8) 03/11/18 07:40 Eos # (Auto) 0.3 K/uL (0.0-0.7) 03/11/18 07:40 Baso # (Auto) 0.0 K/uL (0.0-0.2) 03/11/18 07:40 Neutrophils % (Manual) 86 % (50-75) H 03/05/18 13:28 Band Neutrophils % 1 % (0-2) 03/05/18 13:28 Lymphocytes % (Manual) 6 % (20-40) L 03/05/18 13:28 Monocytes % (Manual) 7 % (0-10) 03/05/18 13:28 Platelet Estimate Normal (NORMAL) 03/05/18 13:28 Large Platelets Present 03/05/18 13:28 Anisocytosis (manual) Slight 03/05/18 13:28 PT 12.0 SECONDS (9.7-12.2) 03/08/18 07:56 INR 1.1 03/08/18 07:56 Sodium 137 mmol/L (132-148) 03/11/18 07:40 Potassium 4.4 mmol/L (3.6-5.2) 03/11/18 07:40 Chloride 97 mmol/L (98-107) L 03/11/18 07:40 Carbon Dioxide 34 mmol/L (22-30) H 03/11/18 07:40 Anion Gap 10 (10-20) 03/11/18 07:40 BUN 19 mg/dL (9-20) 03/11/18 07:40 Creatinine 0.7 mg/dL (0.8-1.5) L 03/11/18 07:40 Est GFR ( Amer) > 60 03/11/18 07:40 Est GFR (Non-Af Amer) > 60 03/11/18 07:40 POC Glucose (mg/dL) 200 mg/dL (65-110) H 03/11/18 11:02 Random Glucose 185 mg/dL (75-110) H D 03/11/18 07:40 Hemoglobin A1c 12.7 % (4.2-6.5) H 03/06/18 08:33 Calcium 8.6 mg/dl (8.6-10.4) 03/11/18 07:40 Phosphorus 3.6 mg/dL (2.5-4.5) 03/11/18 07:40 Magnesium 1.9 mg/dL (1.6-2.3) 03/11/18 07:40 Total Bilirubin 0.7 mg/dL (0.2-1.3) 03/11/18 07:40 AST 30 U/L (17-59) 03/11/18 07:40 ALT 21 U/L (21-72) 03/11/18 07:40 Alkaline Phosphatase 74 U/L (38-126) 03/11/18 07:40 Total Creatine Kinase 396 U/L (55-170) H 03/05/18 13:28 Troponin I 0.0460 ng/mL (0.00-0.120) 03/05/18 15:40 NT-Pro-B Natriuret Pep 49861 pg/mL (0-900) H 03/05/18 16:22 Total Protein 6.6 g/dL (6.3-8.3) 03/11/18 07:40 Albumin 3.2 g/dL (3.5-5.0) L 03/11/18 07:40 Globulin 3.4 gm/dL (2.2-3.9) 03/11/18 07:40 Albumin/Globulin Ratio 0.9 (1.0-2.1) L 03/11/18 07:40 Triglycerides 112 mg/dL (0-149) 03/06/18 08:33 Cholesterol 119 mg/dL (0-199) 03/06/18 08:33 LDL Cholesterol Direct 64 mg/dL (0-129) 03/06/18 08:33 HDL Cholesterol 47 mg/dL (30-70) 03/06/18 08:33 Vitamin B12 210 pg/mL (239-931) L 03/05/18 15:40 25-OH Vitamin D Total < 12.8 NG/ML (30.0-100.0) L 03/05/18 15:05 Free T4 1.31 ng/dL (0.78-2.19) 03/05/18 15:04 TSH 3rd Generation 2.22 mIU/L (0.46-4.68) 03/05/18 15:40 Urine Color Yellow (YELLOW) 03/05/18 14:40 Urine Clarity Clear (Clear) 03/05/18 14:40 Urine pH 5.0 (5.0-8.0) 03/05/18 14:40 Ur Specific [place] 1.027 (1.003-1.030) 03/05/18 14:40 Urine Protein 3+ mg/dL (NEGATIVE) H 03/05/18 14:40 Urine Glucose (UA) 3+ mg/dL (Normal) H 03/05/18 14:40 Urine Ketones 1+ mg/dL (NEGATIVE) H 03/05/18 14:40 Urine Blood 2+ (NEGATIVE) H 03/05/18 14:40 Urine Nitrate Negative (NEGATIVE) 03/05/18 14:40 Urine Bilirubin Negative (NEGATIVE) 03/05/18 14:40 Urine Urobilinogen Normal mg/dL (0.2-1.0) 03/05/18 14:40 Ur Leukocyte Esterase Trace Juan C/uL (Negative) 03/05/18 14:40 Urine WBC (Auto) 7 /hpf (0-5) H 03/05/18 14:40 Urine RBC (Auto) 19 /hpf (0-3) H 03/05/18 14:40 Ur Squamous Epith Cells 1 /hpf (0-5) 03/05/18 14:40 Urine Bacteria Rare (<OCC) 03/05/18 14:40 Hyaline Casts 3-5 /lpf (0-2) H 03/05/18 14:40 Digoxin < 0.4 ng/mL (0.8-2.0) L 03/06/18 08:33 Urine Opiates Screen Negative (NEGATIVE) 03/05/18 16:07 Urine Methadone Screen Negative (NEGATIVE) 03/05/18 16:07 Ur Barbiturates Screen Negative (NEGATIVE) 03/05/18 16:07 Ur Phencyclidine Scrn Negative (NEGATIVE) 03/05/18 16:07 Ur Amphetamines Screen Negative (NEGATIVE) 03/05/18 16:07 U Benzodiazepines Scrn Negative (NEGATIVE) 03/05/18 16:07 U Oth Cocaine Metabols Negative (NEGATIVE) 03/05/18 16:07 U Cannabinoids Screen Negative (NEGATIVE) 03/05/18 16:07 RPR Nonreactive (NONREACTIVE) 03/05/18 15:44 Influenza Typ A,B (EIA) Negative for flu a/b (NEGATIVE) 03/05/18 15:44 - Hospital Course Hospital Course: HPI: Patient is a 62 year old male with past medical history of diabetes mellitus and hypertension who presented to the ED status-post 2 falls. Patient reports he fell yesterday while trying to get up from bed. Patient reports he felt somewhat lightheaded, then slipped on his wood floor attempting to get out of bed. Patient reports he landed on his bottom and denies loss of consciousness or trauma to head. Patient was then unable to get up from floor, and remained there overnight until neighbors called EMS. He refused to go to hospital as he thought the lightheadedness had passed, and had no pain. He then sustained a second fall getting out of bed this morning, and immediately called EMS to bring him to ED. Once again pt reports attempting to roll out of bed, falling onto knees; denies loss of consciousness of trauma to head. He denies previous history of falls or syncopal events. He reports approximately 2 months of dry cough. Swelling in legs bilaterally. Numbness to medial dorsum of feet bilaterally.Patient denies recent illness or fever like symptoms including chills/sweats. Denies chest pain, shortness of breath, abdominal pain, nausea, diarrhea, dysuria. The following is a summary of hospital course. For further detail, please refer to EMR. Cardiomyopathy -abnormal EKG w/ PVCs and ST/T wave abnormalities -BNP 12,000 -CXR: cardiomegaly -head of bed @45 degrees -daily weights, I/O -ECHO (03/07): EF 30%, LV systolic function is severely impaired. Moderate dilatation of all chambers. Grade 1 diastolic dysfunction-pseudonormal filling dynamics. RV systolic function moderately reduced. Mild tricuspid regurgitation. RV systolic pressure 30-40 mmHg suggestive of mild pulmonary HTN. Dilated IVC with poor inspiration collapse consistent with elevated RA pressure. Trace pericardial effusion. -Pt's private software integration developer (Dr. Nuñez) recs appreciated -patient was last seen in July, had nuclear stress test done but did not follow up results -f/u recent results; if no significant ischemia is noted, pt will be treated medically -if ischemia is noted, cardiac cath advised -repeat ECHO x 3-4 months, decision on ICD to be made at that time -increase coreg, lisinopril -add aldactone, monitor electrolytes -Medications -Coreg 25 mg PO BID -Lisinopril 10 mg PO daily -Aldactone 25 mg PO daily -ASA 81 mg PO daily LE edema, likely 2/2 chronic venous insufficiency vs CHF -SCD contraindication -lac-hydrin to dorsum and heels b/l BID x7 days -d/c on 03/13 -LE duplex (03/06): -no evidence of deep or superficial vein thrombosis of b/l LE -mild valvular incompetence noted of the L great saphenous vein -Wound care on board -Podiatry recs (Dr. Sarmiento) appreciated -R leg dressing changes using xeroform, ABD, and DSD -Medihoney to be added to daily dressing change -pt to wear multipodus boot at all times while in bead s/p fall, 2/2 LE weakness/paresthesias, new onset HF -fall risk protocol -head CT, knee x-rays, hip x-ray negative for acute fracture. Left fem neck fracture-old LE ulcers, stage 2 and unstageable -Lasix 20 mg IVP BID -wound care Fungal infection, B/L inguinal, scrotal, intergluteal cleft -topical nystatin BID x 14 days -rowley for penile retraction, rowley care w/ betadine TID DM2, uncontrolled -A1C 12.7 -ISS high dose -Lantus to 34 units HS -Novolog 10 units ACBL -hypoglycemia protocol -lipid panel WNL, low dose crestor on board Poor hygeine, difficulty caring for self-pt agreed -case consultant/social eval -PT eval: recommend OMI when stable for discharge -Per friend at bedside, patient is depressed but denies. Has not left apt in 4 years, is unkempt, is medically noncompliant. Refusing to admit he is not able to ambulate. -Patient's sister, Rut , agrees with friend and wants brother to get help. 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 -Psych consulted (Dr. Pepper who transferred case to Dr. Croft) -f/u Psych recs HTN -continue to monitor -Lasix 20 mg IVP BID -Lisinopril 10 mg PO daily -Aldactone 25 mg PO daily -Coreg 25 mg PO BID Possible UTI -Urine Cx (03/05): no growth -Wound Cx (03/06): prelim gram positive cocci -Rocephin 1gm IV daily PPx, Diet, Disposition -DVT ppx: SCD contraindication; heparin 5000 units q8h -GI ppx: lactobacillus -Diet: Heart healthy, low salt Patient is medically stable for discharge to subacute rehab, as per Dr. Bernadette castaneda. Patient is instructed to continue all medications as prescribed. Please follow up with your primary care provider within 1-2 weeks of discharge for continued care and management of chronic conditions. Patient is also instructed to follow up with his software integration developer (Dr. Nuñez) within a week of discharge for the second part of his nuclear stress test and blood pressure evaluation. Patient will need eventual repeat Echocardiogram, per recommendations, within 3- 4 months to assess left ventricular ejection fraction. If symptoms worsen, please return to the ED at any time. Thank you. - Date & Time of H&P Date of H&P: 03/11/18 Time of H&P: 15:10 Discharge Exam - Head Exam Head Exam: ATRAUMATIC, NORMAL INSPECTION, NORMOCEPHALIC - Eye Exam Eye Exam: EOMI, Normal appearance, PERRL Pupil Exam: NORMAL ACCOMODATION - ENT Exam ENT Exam: Mucous Membranes Moist, Normal Exam - Neck Exam Neck exam: Full Rom, Normal Inspection - Respiratory Exam Respiratory Exam: Clear to PA & Lateral, NORMAL BREATHING PATTERN, UNREMARKABLE. absent: Accessory Muscle Use, Rales, Rhonchi, Wheezes, Respiratory Distress, Stridor - GI/Abdominal Exam GI & Abdominal Exam: Normal Bowel Sounds, Soft, Unremarkable. absent: Distended, Firm, Guarding, Rebound, Tenderness Additional comments: morbidly obese - Exam Additional comments: Erythema to scrotum and inguinal folds improving, nystatin powder applied. Rowley cath in place draining adequate clear urine - Extremities Exam Extremities exam: normal capillary refill, normal inspection, pedal edema ( improved), pedal pulses present Additional comments: MI[place] bandage RLE B/L LE from knees down 2+ pitting edema. Redness improved. Non tender to palpation. - Neurological Exam Neurological exam: Alert, Oriented x3 - Psychiatric Exam Psychiatric exam: Normal Affect, Normal Mood - Skin Skin Exam: Dry, Warm Additional comments: as noted above Discharge Plan - Follow Up Plan Condition: STABLE Disposition: REHAB FACILITY/REHAB UNIT Instructions: Diabetes Diet , Diabetes Type 2 (DC), Femur Fracture (DC), Diabetes and Infections Additional Instructions: Patient is medically stable for discharge to subacute rehab, as per Dr. Reagan. Patient is instructed to continue all medications as prescribed. Please follow up with your primary care provider within 1-2 weeks of discharge for continued care and management of chronic conditions. Patient is also instructed to follow up with his software integration developer (Dr. Nuñez) within a week of discharge for the second part of his nuclear stress test and blood pressure evaluation. Patient will need eventual repeat Echocardiogram, per recommendation s, within 3-4 months to assess left ventricular ejection fraction. If symptoms worsen, please return to the ED at any time. Thank you. Referrals: Franck Nuñez MD [Staff Provider] - Candelario Smith III, MD [Staff Provider] - Crow Sarmiento DPM [Staff Provider] - <Syd Reagan - Last Filed: 03/11/18 19:51> Provider - Provider Date of Admission: 03/05/18 16:05 Attending physician: Syd Reagan MD Consults: 03/05/18 16:37 Wound Care [Nursing Referral for Wound Care] Routine Comment: Physician Instructions: groin intertriginous fungal infection Reason For Exam: unstageable right anterior leg ulcer and stage 2, 03/05/18 16:49 Podiatry Consult Stat Comment: Consulting Provider: Crow Sarmiento Consulting Physician: Crow Sarmiento Reason for Consult: Rt Lower leg ulcers, B/L Lower leg hyperkeratosis vs fungus 03/05/18 17:59 Orthopedic Consult Routine Comment: Consulting Provider: Candelario Smith III Consulting Physician: Candelario Smith III Reason for Consult: left femoral neck fracture 03/05/18 22:10 Social Work Referral Routine Comment: patient lives alone with no support Physician Instructions: Reason For Exam: patient lives alone with no support 03/06/18 20:06 Diabetic Education Referral Routine Comment: Patient needs to be taught insulin administration Physician Instructions: Have Diabetic Nurse from [facility] educate patient Reason For Exam: Uncontrolled DM 2 with HgBA1C 03/08/18 15:41 Psychiatry Consult Routine Comment: per friend, pt denies being depressed Consulting Provider: Adelia Pepper Consulting Physician: Adelia Pepper Reason for Consult: depression, has not left apt in 4 years, unkempt, noncompliant 03/09/18 09:55 Physician Consult Routine Comment: Consulting Provider: Franck Nuñez Consulting Physician: Franck Nuñez Reason for Consult: Systolic heart failure Hospital Course - Lab Results Lab Results: Micro Results 03/06/18 11:03 Leg - Right Gram Stain - Final 03/06/18 11:03 Leg - Right Wound Culture - Final Staphylococcus Aureus 03/05/18 18:03 Urine,Catheterized Urine Culture - Final No Growth (<1,000 CFU/ML) Most Recent Lab Values WBC 5.3 K/uL (4.8-10.8) 03/11/18 07:40 RBC 5.40 Mil/uL (4.40-5.90) 03/11/18 07:40 Hgb 15.4 g/dL (12.0-18.0) 03/11/18 07:40 Hct 46.8 % (35.0-51.0) 03/11/18 07:40 MCV 86.7 fL (80.0-94.0) 03/11/18 07:40 MCH 28.6 pg (27.0-31.0) 03/11/18 07:40 MCHC 32.9 g/dL (33.0-37.0) L 03/11/18 07:40 RDW 14.6 % (11.5-14.5) H 03/11/18 07:40 Plt Count 208 K/uL (130-400) 03/11/18 07:40 MPV 8.5 fL (7.2-11.7) 03/11/18 07:40 Neut % (Auto) 59.7 % (50.0-75.0) 03/11/18 07:40 Lymph % (Auto) 24.1 % (20.0-40.0) 03/11/18 07:40 [place] % (Auto) 10.3 % (0.0-10.0) H 03/11/18 07:40 Eos % (Auto) 5.0 % (0.0-4.0) H 03/11/18 07:40 Baso % (Auto) 0.9 % (0.0-2.0) 03/11/18 07:40 Neut # (Auto) 3.2 K/uL (1.8-7.0) 03/11/18 07:40 Lymph # (Auto) 1.3 K/uL (1.0-4.3) 03/11/18 07:40 [place] # (Auto) 0.6 K/uL (0.0-0.8) 03/11/18 07:40 Eos # (Auto) 0.3 K/uL (0.0-0.7) 03/11/18 07:40 Baso # (Auto) 0.0 K/uL (0.0-0.2) 03/11/18 07:40 Neutrophils % (Manual) 86 % (50-75) H 03/05/18 13:28 Band Neutrophils % 1 % (0-2) 03/05/18 13:28 Lymphocytes % (Manual) 6 % (20-40) L 03/05/18 13:28 Monocytes % (Manual) 7 % (0-10) 03/05/18 13:28 Platelet Estimate Normal (NORMAL) 03/05/18 13:28 Large Platelets Present 03/05/18 13:28 Anisocytosis (manual) Slight 03/05/18 13:28 PT 12.0 SECONDS (9.7-12.2) 03/08/18 07:56 INR 1.1 03/08/18 07:56 Sodium 137 mmol/L (132-148) 03/11/18 07:40 Potassium 4.4 mmol/L (3.6-5.2) 03/11/18 07:40 Chloride 97 mmol/L (98-107) L 03/11/18 07:40 Carbon Dioxide 34 mmol/L (22-30) H 03/11/18 07:40 Anion Gap 10 (10-20) 03/11/18 07:40 BUN 19 mg/dL (9-20) 03/11/18 07:40 Creatinine 0.7 mg/dL (0.8-1.5) L 03/11/18 07:40 Est GFR ( Amer) > 60 03/11/18 07:40 Est GFR (Non-Af Amer) > 60 03/11/18 07:40 POC Glucose (mg/dL) 212 mg/dL (65-110) H 03/11/18 16:22 Random Glucose 185 mg/dL (75-110) H D 03/11/18 07:40 Hemoglobin A1c 12.7 % (4.2-6.5) H 03/06/18 08:33 Calcium 8.6 mg/dl (8.6-10.4) 03/11/18 07:40 Phosphorus 3.6 mg/dL (2.5-4.5) 03/11/18 07:40 Magnesium 1.9 mg/dL (1.6-2.3) 03/11/18 07:40 Total Bilirubin 0.7 mg/dL (0.2-1.3) 03/11/18 07:40 AST 30 U/L (17-59) 03/11/18 07:40 ALT 21 U/L (21-72) 03/11/18 07:40 Alkaline Phosphatase 74 U/L (38-126) 03/11/18 07:40 Total Creatine Kinase 396 U/L (55-170) H 03/05/18 13:28 Troponin I 0.0460 ng/mL (0.00-0.120) 03/05/18 15:40 NT-Pro-B Natriuret Pep 23479 pg/mL (0-900) H 03/05/18 16:22 Total Protein 6.6 g/dL (6.3-8.3) 03/11/18 07:40 Albumin 3.2 g/dL (3.5-5.0) L 03/11/18 07:40 Globulin 3.4 gm/dL (2.2-3.9) 03/11/18 07:40 Albumin/Globulin Ratio 0.9 (1.0-2.1) L 03/11/18 07:40 Triglycerides 112 mg/dL (0-149) 03/06/18 08:33 Cholesterol 119 mg/dL (0-199) 03/06/18 08:33 LDL Cholesterol Direct 64 mg/dL (0-129) 03/06/18 08:33 HDL Cholesterol 47 mg/dL (30-70) 03/06/18 08:33 Vitamin B12 210 pg/mL (239-931) L 03/05/18 15:40 25-OH Vitamin D Total < 12.8 NG/ML (30.0-100.0) L 03/05/18 15:05 Free T4 1.31 ng/dL (0.78-2.19) 03/05/18 15:04 TSH 3rd Generation 2.22 mIU/L (0.46-4.68) 03/05/18 15:40 Urine Color Yellow (YELLOW) 03/05/18 14:40 Urine Clarity Clear (Clear) 03/05/18 14:40 Urine pH 5.0 (5.0-8.0) 03/05/18 14:40 Ur Specific [place] 1.027 (1.003-1.030) 03/05/18 14:40 Urine Protein 3+ mg/dL (NEGATIVE) H 03/05/18 14:40 Urine Glucose (UA) 3+ mg/dL (Normal) H 03/05/18 14:40 Urine Ketones 1+ mg/dL (NEGATIVE) H 03/05/18 14:40 Urine Blood 2+ (NEGATIVE) H 03/05/18 14:40 Urine Nitrate Negative (NEGATIVE) 03/05/18 14:40 Urine Bilirubin Negative (NEGATIVE) 03/05/18 14:40 Urine Urobilinogen Normal mg/dL (0.2-1.0) 03/05/18 14:40 Ur Leukocyte Esterase Trace Juan C/uL (Negative) 03/05/18 14:40 Urine WBC (Auto) 7 /hpf (0-5) H 03/05/18 14:40 Urine RBC (Auto) 19 /hpf (0-3) H 03/05/18 14:40 Ur Squamous Epith Cells 1 /hpf (0-5) 03/05/18 14:40 Urine Bacteria Rare (<OCC) 03/05/18 14:40 Hyaline Casts 3-5 /lpf (0-2) H 03/05/18 14:40 Digoxin < 0.4 ng/mL (0.8-2.0) L 03/06/18 08:33 Urine Opiates Screen Negative (NEGATIVE) 03/05/18 16:07 Urine Methadone Screen Negative (NEGATIVE) 03/05/18 16:07 Ur Barbiturates Screen Negative (NEGATIVE) 03/05/18 16:07 Ur Phencyclidine Scrn Negative (NEGATIVE) 03/05/18 16:07 Ur Amphetamines Screen Negative (NEGATIVE) 03/05/18 16:07 U Benzodiazepines Scrn Negative (NEGATIVE) 03/05/18 16:07 U Oth Cocaine Metabols Negative (NEGATIVE) 03/05/18 16:07 U Cannabinoids Screen Negative (NEGATIVE) 03/05/18 16:07 RPR Nonreactive (NONREACTIVE) 03/05/18 15:44 Influenza Typ A,B (EIA) Negative for flu a/b (NEGATIVE) 03/05/18 15:44 Attending/Attestation - Attestation I have personally seen and examined this patient.: Yes I have fully participated in the care of the patient.: Yes I have reviewed all pertinent clinical information, including history, physical exam and plan: Yes Notes (Text): Seen and examined today.Stable for discharge to rehab Patient will follow with Dr Nuñez as an out patient Spoke to Sister Rut about the plan of care Recommending to get out patient psychiatrist for possible depression. Patient denies depression.
[2018-03-11 15:58] VITALS: PULSE 71
[2018-03-11 16:10] VITALS: BP 125/78; RESP 18; O2SAT 96
== END 2018-03-11 17:20 | DRG 638 ==
LOC: C.ER 12:25 → C.9E 16:05 → C.3T 17:12 → C.9E 17:41 → C.5S 18:13 → C.9E 18:30 → C.5S 18:31
PROVIDERS: ADMIT Internal Medicine; ATTEND Internal Medicine
DX: E11.65 Type 2 diabetes mellitus with hyperglycemia (principal); E86.0 Dehydration; I11.0 Hypertensive heart disease with heart failure; I50.22 Chronic systolic (congestive) heart failure; I47.1 Supraventricular tachycardia; L97.819 Non-pressure chronic ulcer of other part of right lower leg with unspecified severity; E11.622 Type 2 diabetes mellitus with other skin ulcer; I07.1 Rheumatic tricuspid insufficiency; I49.3 Ventricular premature depolarization; I42.9 Cardiomyopathy, unspecified; E87.6 Hypokalemia; K21.9 Gastro-esophageal reflux disease without esophagitis; M17.0 Bilateral primary osteoarthritis of knee; I83.009 Varicose veins of unspecified lower extremity with ulcer of unspecified site; I87.2 Venous insufficiency (chronic) (peripheral); M16.12 Unilateral primary osteoarthritis, left hip; M84.452S Pathological fracture, left femur, sequela; B35.6 Tinea cruris; E55.9 Vitamin D deficiency, unspecified; M85.80 Other specified disorders of bone density and structure, unspecified site; F32.9 Major depressive disorder, single episode, unspecified; E66.9 Obesity, unspecified; G89.29 Other chronic pain; W06.XXXA Fall from bed, initial encounter; S72.002D Fracture of unspecified part of neck of left femur, subsequent encounter for closed fracture with routine healing; Z79.82 Long term (current) use of aspirin; Z89.422 Acquired absence of other left toe(s); Z79.4 Long term (current) use of insulin; Z91.14 Patient's other noncompliance with medication regimen; Z90.49 Acquired absence of other specified parts of digestive tract; Z91.19 Patient's noncompliance with other medical treatment and regimen; Z81.8 Family history of other mental and behavioral disorders